=== PATIENT | female | born 1960 ===

== ENCOUNTER 2020-04-25 08:44 | Outpatient (REF) | payer MEDICARE, MEDICAID, SELFPAY ==
[2020-04-25 10:19] LABS: Alanine Aminotransferase 13 U/L (0-31); Alkaline Phosphatase 118 U/L (39-117); Anion Gap 12 (12-20); Aspartate Amino Transferase 14 U/L (5-31); Bilirubin Total 0.5 mg/dL (0.0-1.0); Blood Urea Nitrogen 13 mg/dL (9-16); Calcium 9.3 mg/dL (8.4-10.2); Carbon Dioxide 33 mmol/L (22-29); Chloride 101 mmol/L (96-108); Cholesterol 157 mg/dL; Estimated Glomerular Filt Rate > 60; Glucose Fasting 86 mg/dL (60-99); HDL Cholesterol 49 mg/dL; LDL Cholesterol Calculated 95 mg/dl; Potassium 3.9 mmol/l (3.3-5.1); Sodium 142 mmol/L (135-145); Total Protein 7.6 g/dL (6.5-8.0); Triglycerides 68 mg/dL
[2020-04-25 10:20] LABS: Creatinine Urine 197.62 mg/dL
[2020-04-25 10:22] LABS: Estimated Average Glucose 128 mg/dL; Hemoglobin A1c % 6.1 %
[2020-04-25 10:36] LABS: Vitamin B12 437 pg/mL (200-900)
== END 2020-04-25 08:45 | disposition home or self-care (01) ==
LOC: HO.LAB 08:44
PROVIDERS: PCP Internal Medicine; Visit Provider Nurse Practitioner Gerontology
DX: E11.9 Type 2 diabetes mellitus without complications (principal); Z79.4 Long term (current) use of insulin
CPT/HCPCS: 36415; 80053; 80061; 82043; 82607; 83036

== ENCOUNTER → 2020-09-25 08:43 | Outpatient (BNVA) | payer MEDICARE, MEDICAID, SELFPAY | PROVIDERS: PCP Internal Medicine; Visit Provider Nurse Practitioner Gerontology | DX: E11.9 Type 2 diabetes mellitus without complications (principal); E78.5 Hyperlipidemia, unspecified; E66.01 Morbid (severe) obesity due to excess calories; I10 Essential (primary) hypertension; R74.8 Abnormal levels of other serum enzymes; Z68.41 Body mass index [BMI] 40.0-44.9, adult; Z79.4 Long term (current) use of insulin | CPT/HCPCS: 82947; 99212 ==

== ENCOUNTER → 2021-07-07 09:27 | Outpatient (BNVA) | payer MEDICARE, MEDICAID, SELFPAY | PROVIDERS: PCP Internal Medicine; Visit Provider Nurse Practitioner Gerontology | DX: E66.01 Morbid (severe) obesity due to excess calories (principal); I10 Essential (primary) hypertension; E78.5 Hyperlipidemia, unspecified; Z68.41 Body mass index [BMI] 40.0-44.9, adult | CPT/HCPCS: 82947; 83036; 99212 ==

== ENCOUNTER 2021-07-10 09:17 | Outpatient (REF) | payer MEDICARE, MEDICAID, SELFPAY ==
[2021-07-10 10:30] LABS: Alanine Aminotransferase 15 U/L (0-31); Alkaline Phosphatase 144 U/L (39-117); Anion Gap 14 (12-20); Aspartate Amino Transferase 15 U/L (5-31); Bilirubin Total 0.6 mg/dL (0.0-1.0); Blood Urea Nitrogen 10 mg/dL (9-16); Calcium 9.9 mg/dL (8.4-10.2); Carbon Dioxide 31 mmol/L (22-29); Chloride 101 mmol/L (96-108); Cholesterol 156 mg/dL; Estimated Glomerular Filt Rate > 60; Glucose Fasting 103 mg/dL (60-99); HDL Cholesterol 43 mg/dL; LDL Cholesterol Calculated 94 mg/dl; Sodium 142 mmol/L (135-145); Total Protein 7.6 g/dL (6.5-8.0); Triglycerides 98 mg/dL
[2021-07-10 11:21] LABS: Vitamin B12 455 pg/mL (200-900)
[2021-07-10 12:41] LABS: Creatinine Urine 214.28 mg/dL; Microalbum/Creatinine Ratio Ur 5.1 ug/mg cr
[2021-07-11 16:11] LABS: LDL Cholesterol Direct 84 mg/dL (<100)
[2021-07-16 06:41] LABS: Alk.Phos Iso. Macrohepatic 0 % (<=0); Alk.Phos Isoenzymes Bone 25 % (28-66); Alk.Phos Isoenzymes Intest 0 % (1-24); Alk.Phos Isoenzymes Liver 75 % (25-69); Alk.Phos Isoenzymes Placental 0 % (<=0); Alk.Phos Isoenzymes Total 135 U/L (37-153)
== END 2021-07-10 09:18 | disposition home or self-care (01) ==
LOC: HO.LAB 09:17
PROVIDERS: PCP Internal Medicine; Visit Provider Nurse Practitioner Gerontology
DX: E11.9 Type 2 diabetes mellitus without complications (principal); R74.8 Abnormal levels of other serum enzymes; Z79.4 Long term (current) use of insulin
CPT/HCPCS: 36415; 80053; 80061; 82043; 82607; 83721; 84080

== ENCOUNTER 2021-10-22 20:17 | Emergency (ER) | payer MEDICARE, MEDICAID, SELFPAY ==
--- NOTE | ~2021-10-22 | XR_ITS ---
EXAMINATION: XR CHEST CLINICAL INFORMATION: Shortness of breath COMPARISON: Chest x-ray 11/17/2019 TECHNIQUE: 2 views of the chest were obtained. FINDINGS: Mild linear subsegmental atelectasis or scarring in the lingula. No airspace consolidation. No pleural effusion or pneumothorax. Normal cardiomediastinal silhouette and pulmonary vascularity. No acute osseous injury. XR/XR chest 2V IMPRESSION: No acute pulmonary process.
[2021-10-22 20:42] VITALS: BP 147/66; PULSE 67; RESP 20; TEMP 37.1; O2SAT 94; BMI 42.4
--- NOTE | 2021-10-22 20:44 | ECG_ITS ---
Test Reason : sob Blood Pressure : / mmHG Vent. Rate : 061 BPM Atrial Rate : 061 BPM P-R Int : 168 ms QRS Dur : 092 ms QT Int : 398 ms P-R-T Axes : 012 -10 021 degrees QTc Int : 400 ms Normal sinus rhythm Normal ECG When compared with ECG of 07-OCT-2018 01:26, No significant change was found Referred By: Generic ED Physician Electronically Signed By:CARLOS LONGORIA MD
[2021-10-22 22:08] LABS: MANUAL DIFF FLAG NO
[2021-10-22 22:10] LABS: Basophils Percent Auto 0.3 % (0-2); Eosinophils Absolute Auto 0.3 X10*3/uL (0.0-0.4); Eosinophils Percent Auto 2.6 % (0-4); Hematocrit 36.2 % (37.0-47.0); Hemoglobin 11.6 g/dl (12.0-16.0); Imm Gran Abs Auto 0.03 X10*3/uL (0.00-0.03); Imm Gran Pct Auto 0.3 % (0.0-0.4); Lymphocytes Absolute Auto 2.1 X10*3/uL (1.2-4.9); Lymphocytes Percent Auto 20.9 % (20-40); Mean Corpuscular Hemoglobin 28.6 pg (27.0-33.0); Mean Corpuscular Volume 89.4 fL (80.0-98.0); Mean Platelet Volume 10.7 fL (9.4-12.3); Monocytes Absolute Auto 0.6 X10*3/uL (0.1-1.2); Monocytes Percent Auto 6.3 % (2-11); Neutrophils Percent Auto 69.6 % (45-73); Platelet Count 306 X10*3/uL (160-400); Red Blood Count 4.05 X10*6/uL (4.20-5.50); White Blood Count 10.1 X10*3/uL (4.8-10.8)
[2021-10-22 22:27] LABS: Alanine Aminotransferase 13 U/L (0-31); Albumin Level 4.2 g/dL (3.5-5.0); Alkaline Phosphatase 132 U/L (39-117); Anion Gap 13 (12-20); Aspartate Amino Transferase 15 U/L (5-31); Bilirubin Total 0.5 mg/dL (0.0-1.0); Blood Urea Nitrogen 15 mg/dL (9-16); Calcium 9.5 mg/dL (8.4-10.2); Carbon Dioxide 29 mmol/L (22-29); Chloride 102 mmol/L (96-108); Creatinine Clr Calc Pharmacy 68.1; Estimated Glomerular Filt Rate 57; Glucose Random 94 mg/dL (60-115); Potassium 4.5 mmol/L (3.3-5.1); Sodium 139 mmol/L (135-145); Total Protein 7.7 g/dL (6.5-8.0)
[2021-10-22 22:34] LABS: B Type Natriuretic Peptide 26 pg/mL (<100); Troponin-I High Sensitivity < 3.5 ng/L (<3.5-17.0)
[2021-10-23] VITALS: BP 149/76; PULSE 83; RESP 17; TEMP 36.6; O2SAT 96
--- NOTE | 2021-10-23 00:28 | ED_ITS ---
HPI - Extremity Problem General Chief complaint: Extremity Injury, Lower Stated complaint: both legs red and swollen Time Seen by Provider: 10/22/21 21:44 Source: patient Mode of arrival: ambulatory Limitations: no limitations History of Present Illness HPI Narrative: Patient has history of chronic leg edema used to be on hydrochlorothiazide 25 mg and lisinopril changed by PCP to 12.5 mg hydrochlorothiazide and amlodipine for allergic reaction to lisinopril comes here for increasing leg swelling for last 1 month denies any shortness of breath or significant pain in the legs no fever no chills patient urinating well Related Data Home Medications Medication Instructions Recorded Confirmed amlodipine 5 mg tablet 5 mg PO DAILY 03/20/20 07/07/21 hydrochlorothiazide 25 mg tablet 25 mg PO DAILY 03/20/20 07/07/21 ibuprofen 600 mg tablet 600 mg PO Q6H PRN pain 03/20/20 07/07/21 levothyroxine 112 mcg tablet 112 mcg PO DAILY 03/20/20 07/07/21 metformin 1,000 mg tablet 1,000 mg PO DAILY 03/20/20 07/07/21 gabapentin 300 mg capsule 300 mg PO BEDTIME 07/07/21 07/07/21 latanoprost 0.005 % eye drops 1 drp ophthalmic (eye) BEDTIME 07/07/21 07/07/21 Previous Rx's Medication Instructions Recorded blood sugar diagnostic (OneTouch #100 ea 02/14/21 Verio test strips) blood-glucose meter (OneTouch #1 ea 02/14/21 Verio Flex Start) insulin aspart U-100 100 unit/mL 8 - 10 unit (0.08 - 0.1 mL) subcut 03/18/21 (3 mL) subcutaneous pen (Novolog .COMPLEX 28 days #15 mL Flexpen U-100 Insulin aspart) pen needle, diabetic 32 gauge x #100 ea 05/22/21 (BD Ultra-Fine Sulma Pen Needle) atorvastatin 10 mg tablet 10 mg PO QPM 30 days #30 tabs 06/16/21 dulaglutide 1.5 mg/0.5 mL 1.5 mg (0.5 mL) subcut QWEEK #2 mL 08/15/21 subcutaneous pen injector insulin degludec 200 unit/mL (3 46 unit (0.23 mL) subcut DAILY #9 08/20/21 mL) subcutaneous pen (Tresiba mL FlexTouch U-200 insulin) lancets 33 gauge (OneTouch Delica #100 ea 10/17/21 Lancets) Allergies Allergy/AdvReac Type Severity Reaction Status Date / Time lisinopril [LISINOPRIL] Allergy Intermediate SWELLING Verified 10/22/21 20:41 acetaminophen [From FIORICET] Allergy Unknown RASH Verified 10/22/21 20:41 butalbital [From FIORICET] Allergy Unknown RASH Verified 10/22/21 20:41 caffeine [From FIORICET] Allergy Unknown RASH Verified 10/22/21 20:41 insulin glargine Allergy Unknown SWEATING Verified 10/22/21 20:41 [From LANTUS U-100 INSULIN] FEET Review of Systems Review of Systems: Yes all other systems are reviewed and are negative [facility] Past Medical History Medical History BMI 40.0-44.9, adult Controlled diabetes mellitus without complication, with long-term current use of insulin Essential hypertension Hyperlipidemia LDL goal <100 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 Obesity due to excess calories Pain in left foot Surgical History Hx of appendectomy Hx of cholecystectomy Family History Family History Father Diabetes CVD (cardiovascular disease) Mother CVD (cardiovascular disease) Social History Social History Household Members: None Patient Tobacco Use Status: Never used Tobacco Advance Directives: No Physical Exam Vital Signs: Vital Signs: Last Vital Signs Temp 98.7 F 10/22/21 20:42 Pulse 67 10/22/21 20:42 Resp 20 10/22/21 20:42 BP 147/66 H 10/22/21 20:42 Pulse Ox 94 10/22/21 20:42 O2 Del Method 10/22/21 20:42 BMI result Body Mass Index 42.4 Appearance: Alert. Oriented X3. No acute distress. Eyes: No pallor or icterus ENT: Pharynx normal. Oral Mucosa moist Neck: Normal inspection. Neck supple. CVS: Normal heart rate and rhythm. Pulses normal. Respiratory: No respiratory distress. Equal air entry bilateral, no wheezing/rales/rhonchi Abdomen: Soft and nontender. Bowel sounds are present, no mass palpable, no CVA tenderness Skin: Skin warm and dry. Normal skin color. Normal skin turgor. Extremities: 3+ lower extremity edema. No calf tenderness Neuro: Oriented X 3. No motor deficit. No sensory deficit.No cerebellar signs , cranial nerves II-XII intact MDM - Extremity (Nontraumatic) MDM Narrative Medical decision making narrative: Patient demanded acute edema labs are stable with normal kidney functions and BNP chest x-ray is clear patient's swelling has increased after decreasing dose of hydrochlorothiazide will increase the dose of hydrochlorothiazide advised to follow with PCP Lab Data Attestation: I reviewed the patient's lab results. Result diagrams: 10/22/21 21:54 10/22/21 21:54 Labs: Lab Results 10/22/21 10/22/21 10/22/21 Range/Units 21:54 21:54 21:54 WBC 10.1 (4.8-10.8) X10*3/uL RBC 4.05 L (4.20-5.50) X10*6/uL Hgb 11.6 L (12.0-16.0) g/dl Hct 36.2 L (37.0-47.0) % MCV 89.4 (80.0-98.0) fL MCH 28.6 (27.0-33.0) pg MCHC 32.0 (31.0-35.0) g/dl RDW 13.0 (11.0-16.0) % Plt Count 306 (160-400) X10*3/uL MPV 10.7 (9.4-12.3) fL Immature Gran % (Auto) 0.3 (0.0-0.4) % Neut % (Auto) 69.6 (45-73) % Lymph % (Auto) 20.9 (20-40) % Emery % (Auto) 6.3 (2-11) % Eos % (Auto) 2.6 (0-4) % Baso % (Auto) 0.3 (0-2) % Lymph # (Auto) 2.1 (1.2-4.9) X10*3/uL Emery # (Auto) 0.6 (0.1-1.2) X10*3/uL Eos # (Auto) 0.3 (0.0-0.4) X10*3/uL Baso # (Auto) 0.0 (0.0-0.2) X10*3/uL Abs Immat Gran (auto) 0.03 (0.00-0.03) X10*3/uL Absolute Neuts (auto) 7.0 (2.0-8.3) x10*3/uL Absolute Nucleated RBC 0.000 (0.0-0.012) X10*3/uL Nucleated RBC % (auto) 0.0 (0.0-0.2) /100WBC Sodium 139 (135-145) mmol/L Potassium 4.5 (3.3-5.1) mmol/L Chloride 102 (96-108) mmol/L Carbon Dioxide 29 (22-29) mmol/L Anion Gap 13 (12-20) BUN 15 (9-16) mg/dL Creatinine 1.00 (0.5-1.4) mg/dL Estim Creat Clear Calc 68.1 Estimated GFR 57 Random Glucose 94 (60-115) mg/dL Calcium 9.5 (8.4-10.2) mg/dL Total Bilirubin 0.5 (0.0-1.0) mg/dL AST 15 (5-31) U/L ALT 13 (0-31) U/L Alkaline Phosphatase 132 H (39-117) U/L Troponin I High Sens < 3.5 (<3.5-17.0) ng/L B-Natriuretic Peptide 26 (<100) pg/mL Total Protein 7.7 (6.5-8.0) g/dL Albumin 4.2 (3.5-5.0) g/dL Discharge Plan Discharge Clinical Impression: Dependent edema Patient Disposition: Home, Self-Care Instructions: Leg Edema (ED) Additional Instructions: Do not stand for long, keep your feet elevated Increase the dose of hydrochlorothiazide to 50 mg daily for next 2 days And then bring the dose to 25 mg daily Check your weight daily Follow-up with your PCP Prescriptions: No Action (DME) blood-glucose meter [OneTouch Verio Flex Start] Kit See Rx Instructions .Route Qty: 1 0RF Rx Instructions: As directed 3x/day (DME) OneTouch Verio test strips Strip See Rx Instructions .Route Qty: 100 11RF Rx Instructions: As directed to test blood sugar 3 times a day insulin aspart U-100 [Novolog Flexpen U-100 Insulin] 100 unit/mL (3 mL) insulin pen 8 - 10 unit subcut .COMPLEX 28 Days Qty: 15 4RF Rx Instructions: 8 - 10 units subcut before dinner; (DME) pen needle, diabetic [BD Ultra-Fine Sulma Pen Needle] 32 gauge x 5/32 needle See Rx Instructions .ROUTE .MEDSUPPLY Qty: 100 11RF Rx Instructions: As directed two times a day atorvastatin 10 mg tablet 10 mg PO QPM 30 Days Qty: 30 4RF dulaglutide 1.5 mg/0.5 mL pen injector 1.5 mg subcut QWEEK Qty: 2 6RF Tresiba FlexTouch U-200 200 unit/mL (3 mL) insulin pen 46 unit subcut DAILY Qty: 9 5RF (DME) lancets [OneTouch Delica Lancets] 33 gauge misc See Rx Instructions .ROUTE .MEDSUPPLY Qty: 100 11RF Rx Instructions: Three times a day gabapentin 300 mg capsule 300 mg PO BEDTIME latanoprost 0.005 % drops 1 drp ophthalmic (eye) BEDTIME hydrochlorothiazide 25 mg tablet 25 mg PO DAILY amlodipine 5 mg tablet 5 mg PO DAILY levothyroxine 112 mcg tablet 112 mcg PO DAILY ibuprofen 600 mg tablet 600 mg PO Q6H PRN (Reason: pain) metformin 1,000 mg tablet 1,000 mg PO DAILY Print Language: Lebanese
== END 2021-10-23 01:28 | disposition home or self-care (01) ==
PROVIDERS: Emergency Provider Internal Medicine
DX: R06.02 Shortness of breath (principal); R60.0 Localized edema; E11.9 Type 2 diabetes mellitus without complications; Z79.4 Long term (current) use of insulin; Z79.899 Other long term (current) drug therapy
CPT/HCPCS: 36415; 71046; 80053; 83880; 84484; 85025; 93005; 99283

== ENCOUNTER 2021-11-11 14:59 | Emergency (ER) | payer MEDICARE, MEDICAID, SELFPAY ==
[2021-11-11 16:40] VITALS: BP 142/69; PULSE 62; RESP 18; TEMP 36.3; O2SAT 96; BMI 41.8
[2021-11-11] MEDS: Ibuprofen 600 MG TABLET PO (16:45)
== END 2021-11-11 20:52 | disposition left against medical advice (07) ==
PROVIDERS: Emergency Provider Emergency Medicine
DX: R51.9 Headache, unspecified (principal); I10 Essential (primary) hypertension; E11.9 Type 2 diabetes mellitus without complications; Z79.4 Long term (current) use of insulin
CPT/HCPCS: 99282; 99283

== ENCOUNTER 2022-06-09 13:19 | Emergency (ER) | payer MEDICARE, MEDICAID, SELFPAY ==
--- NOTE | ~2022-06-09 | XR_ITS ---
EXAMINATION: XR FOOT, LEFT CLINICAL INFORMATION: Foot pain COMPARISON: 12/14/2018 TECHNIQUE: AP, lateral, and oblique views of the left foot. FINDINGS: Moderate soft tissue swelling is seen predominantly over the dorsum of the metatarsal bones. No acute fracture or dislocation is seen. Mild irregularity to the medial aspect of the distal navicular does not appear significantly changed compared to prior. Dorsal beaking is identified at the distal talus and a well-defined plantar calcaneal spur is seen. Vascular calcification is seen. XR/XR foot LT min 3V IMPRESSION: Soft tissue swelling. Normal alignment without joint space narrowing or visible fracture line seen.
--- NOTE | ~2022-06-09 | US_ITS ---
EXAMINATION: US VENOUS ULTRASOUND WITH DOPPLER LOWER EXTREMITY, LEFT CLINICAL INFORMATION: Left calf pain COMPARISON: Left lower extremity venous Doppler 12/14/2018 TECHNIQUE: Ultrasound of the deep veins is performed from the hip to the calf with compression sonography and color and pulse Doppler assessment. Spectral analysis with color-flow imaging is performed. FINDINGS: There is normal venous compression and respiratory variation and augmented flow. The visualized common femoral vein, superficial femoral vein, profunda femoral vein, popliteal vein, and the trifurcation region shows no evidence of deep venous thrombosis. There is no significant popliteal fossa cyst. A fatty containing lymph node is seen in the left inguinal region measuring 4.3 x 0.9 x 1.7 cm. If the patient's symptoms persist, followup ultrasound in 5 days 7 days might be of value to exclude proximal propagation from a non-visualized calf vein. US/US venous duplex LE IMPRESSION: No DVT demonstrated in the left lower extremity. Slightly prominent left inguinal lymph node. The lymph node contains fat centrally. Recommend clinical follow-up of this finding.
[2022-06-09 13:37] VITALS: BP 155/47; PULSE 69; RESP 16; TEMP 36.7; O2SAT 97; BMI 43.9
--- NOTE | 2022-06-09 13:37 | ED.LOWEXIN ---
HPI - Extremity Injury (Lower) General Chief Complaint: Extremity Problem <REED Rouse Last Filed: 06/09/22 15:26> Stated Complaint: L leg pain <REED Rouse Last Filed: 06/09/22 15:26> Time Seen by Provider: 06/09/22 17:02 <REED Rouse Last Filed: 06/09/22 15:26> Source: patient and family (Daughter at bedside) <REED Thomas Last Filed: 06/09/22 18:33> Mode of arrival: ambulatory <REED Thomas Last Filed: 06/09/22 18:33> Limitations: language barrier (Khmer-speaking) <REED Thomas Last Filed: 06/09/22 18:33> History of Present Illness HPI Narrative: 62yoF with a PMHx of diabetes, hypertension, hyperlipidemia, hypothyroidism, obesity who is presenting to the ER with complaints of atraumatic left foot/ankle pain with swelling and some erythema for the past few days worse today. Reports that she has been trying to take Motrin [id number] and is providing mild to no symptomatic relief. She reports it is worse when she tries to ambulate or at nighttime when she is trying to sleep. She reports she normally has lower extremity edema is currently on Lasix. The lower extremity edema is not worsen. She denies any dizziness, neck pain/stiffness, sore throat, cough, chest pain or shortness of breath, dyspnea on exertion, orthopnea, palpitations, paresthesias, nausea/vomiting/diarrhea, abdominal pain, flank pain, calf pain, recent travel or falls, recent immobilization or surgery, history of DVT or PE, any estrogen usage, history of cancer, hypercoagulation disorder, recent long travel or any other symptoms complaints or concerns at this time <REED Thomas Last Filed: 06/09/22 18:33> MD complaint: other (Left foot/ankle pain/swelling/redness) <REED Thomas Last Filed: 06/09/22 18:33> Onset (ago): day(s) (Past few days worse today) <REED Thomas Last Filed: 06/09/22 18:33> Severity: moderate <REED Thomas - Last Filed: 06/09/22 18:33> Relieving factors: NSAID (Mild relief with Motrin) <REED Thomas - Last Filed: 06/09/22 18:33> Exacerbating factors: weight bearing, movement and palpation <REED Thomas - Last Filed: 06/09/22 18:33> Other symptoms: none <REED Thomas - Last Filed: 06/09/22 18:33> Related Data Home Medications: Home Medications Medication Instructions Recorded Confirmed amlodipine 5 mg tablet 5 mg PO DAILY 03/20/20 07/07/21 hydrochlorothiazide 25 mg tablet 25 mg PO DAILY 03/20/20 07/07/21 ibuprofen 600 mg tablet 600 mg PO Q6H PRN pain 03/20/20 07/07/21 levothyroxine 112 mcg tablet 112 mcg PO DAILY 03/20/20 07/07/21 metformin 1,000 mg tablet 1,000 mg PO DAILY 03/20/20 07/07/21 gabapentin 300 mg capsule 300 mg PO BEDTIME 07/07/21 07/07/21 latanoprost 0.005 % eye drops 1 drp ophthalmic (eye) BEDTIME 07/07/21 07/07/21 Previous Rx's Medication Instructions Recorded blood sugar diagnostic ([employer] ServicesTouch #100 ea 02/14/21 Verio test strips) blood-glucose meter ([employer] #1 ea 02/14/21 Verio Flex Start kit) pen needle, diabetic 32 gauge x #100 ea 05/22/2132 (BD Ultra-Fine Sulma Pen Needle) dulaglutide 1.5 mg/0.5 mL 1.5 mg (0.5 mL) subcut QWEEK #2 mL 08/15/21 subcutaneous pen injector insulin degludec 200 unit/mL (3 46 unit (0.23 mL) subcut DAILY #9 08/20/21 mL) subcutaneous pen (Tresiba mL FlexTouch U-200 insulin) lancets 33 gauge ([employer]Touch Delrhett #100 ea 10/17/21 Lancets) atorvastatin 10 mg tablet 10 mg PO QPM 30 days #30 tabs 11/10/21 insulin aspart U-100 100 unit/mL 8 - 10 unit (0.08 - 0.1 mL) subcut 02/26/22 (3 mL) subcutaneous pen (Novolog .COMPLEX 28 days #15 mL FlexPen U-100 Insulin aspart) indomethacin 50 mg capsule 50 mg PO Q8H gout 5 days #15 caps 06/09/22 oxycodone 5 mg tablet 5 mg PO Q6H PRN pain #14 tabs 06/09/22 prednisone 20 mg tablet 40 mg PO DAILY inflammation 5 days 06/09/22 #10 tabs <REED Rouse - Last Filed: 06/09/22 15:26> Allergies/Adverse Reactions: Allergies Allergy/AdvReac Type Severity Reaction Status Date / Time lisinopril [LISINOPRIL] Allergy Intermediate SWELLING Verified 11/11/21 16:39 acetaminophen [From FIORICET] Allergy Unknown RASH Verified 11/11/21 16:39 butalbital [From FIORICET] Allergy Unknown RASH Verified 11/11/21 16:39 caffeine [From FIORICET] Allergy Unknown RASH Verified 11/11/21 16:39 insulin glargine Allergy Unknown SWEATING Verified 11/11/21 16:39 [From LANTUS U-100 INSULIN] FEET <REED Rouse - Last Filed: 06/09/22 15:26> Review of Systems Review of Systems: Constitutional : No Weight loss, No Fever, No Chills, No Night Sweats, No Fatigue, No Malaise ENT/Mouth : No Hearing loss, No Ear Pain, No Nasal Congestion, No Sinus Pain, No Hoarseness, No sore throat, No Rhinorrhea, No Swallowing Difficulty Eyes: No Eye Pain, No Swelling, No Redness, No Foreign Body, No Discharge, No Vision Changes Cardiovascular : No Chest Pain, No SOB, No Dyspnea on Exertion, No Orthopnea, No Edema, No Palpitations Respiratory : No Cough, No Sputum, No Wheezing, No Smoke Exposure, No Dyspnea Gastrointestinal : No Nausea, No Vomiting, No Diarrhea, No Constipation, No abdominal Pain, No Hematochezia, No Melena Genitourinary : no irregular bleeding, No Dysuria, No Urinary Frequency, No Hematuria, No Urinary Incontinence, No Urgency, No Flank Pain, No Urinary Flow Changes, No Hesitancy Musculoskeletal : + left foot/ankle joint pain/swelling, No Myalgias Skin : No Skin Lesions, No rash Neuro : No Weakness, No Numbness, No Paresthesias, No Loss of Consciousness, No Dizziness, No Headache Psych : No Anxiety/Panic, No Depression, No SI/HI/AH/VH, No Social Issues, Heme/Lymph: No Bruising, No Bleeding,No Lymphadenopathy Endocrine : No Polyuria, No Polydipsia, No Temperature Intolerance <REED Thomas - Last Filed: 06/09/22 18:33> Yes all other systems are reviewed and are negative <REED Thomas - Last Filed: 06/09/22 18:33> [facility] Past Medical History Attestation statement: The following information was validated with the patient. <REED Thomas - Last Filed: 06/09/22 18:33> Source: old records reviewed, obtained from family and nursing notes reviewed <REED Thomas - Last Filed: 06/09/22 18:33> Medical History: Medical History BMI 40.0-44.9, adult Controlled diabetes mellitus without complication, with long-term current use of insulin Essential hypertension Hyperlipidemia LDL goal <100 Hypothyroidism intermediate current use of insulin Obesity due to excess calories Pain in left foot <REED Rouse - Last Filed: 06/09/22 15:26> Surgical History: Surgical History Hx of appendectomy Hx of cholecystectomy <REED Rouse - Last Filed: 06/09/22 15:26> Family History Family History: Family History Father Diabetes CVD (cardiovascular disease) Mother CVD (cardiovascular disease) <REED Rouse - Last Filed: 06/09/22 15:26> Social History Social History: Social History Household Members: None Patient Tobacco Use Status: Never used Tobacco Advance Directives: No Advance Directives Information Provided: No <REED Rouse - Last Filed: 06/09/22 15:26> Physical Exam Vital Signs: Vital Signs: Last Vital Signs Temp 97.3 F 06/09/22 15:25 Pulse 68 06/09/22 15:25 Resp 16 06/09/22 15:25 BP 145/69 H 06/09/22 15:25 Pulse Ox 98 06/09/22 15:25 O2 Del Method 06/09/22 15:25 BMI result Body Mass Index 43.9 <REED Rouse - Last Filed: 06/09/22 15:26> Vital Signs: Last Vital Signs Temp 97.3 F 06/09/22 15:25 Pulse 68 06/09/22 15:25 Resp 16 06/09/22 15:25 BP 145/69 H 06/09/22 15:25 Pulse Ox 98 06/09/22 15:25 O2 Del Method 06/09/22 15:25 BMI result Body Mass Index 43.9 Vital signs reviewed. Blood pressure 155/47. Pulse normal. Respiration normal. Oxygen normal. Temperature normal. <REED Thomas - Last Filed: 06/09/22 18:33> Appearance: Alert. Oriented X3. No acute distress. Head: Normal external exam. Normocephalic. Atraumatic. Eyes: PERRLA. EOMI. Conjunctiva and sclera normal. Eyelids normal. ENT: EAC normal. TM's Normal. Pharynx normal. Uvula midline. Moist mucous membranes. No lesions/ulcerations or masses noted on the tongue. Normal voice. No trismus noted. No drooling noted. No muffled voice noted. Neck: Normal inspection. Neck supple. FROM. No adenopathy. Thyroid Normal. No meningeal signs. CVS: Normal heart rate and rhythm. Heart sound normal. Pulses normal throughout. No murmurs/rales/gallops. Respiratory: No respiratory distress. Painless inspiration. Breath sounds normal. No wheezes/rales/rhonchi noted. Chest nontender. No accessory muscle usage noted or decreased air movement noted. Abdomen: Soft and nontender. Back: Full range of motion noted. Nontender. Skin: Skin warm and dry. Normal skin color. Normal skin turgor. No rashes/lesions/lacerations noted. Extremities: Patient with tenderness palpation to the medial/plantar aspect of the left foot with mild soft tissue swelling and mild erythema. There is no streaking. She has full range of motion of the left foot/ankle and knee joint. Otherwise all other extremities exhibit normal range of motion. She does have some lower extremity edema. There is no calf tenderness noted. Neuro: Oriented X 3. No motor deficit. No sensory deficit. Reflexes normal. Normal steady gait. No focal neuro deficits noted. CN's II-XII intact bilaterally? Vascular: + radial pulses. Normal cap refill. No cyanosis noted to upper extremity nails <REED Thomas - Last Filed: 06/09/22 18:33> Course Course Course Narrative: RME--62-year-old female past medical history of HTN, HLD, hypothyroid complaining of left foot pain x few days. Denies injury/fall or trauma VSS. Mild left foot swelling/erythema noted to plantar medial aspect with tenderness. XRs & US ordered <REED Rouse - Last Filed: 06/09/22 15:26> Reevaluation(s) Reevaluation #1: 62yoF with a PMHx of diabetes, hypertension, hyperlipidemia, hypothyroidism, obesity who is presenting to the ER with complaints of atraumatic left foot/ankle pain with swelling and some erythema for the past few days worse today. Reports that she has been trying to take Motrin [id number] and is providing mild to no symptomatic relief. She reports it is worse when she tries to ambulate or at nighttime when she is trying to sleep. She reports she normally has lower extremity edema is currently on Lasix. The lower extremity edema is not worsen. Labs were obtained and carbon dioxide 32. BUN 19. Random glucose 146. Uric acid is 6.7. Alkaline phosphate 157. Otherwise all other labs are within normal limits. BNP is 16. Patient had a venous duplex ultrasound of left lower extremity which was negative for DVT although revealed prominent left inguinal lymph node which contained some fat. Although when I examined the patient I do not feel a hernia or this left inguinal lymph node that contains fat. Left foot x-ray reveals some soft tissue swelling and a bone spur otherwise no other acute processes. Therefore at this time exam is not consistent with DVT, fracture, sprain, cellulitis, septic joint. Patient exam and labs consistent with gout. Therefore at this time will start patient on short course of steroids I explained her that she will have to check her blood sugars more often and alter her insulin as needed, will also send home with indomethacin and oxycodone for her pain with instructions to follow-up with PCP and podiatry and to return if any new or worsening symptoms. Patient with daughter at bedside understand agree this plan. <REED Thomas - Last Filed: 06/09/22 18:33> Time: 18:30 <REED Thomas - Last Filed: 06/09/22 18:33> Medications Administered Discontinued Medications Generic Name Dose Route Start Last Admin Trade Name Freq PRN Reason Stop Dose Admin Naproxen 500 mg 06/09/22 17:08 06/09/22 17:28 Naproxen 500 Mg Tablet PO 06/09/22 17:09 500 mg ONCE ONE Administration <REED Rouse - Last Filed: 06/09/22 15:26> Medications Administered Discontinued Medications Generic Name Dose Route Start Last Admin Trade Name Freq PRN Reason Stop Dose Admin Naproxen 500 mg 06/09/22 17:08 06/09/22 17:28 Naproxen 500 Mg Tablet PO 06/09/22 17:09 500 mg ONCE ONE Administration <REED Thomas - Last Filed: 06/09/22 18:33> Medical Decision Making Lab Data MDM Lab Attestation statement: I reviewed the patient's lab results. <REED hTomas - Last Filed: 06/09/22 18:33> Result Diagrams: 06/09/22 17:24 06/09/22 17:24 <REED Rouse - Last Filed: 06/09/22 15:26> Labs: Lab Results 06/09/22 06/09/22 06/09/22 Range/Units 17:24 17:24 17:24 WBC 9.8 (4.8-10.8) X10*3/uL RBC 4.50 (4.20-5.50) X10*6/uL Hgb 13.0 (12.0-16.0) g/dl Hct 39.5 (37.0-47.0) % MCV 87.8 (80.0-98.0) fL MCH 28.9 (27.0-33.0) pg MCHC 32.9 (31.0-35.0) g/dl RDW 12.8 (11.0-16.0) % Plt Count 315 (160-400) X10*3/uL MPV 10.4 (9.4-12.3) fL Immature Gran % (Auto) 0.3 (0.0-0.4) % Neut % (Auto) 68.3 (45-73) % Lymph % (Auto) 21.7 (20-40) % Humphreys % (Auto) 5.8 (2-11) % Eos % (Auto) 3.3 (0-4) % Baso % (Auto) 0.6 (0-2) % Lymph # (Auto) 2.1 (1.2-4.9) X10*3/uL Humphreys # (Auto) 0.6 (0.1-1.2) X10*3/uL Eos # (Auto) 0.3 (0.0-0.4) X10*3/uL Baso # (Auto) 0.1 (0.0-0.2) X10*3/uL Abs Immat Gran (auto) 0.03 (0.00-0.03) X10*3/uL Absolute Neuts (auto) 6.7 (2.0-8.3) x10*3/uL Absolute Nucleated RBC 0.000 (0.0-0.012) X10*3/uL Nucleated RBC % (auto) 0.0 (0.0-0.2) /100WBC Sodium 144 (135-145) mmol/L Potassium 3.6 (3.3-5.1) mmol/L Chloride 102 (96-108) mmol/L Carbon Dioxide 32 H (22-29) mmol/L Anion Gap 14 (12-20) BUN 19 H (9-16) mg/dL Creatinine 1.14 (0.5-1.4) mg/dL Estim Creat Clear Calc 60.2 Estimated GFR 48 Random Glucose 146 H (60-115) mg/dL Uric Acid 6.7 H (2.4-5.7) mg/dL Calcium 9.3 (8.4-10.2) mg/dL Magnesium 1.6 (1.6-2.6) mg/dL Total Bilirubin 0.4 (0.0-1.0) mg/dL AST 17 (5-31) U/L ALT 16 (0-31) U/L Alkaline Phosphatase 157 H (39-117) U/L B-Natriuretic Peptide 16 (<100) pg/mL Total Protein 7.9 (6.5-8.0) g/dL Albumin 4.1 (3.5-5.0) g/dL <REED Rouse - Last Filed: 06/09/22 15:26> Lab Results 06/09/22 06/09/22 06/09/22 Range/Units 17:24 17:24 17:24 WBC 9.8 (4.8-10.8) X10*3/uL RBC 4.50 (4.20-5.50) X10*6/uL Hgb 13.0 (12.0-16.0) g/dl Hct 39.5 (37.0-47.0) % MCV 87.8 (80.0-98.0) fL MCH 28.9 (27.0-33.0) pg MCHC 32.9 (31.0-35.0) g/dl RDW 12.8 (11.0-16.0) % Plt Count 315 (160-400) X10*3/uL MPV 10.4 (9.4-12.3) fL Immature Gran % (Auto) 0.3 (0.0-0.4) % Neut % (Auto) 68.3 (45-73) % Lymph % (Auto) 21.7 (20-40) % Humphreys % (Auto) 5.8 (2-11) % Eos % (Auto) 3.3 (0-4) % Baso % (Auto) 0.6 (0-2) % Lymph # (Auto) 2.1 (1.2-4.9) X10*3/uL Humphreys # (Auto) 0.6 (0.1-1.2) X10*3/uL Eos # (Auto) 0.3 (0.0-0.4) X10*3/uL Baso # (Auto) 0.1 (0.0-0.2) X10*3/uL Abs Immat Gran (auto) 0.03 (0.00-0.03) X10*3/uL Absolute Neuts (auto) 6.7 (2.0-8.3) x10*3/uL Absolute Nucleated RBC 0.000 (0.0-0.012) X10*3/uL Nucleated RBC % (auto) 0.0 (0.0-0.2) /100WBC Sodium 144 (135-145) mmol/L Potassium 3.6 (3.3-5.1) mmol/L Chloride 102 (96-108) mmol/L Carbon Dioxide 32 H (22-29) mmol/L Anion Gap 14 (12-20) BUN 19 H (9-16) mg/dL Creatinine 1.14 (0.5-1.4) mg/dL Estim Creat Clear Calc 60.2 Estimated GFR 48 Random Glucose 146 H (60-115) mg/dL Uric Acid 6.7 H (2.4-5.7) mg/dL Calcium 9.3 (8.4-10.2) mg/dL Magnesium 1.6 (1.6-2.6) mg/dL Total Bilirubin 0.4 (0.0-1.0) mg/dL AST 17 (5-31) U/L ALT 16 (0-31) U/L Alkaline Phosphatase 157 H (39-117) U/L B-Natriuretic Peptide 16 (<100) pg/mL Total Protein 7.9 (6.5-8.0) g/dL Albumin 4.1 (3.5-5.0) g/dL <REED Thomas - Last Filed: 06/09/22 18:33> Independent Interpretation I performed an independent interpretation of an: Plain X-Ray (X-ray reviewed by myself and discussed with daughter and patient) and Ultrasound (Ultrasound reviewed by myself and discussed with patient and daughter at bedside) <REED Thomas - Last Filed: 06/09/22 18:33> Radiology Impression Discussion of test interpretation with radiology: I have reviewed the radiologist's reading. <REED Thomas - Last Filed: 06/09/22 18:33> Radiologist Impression: EXAMINATION: XR FOOT, LEFT CLINICAL INFORMATION: Foot pain? COMPARISON: 12/14/2018? TECHNIQUE: AP, lateral, and oblique views of the left foot. FINDINGS: Moderate soft tissue swelling is seen predominantly over the dorsum of the metatarsal bones. No acute fracture or dislocation is seen. Mild irregularity to the medial aspect of the distal navicular does not appear significantly changed compared to prior. Dorsal beaking is identified at the distal talus and a well-defined plantar calcaneal spur is seen. Vascular calcification is seen.? XR/XR foot LT min 3V IMPRESSION: Soft tissue swelling. Normal alignment without joint space narrowing or visible fracture line seen. EXAMINATION:? US VENOUS ULTRASOUND WITH DOPPLER LOWER EXTREMITY, LEFT CLINICAL INFORMATION:? Left calf pain COMPARISON:? Left lower extremity venous Doppler 12/14/2018 TECHNIQUE: Ultrasound of the deep veins is performed from the hip to the calf with compression sonography and color and pulse Doppler assessment. Spectral analysis with color-flow imaging is performed. FINDINGS: There is normal venous compression and respiratory variation and augmented flow. The visualized common femoral vein, superficial femoral vein, profunda femoral vein, popliteal vein, and the trifurcation region shows no evidence of deep venous thrombosis. ? There is no significant popliteal fossa cyst. A fatty containing lymph node is seen in the left inguinal region measuring 4.3 x 0.9 x 1.7 cm. If the patient's symptoms persist, followup ultrasound in 5 days 7 days might be of value to exclude proximal propagation from a non-visualized calf vein. US/US venous duplex LE LT IMPRESSION: No DVT demonstrated in the left lower extremity. ? Slightly prominent left inguinal lymph node. The lymph node contains fat centrally. Recommend clinical follow-up of this finding. <REED Thomas - Last Filed: 06/09/22 18:33> Independent Historian Clinical information obtained from an independent historian. History obtained from or confirmed by: Other (Daughter at bedside) <REED Thomas Last Filed: 06/09/22 18:33> External Record Review External record reviewed: Inpatient record, Office record, Outpatient record, Prior outpatient labs, Prior outpatient radiology, Primary care record and Outside ED record <REED Thomas - Last Filed: 06/09/22 18:33> I reviewed all the patient's labs/imaging and prior visit and reports in our system. <REED Thomas Last Filed: 06/09/22 18:33> Prescription Management I considered prescription management with: Pain Medication (Oxycodone, indomethacin and prednisone will be given for her gout) <REDE Thomas Last Filed: 06/09/22 18:33> Chronic Conditions Patient?s care impacted by: Diabetes and Hypertension <REED Thomas - Last Filed: 06/09/22 18:33> Discharge Plan Discharge Clinical Impression: Acute gout of left foot, Bone spur of left foot <REED Rouse - Last Filed: 06/09/22 15:26> Patient Disposition: Home, Self-Care <REED Rouse - Last Filed: 06/09/22 15:26> Instructions: Low Purine Diet (ED), Gout (ED) <REED Rouse - Last Filed: 06/09/22 15:26> Prescriptions: New indomethacin 50 mg capsule 50 mg PO Q8H 5 Days Qty: 15 1RF Rx Instructions: administer with food or milk prednisone 20 mg tablet 40 mg PO DAILY 5 Days Qty: 10 0RF oxycodone 5 mg tablet 5 mg PO Q6H PRN (Reason: pain) Qty: 14 0RF Rx Instructions: Partial Fill upon patient request. No Action (DME) blood-glucose meter [OneTouch Verio Flex Start] Kit See Rx Instructions .Route Qty: 1 0RF Rx Instructions: As directed 3x/day (DME) OneTouch Verio test strips Strip See Rx Instructions .Route Qty: 100 11RF Rx Instructions: As directed to test blood sugar 3 times a day (DME) pen needle, diabetic [BD Ultra-Fine Sulma Pen Needle] 32 gauge x 5/32 needle See Rx Instructions .ROUTE .MEDSUPPLY Qty: 100 11RF Rx Instructions: As directed two times a day dulaglutide 1.5 mg/0.5 mL pen injector 1.5 mg subcut QWEEK Qty: 2 6RF Tresiba FlexTouch U-200 200 unit/mL (3 mL) insulin pen 46 unit subcut DAILY Qty: 9 5RF (DME) lancets [OneTouch Delica Lancets] 33 gauge misc See Rx Instructions .ROUTE .MEDSUPPLY Qty: 100 11RF Rx Instructions: Three times a day atorvastatin 10 mg tablet 10 mg PO QPM 30 Days Qty: 30 5RF insulin aspart U-100 [Novolog FlexPen U-100 Insulin] 100 unit/mL (3 mL) insulin pen 8 - 10 unit subcut .COMPLEX 28 Days Qty: 15 1RF Rx Instructions: 8 - 10 units subcut before dinner; gabapentin 300 mg capsule 300 mg PO BEDTIME latanoprost 0.005 % drops 1 drp ophthalmic (eye) BEDTIME hydrochlorothiazide 25 mg tablet 25 mg PO DAILY amlodipine 5 mg tablet 5 mg PO DAILY levothyroxine 112 mcg tablet 112 mcg PO DAILY ibuprofen 600 mg tablet 600 mg PO Q6H PRN (Reason: pain) metformin 1,000 mg tablet 1,000 mg PO DAILY <REED Rouse - Last Filed: 06/09/22 15:26> Referrals: Physician,Unknown J [Primary Care Provider] - 2 days (Follow-up with your PCP as needed) <REED Rouse - Last Filed: 06/09/22 15:26> Print Language: Khmer <REED Rouse - Last Filed: 06/09/22 15:26>
[2022-06-09 15:25] VITALS: BP 145/69; PULSE 68; RESP 16; TEMP 36.3; O2SAT 98
[2022-06-09] MEDS: NaPROXEN 500 MG TABLET PO (17:28)
[2022-06-09 17:32] LABS: MANUAL DIFF FLAG NO
[2022-06-09 17:34] LABS: Basophils Absolute Auto 0.1 X10*3/uL (0.0-0.2); Basophils Percent Auto 0.6 % (0-2); Eosinophils Absolute Auto 0.3 X10*3/uL (0.0-0.4); Eosinophils Percent Auto 3.3 % (0-4); Hematocrit 39.5 % (37.0-47.0); Imm Gran Abs Auto 0.03 X10*3/uL (0.00-0.03); Imm Gran Pct Auto 0.3 % (0.0-0.4); Lymphocytes Absolute Auto 2.1 X10*3/uL (1.2-4.9); Lymphocytes Percent Auto 21.7 % (20-40); Mean Corpuscular HGB Conc 32.9 g/dl (31.0-35.0); Mean Corpuscular Hemoglobin 28.9 pg (27.0-33.0); Mean Corpuscular Volume 87.8 fL (80.0-98.0); Mean Platelet Volume 10.4 fL (9.4-12.3); Monocytes Absolute Auto 0.6 X10*3/uL (0.1-1.2); Monocytes Percent Auto 5.8 % (2-11); Neutrophils Absolute Auto 6.7 x10*3/uL (2.0-8.3); Neutrophils Percent Auto 68.3 % (45-73); Platelet Count 315 X10*3/uL (160-400); Red Cell Distribution Width 12.8 % (11.0-16.0); White Blood Count 9.8 X10*3/uL (4.8-10.8)
[2022-06-09 17:49] LABS: Alanine Aminotransferase 16 U/L (0-31); Albumin Level 4.1 g/dL (3.5-5.0); Alkaline Phosphatase 157 U/L (39-117); Anion Gap 14 (12-20); Aspartate Amino Transferase 17 U/L (5-31); Bilirubin Total 0.4 mg/dL (0.0-1.0); Blood Urea Nitrogen 19 mg/dL (9-16); Calcium 9.3 mg/dL (8.4-10.2); Carbon Dioxide 32 mmol/L (22-29); Chloride 102 mmol/L (96-108); Creatinine Clr Calc Pharmacy 60.2; Estimated Glomerular Filt Rate 48; Glucose Random 146 mg/dL (60-115); Magnesium 1.6 mg/dL (1.6-2.6); Potassium 3.6 mmol/L (3.3-5.1); Sodium 144 mmol/L (135-145); Total Protein 7.9 g/dL (6.5-8.0); Uric Acid 6.7 mg/dL (2.4-5.7)
[2022-06-09 17:55] LABS: B Type Natriuretic Peptide 16 pg/mL (<100)
--- NOTE | 2022-06-09 18:47 | PC.NURSE ---
PT WAS ASSESSED BY PROVIDER IN [facility] AND DISCHARGED.
== END 2022-06-09 18:25 | disposition home or self-care (01) ==
PROVIDERS: Physician Assistant Medical; Emergency Provider Emergency Medicine
DX: M10.072 Idiopathic gout, left ankle and foot (principal); M77.32 Calcaneal spur, left foot; R60.0 Localized edema; R06.02 Shortness of breath; Z79.899 Other long term (current) drug therapy
CPT/HCPCS: 36415; 73630; 80053; 83735; 83880; 84550; 85025; 93971; 99282; 99284

== ENCOUNTER 2023-04-18 04:45 | Emergency (ER) | payer MEDICARE, MEDICAID, SELFPAY ==
[2023-04-18 05:03] VITALS: BP 148/61; PULSE 66; RESP 18; TEMP 36.4; O2SAT 100; BMI 42.8
--- NOTE | 2023-04-18 05:32 | PC.NURSE ---
pt from home reporting onset of right sided shoulder pain radiating into the neck for 2 days. pt reports hx of shoulder surgery due to a rotator cuff injury. pt unable to move arm up without severe pain. provider at bedside discussing pt care.
--- NOTE | 2023-04-18 05:40 | PC.NURSE ---
pt medicated per jun for 10/10 right shoulder pain.
--- NOTE | 2023-04-18 05:47 | PC.NURSE ---
pt walked to xray at this time, pt ambulated with steady gait.
[2023-04-18 06:14] VITALS: BP 137/62; PULSE 94; RESP 16; TEMP 36.9; O2SAT 94
--- NOTE | 2023-04-18 06:29 | ED.EXTPRO ---
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 Patient has history of right shoulder surgery many years ago, patient declined any trauma to the right shoulder, no fall, no heavy lifting. Related Data Home Medications Medication Instructions Recorded Confirmed amlodipine 5 mg tablet 5 mg PO DAILY 03/20/20 07/07/21 hydrochlorothiazide 25 mg tablet 25 mg PO DAILY 03/20/20 07/07/21 ibuprofen 600 mg tablet 600 mg PO Q6H PRN pain 03/20/20 07/07/21 levothyroxine 112 mcg tablet 112 mcg PO DAILY 03/20/20 07/07/21 metformin 1,000 mg tablet 1,000 mg PO DAILY 03/20/20 07/07/21 gabapentin 300 mg capsule 300 mg PO BEDTIME 07/07/21 07/07/21 latanoprost 0.005 % eye drops 1 drp ophthalmic (eye) BEDTIME 07/07/21 07/07/21 Previous Rx's Medication Instructions Recorded blood sugar diagnostic (SpotisticTouch #100 ea 02/14/21 Verio test strips) blood-glucose meter (SpotisticTouch #1 ea 02/14/21 Verio Flex Start kit) pen needle, diabetic 32 gauge x #100 ea 05/22/2132 (BD Ultra-Fine Sulma Pen Needle) dulaglutide 1.5 mg/0.5 mL 1.5 mg (0.5 mL) subcut QWEEK #2 mL 08/15/21 subcutaneous pen injector insulin degludec 200 unit/mL (3 46 unit (0.23 mL) subcut DAILY #9 08/20/21 mL) subcutaneous pen (Tresiba mL FlexTouch U-200 insulin) lancets 33 gauge (OneTouch Delica #100 ea 10/17/21 Lancets) atorvastatin 10 mg tablet 10 mg PO QPM 30 days #30 tabs 11/10/21 insulin aspart U-100 100 unit/mL 8 - 10 unit (0.08 - 0.1 mL) subcut 02/26/22 (3 mL) subcutaneous pen (Novolog .COMPLEX 28 days #15 mL FlexPen U-100 Insulin aspart) indomethacin 50 mg capsule 50 mg PO Q8H gout 5 days #15 caps 06/09/22 oxycodone 5 mg tablet 5 mg PO Q6H PRN pain #14 tabs 06/09/22 prednisone 20 mg tablet 40 mg (2 x 20 mg) PO DAILY 06/09/22 inflammation 5 days #10 tabs ibuprofen 600 mg tablet 600 mg PO Q8H PRN pain #14 tabs 04/18/23 oxycodone 5 mg tablet 5 mg PO Q8H PRN pain #7 tabs 04/18/23 Allergies Allergy/AdvReac Type Severity Reaction Status Date / Time lisinopril [LISINOPRIL] Allergy Intermediate SWELLING Verified 04/18/23 05:06 acetaminophen [From FIORICET] Allergy Unknown RASH Verified 04/18/23 05:06 butalbital [From FIORICET] Allergy Unknown RASH Verified 04/18/23 05:06 caffeine [From FIORICET] Allergy Unknown RASH Verified 04/18/23 05:06 insulin glargine Allergy Unknown SWEATING Verified 04/18/23 05:06 [From LANTUS U-100 INSULIN] FEET Review of Systems Review of Systems: All other systems are reviewed and are negative Constitutional: Reports as per HPI and Reports no additional constitutional complaints Eyes: Reports as per HPI and Reports no additional eye complaints Reports system reviewed and no additional complaints, except as documented Cardiovascular: Reports as per HPI and Reports no additional cardiovascular complaints Respiratory: Reports as per HPI and Reports no additional respiratory complaints Gastrointestinal: Reports as per HPI and Reports no additional gastrointestinal complaints Genitourinary: Reports no additional female genitourinary complaints Musculoskeletal: Reports no additional musculoskeletal complaints Skin/Breast: Reports system reviewed and no additional complaints, except as docu Psychiatric: Reports no additional psychiatric complaints Endocrine: Reports no additional endocrine complaints Hematologic/Lymphatic: Reports no additional hematologic/lymphatic complaints Allergic/Immunologic: Reports no additional allergic/immunologic complaints Reports system reviewed and no additional complaints, except as documented and Reports Abnormal speech present PMFSH Past Medical History Onset Date is defined in the Problem List Problems that require an onset date and time if occurred within 24 hrs of arrival to the ED Aortic Dissection and Rupture; Neurologic impairment; Cardiopulmonary Arrest; Endotracheal Intubation; Insertion or Replacement of Mechanical Circulatory Assist Device Medical History Pain in left foot Hypothyroidism Controlled diabetes mellitus without complication, with long-term current use of insulin 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 Essential hypertension Obesity due to excess calories BMI 40.0-44.9, adult Hyperlipidemia LDL goal <100 Surgical History Hx of cholecystectomy Hx of appendectomy Family History Family History Father Diabetes CVD (cardiovascular disease) Mother CVD (cardiovascular disease) Social History Social History Household Members: None Patient Tobacco Use Status: Never used Tobacco Smoked in Last 30 Days: No Use of substances other than those prescribed or required for medical reasons: No Advance Directives: No Advance Directives Information Provided: No Physical Exam Vital Signs: Vital Signs: Last Vital Signs Temp 98.5 F 04/18/23 06:14 Pulse 94 04/18/23 06:14 Resp 16 04/18/23 06:14 BP 137/62 04/18/23 06:14 Pulse Ox 94 04/18/23 06:14 O2 Del Method Room Air 04/18/23 06:14 BMI result Body Mass Index 42.8 Vital signs have been reviewed and appear to be correct. Blood pressure elevated. Heart rate normal. Respiratory rate normal. Temperature normal. Oxygen saturation normal. Appearance: Alert. Oriented X3. No acute distress. Head: Normal external exam. Normocephalic. Atraumatic. No Stephens signs noted. No raccoon eyes noted Eyes: PERRLA. EOMI. Conjunctiva and sclera normal. Eyelids normal. ENT: TM's Normal. Pharynx normal. Uvula midline. Moist mucous membranes. No trismus noted. No drooling noted. No muffled voice noted. Neck: Normal inspection. Neck supple. FROM. No adenopathy. Thyroid Normal. No meningeal signs. No neck mass noted. CVS: Normal heart rate and rhythm. Heart sound normal. No murmurs noted. Pulses normal throughout. Respiratory: No respiratory distress. Painless inspiration. Breath sounds normal. No wheezes/rales/rhonchi noted. Chest nontender. No accessory muscle usage noted or decreased air movement noted. Abdomen: Soft and nontender. Bowel sounds normal in all 4 quadrants. No distention noted. No organomegaly noted. No visible injury noted. Back: No CVA tenderness. Full range of motion noted. Skin: Skin warm and dry. Normal skin color. Normal skin turgor. No rashes/lesions/lacerations noted. Extremities: Right shoulder held in adduction position with very painful abduction, tenderness over humeral greater tuberosity. Neuro: Oriented X 3. Cranial nerve exam: II-XII are grossly intact No motor deficit. No sensory deficit. Reflexes normal. Course Reevaluation(s) Reevaluation #1: physical exam is consistent with rotator cuff tendinitis. Will discharge with oxycodone/ibuprofen p.r.n. and follow-up with ortho. Time: 06:35 Medications Administered Discontinued Medications Generic Name Dose Route Start Last Admin Trade Name Freq PRN Reason Stop Dose Admin Ibuprofen 600 mg 04/18/23 05:22 04/18/23 05:38 Ibuprofen 600 Mg Tablet PO 04/18/23 05:23 600 mg ONCE ONE Administration Oxycodone HCl 5 mg 04/18/23 05:22 04/18/23 05:39 Oxycodone Hcl Immed Release 5 Mg Tablet PO 04/18/23 05:23 5 mg ONCE ONE Administration Medical Decision Making Differential Diagnosis Differential Diagnoses: The differential diagnosis associated with the presentation includes ( Shoulder fracture, shoulder dislocation, rotator cuff tendinitis, arthritis, cervical radiculopathy.) Admission/Observation Consideration of admission/observation: Escalation of care including admission/observation considered Independent Interpretation I performed an independent interpretation of an: Plain X-Ray ( Right shoulder:7 mm calcification along the lateral humeral head which may represent calcific tendinitis. ) Radiology Impression Discussion of test interpretation with radiology: I have reviewed the radiologist's reading. Discharge Plan Discharge Clinical Impression: Right rotator cuff tendinitis Patient Disposition: Home, Self-Care Instructions: Rotator Cuff Tendinitis (ED) Prescriptions: New oxycodone 5 mg tablet 5 mg PO Q8H PRN (Reason: pain) Qty: 7 0RF Rx Instructions: Partial Fill upon patient request. ibuprofen 600 mg tablet 600 mg PO Q8H PRN (Reason: pain) Qty: 14 0RF No Action (DME) blood-glucose meter [OneTouch Verio Flex Start] Kit See Rx Instructions .Route Qty: 1 0RF Rx Instructions: As directed 3x/day (DME) OneTouch Verio test strips Strip See Rx Instructions .Route Qty: 100 11RF Rx Instructions: As directed to test blood sugar 3 times a day (DME) pen needle, diabetic [BD Ultra-Fine Sulma Pen Needle] 32 gauge x 5/32 needle See Rx Instructions .ROUTE .MEDSUPPLY Qty: 100 11RF Rx Instructions: As directed two times a day dulaglutide 1.5 mg/0.5 mL pen injector 1.5 mg subcut QWEEK Qty: 2 6RF Tresiba FlexTouch U-200 200 unit/mL (3 mL) insulin pen 46 unit subcut DAILY Qty: 9 5RF (DME) lancets [SpotisticTouch Delica Lancets] 33 gauge misc See Rx Instructions .ROUTE .MEDSUPPLY Qty: 100 11RF Rx Instructions: Three times a day atorvastatin 10 mg tablet 10 mg PO QPM 30 Days Qty: 30 5RF insulin aspart U-100 [Novolog FlexPen U-100 Insulin] 100 unit/mL (3 mL) insulin pen 8 - 10 unit subcut .COMPLEX 28 Days Qty: 15 1RF Rx Instructions: 8 - 10 units subcut before dinner; indomethacin 50 mg capsule 50 mg PO Q8H 5 Days Qty: 15 1RF Rx Instructions: administer with food or milk prednisone 20 mg tablet 40 mg PO DAILY 5 Days Qty: 10 0RF oxycodone 5 mg tablet 5 mg PO Q6H PRN (Reason: pain) Qty: 14 0RF Rx Instructions: Partial Fill upon patient request. gabapentin 300 mg capsule 300 mg PO BEDTIME latanoprost 0.005 % drops 1 drp ophthalmic (eye) BEDTIME hydrochlorothiazide 25 mg tablet 25 mg PO DAILY amlodipine 5 mg tablet 5 mg PO DAILY levothyroxine 112 mcg tablet 112 mcg PO DAILY ibuprofen 600 mg tablet 600 mg PO Q6H PRN (Reason: pain) metformin 1,000 mg tablet 1,000 mg PO DAILY Referrals: Ronnie Keller MD [Physician] -
== END 2023-04-18 07:01 | disposition home or self-care (01) ==
PROVIDERS: Emergency Provider Emergency Medicine
DX: M75.101 Unspecified rotator cuff tear or rupture of right shoulder, not specified as traumatic (principal); M25.511 Pain in right shoulder
CPT/HCPCS: 73030; 99283; 99284

== ENCOUNTER 2023-04-22 14:39 | Outpatient (AMB) | payer MEDICARE, MEDICAID, SELFPAY ==
--- NOTE | 2023-04-22 14:53 | A.OFFVIS_ITS ---
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 She describes her pain as sharp in nature. The patient did undergo right shoulder surgery approximately 10 years ago. She got fairly good relief from that surgery initially. She did re-injure her shoulder approximately 1 year ago. Since that time her pain and weakness have gotten progressively worse in spite of continued non operative treatments. She has had injections in the past which gave her minimal relief. She has also done physical therapy exercises which aggravated her pain. The patient reports d ifficulty lifting her right hand to shoulder height. Allergies lisinopril [LISINOPRIL] Allergy (Intermediate, Verified 04/22/23 14:58) SWELLING acetaminophen [From FIORICET] Allergy (Unknown, Verified 04/22/23 14:58) RASH butalbital [From FIORICET] Allergy (Unknown, Verified 04/22/23 14:58) RASH caffeine [From FIORICET] Allergy (Unknown, Verified 04/22/23 14:58) RASH insulin glargine [From LANTUS U-100 INSULIN] Allergy (Unknown, Verified 04/22/23 14:58) SWEATING FEET PFSH Medical History (Updated 04/22/23 @ 15:19 by Julian Ty MD) Pain in left foot Hypothyroidism Controlled diabetes mellitus without complication, with long-term current use of insulin retirement current use of insulin Essential hypertension Obesity due to excess calories BMI 40.0-44.9, adult Hyperlipidemia LDL goal <100 Surgical History (Updated 04/22/23 @ 14:59 by Lindsey Bueno CMA) History of shoulder surgery (~2011) Hx of cholecystectomy Hx of appendectomy Family History Father Diabetes CVD (cardiovascular disease) Mother CVD (cardiovascular disease) Social History Household Members: None Patient Tobacco Use Status: Never used Tobacco Physical Exam Vital Signs: BMI result Body Mass Index 42.8 Const Other: Well-nourished well-developed very friendly female awake alert and oriented x3 in no acute distress Extrem Other: Bilateral upper extremity examination shows good capillary refill, no skin lesio ns noted, normal sensation light touch Right shoulder examination shows decreased active and passive range of motion when compared to her left shoulder, 4/5 strength with supraspinatus testing, positive impingement signs, tenderness over her acromioclavicular joint, no instability Results Reviewed Results Reviewed: X-rays of the patient's right shoulder show severe acromioclavicular joint narrowing, a type 2 acromion, no acute bony abnormalities Assessment & Plan Assessment & Plan (1) Right shoulder pain: Code(s): M25.511 - Pain in right shoulder Plan Ms. Parmjit Mcfarland presents with right shoulder pain and weakness due to impingement syndrome, acromioclavicular joint arthritis and possible full- thickness rotator cuff tearing. Thus, I will send the patient for an MRI of her right shoulder for further evaluation. I will see her back once the MRI is completed to discuss the findings and treatment options. She will continue with her range of motion exercises in the meantime to prevent stiffness. Feel free to call me at any time should questions regarding her orthopedic management arise. I spent 22 minutes in reviewing the patient's records and imaging studies, s eeing the patient and documenting in the medical record. Orders: Orders MR shoulder RT wo con Today M25.511 - Pain in right shoulder Coding Level of Care Code New Pt Level 2 (95811) Diagnoses Right shoulder pain M25.511
[2023-04-22 15:03] VITALS: BMI 42.8
== END 2023-04-22 15:17 | disposition home or self-care (01) ==
PROVIDERS: Visit Provider Orthopaedic Surgery
DX: M25.511 Pain in right shoulder (principal)
CPT/HCPCS: 99202

== ENCOUNTER → 2023-04-22 14:39 | Outpatient (BNVA) | payer MEDICARE, MEDICAID, SELFPAY | PROVIDERS: Visit Provider Orthopaedic Surgery | DX: M25.511 Pain in right shoulder (principal) | CPT/HCPCS: 99202 ==

== ENCOUNTER 2023-05-12 18:50 | Outpatient (REF) | payer MEDICARE, MEDICAID, SELFPAY ==
--- NOTE | ~2023-05-12 | MR_ITS ---
EXAMINATION: MR SHOULDER WITHOUT CONTRAST, RIGHT CLINICAL INFORMATION: Right shoulder pain. Limited range of motion. Weakness. Rotator cuff tendon repair in 2012. COMPARISON: Right shoulder radiographs dated 04/18/2023. TECHNIQUE: MRI of the shoulder without contrast was performed on a high-field scanner. FINDINGS: ROTATOR CUFF: Mild supraspinatus tendinosis with anterior intrasubstance partial tearing measuring approximately 0.8 x 0.9 cm (AP x ML). Tearing extends into the anterior leading edge of the infraspinatus tendon. More moderate infraspinatus tendinosis with lobulated low T1/T2 signal adjacent to the insertion, which likely corresponds to the previously seen calcific tendinitis. Moderate subscapularis tendinosis with articular surface and intrasubstance partial tearing measuring up to 2.6 cm in ML dimension. No definite full-thickness rotator cuff tendon tear. Mild edema within the infraspinatus muscle, consistent with a mild strain. No muscle atrophy or fatty infiltration. BICEPS: Intact. CORACOACROMIAL ARCH: The undersurface of the acromion is minimally curved with small subacromial spurs. Moderate acromioclavicular osteoarthritis and small joint effusion. LABRUM/CAPSULE: Linear fluid signal within the undersurface of the superior, posterosuperior and anterior labrum, consistent nondisplaced tearing. Intact inferior joint capsule. GLENOHUMERAL JOINT/MARROW: Intact articular cartilage. Mild degenerative cystic change at the greater tuberosity. Moderate joint effusion with mild synovitis. MR/MR shoulder RT wo con IMPRESSION: 1. Mild supraspinatus tendinosis with anterior intrasubstance partial tearing extending into the anterior leading edge of the infraspinatus tendon. Moderate infraspinatus tendinosis with lobulated low T1/T2 signal adjacent to the insertion, which likely corresponds to the previously seen calcific tendinitis. Moderate subscapularis tendinosis with articular surface and intrasubstance partial tearing measuring 2.6 cm in ML dimension. Mild infraspinatus muscle strain. 2. Moderate acromioclavicular osteoarthritis and small joint effusion with small subacromial spurs. 3. Nondisplaced undersurface tearing of the superior, posterosuperior, and anterior labrum. 4. Moderate glenohumeral joint effusion with mild synovitis.
== END 2023-05-12 18:51 | disposition home or self-care (01) ==
LOC: HO.MRI 18:50
PROVIDERS: PCP Internal Medicine; Visit Provider Orthopaedic Surgery
DX: M25.511 Pain in right shoulder (principal)
CPT/HCPCS: 73221

== ENCOUNTER 2023-05-25 12:41 | Outpatient (AMB) | payer MEDICARE, MEDICAID, SELFPAY ==
[2023-05-25 12:44] VITALS: BMI 42.8
--- NOTE | 2023-05-25 12:44 | A.OFFVIS_ITS ---
Intake Vital Signs 05/25/23 12:44 Height 5 ft 2 in Weight 234 lb BMI 42.8 Intake Visit Reasons: ov- MRI Shoulder RT review Intake Note: Tasha is a 62 year old right handed female who presents with Right shoulder pain and stiffness. She describes her pain as sharp in nature. The patient did undergo right shoulder surgery approximately 10 years ago. She got fairly good relief from that surgery initially. She did re-injure her shoulder approximately 1 year ago. Since that time her pain and stiffness have gotten progressively worse in spite of continued non operative treatments. She has had injections in the past which gave her minimal relief. She has also done physical therapy exercises which aggravated her pain. The patient has not been able to lift her right hand to shoulder height for several months. She has taken Tylenol and anti-inflammatory medicines which gave her minimal relief. Allergies lisinopril [LISINOPRIL] Allergy (Intermediate, Verified 05/25/23 12:48) SWELLING acetaminophen [From FIORICET] Allergy (Unknown, Verified 05/25/23 12:48) RASH butalbital [From FIORICET] Allergy (Unknown, Verified 05/25/23 12:48) RASH caffeine [From FIORICET] Allergy (Unknown, Verified 05/25/23 12:48) RASH insulin glargine [From LANTUS U-100 INSULIN] Allergy (Unknown, Verified 05/25/23 12:48) SWEATING FEET Medication List - Last Reconciled 05/25/23 by Julian Ty MD amlodipine 5 mg PO DAILY atorvastatin 10 mg PO QPM 30 days blood sugar diagnostic (Cervilenzuch Verio test strips) As directed to test blood sugar 3 times a day blood-glucose meter (OneTouch Verio Flex Start kit) As directed 3x/day dulaglutide 1.5 mg (0.5 mL) subcut QWEEK gabapentin 300 mg PO BEDTIME hydrochlorothiazide 25 mg PO DAILY ibuprofen 600 mg PO Q8H PRN ibuprofen 600 mg PO Q6H PRN indomethacin 50 mg PO Q8H 5 days insulin aspart U-100 (Novolog FlexPen U-100 Insulin aspart) 8 - 10 units subcut before dinner; 28 days insulin degludec (Tresiba FlexTouch U-200 insulin) 46 units (0.23 mL) subcut DAILY lancets (Cervilenzuch Delica Lancets) Three times a day latanoprost 0.005% 1 drp ophthalmic (eye) BEDTIME levothyroxine 112 mcg PO DAILY metformin 1,000 mg PO DAILY oxycodone 5 mg PO Q8H PRN 3 days pen needle, diabetic (BD Ultra-Fine Sulma Pen Needle) As directed two times a day prednisone 40 mg (2 x 20 mg) PO DAILY 5 days PFSH Medical History Pain in left foot Hypothyroidism Controlled diabetes mellitus without complication, with long-term current use of insulin jail current use of insulin Essential hypertension Obesity due to excess calories BMI 40.0-44.9, adult Hyperlipidemia LDL goal <100 Surgical History History of shoulder surgery (~2011) Hx of cholecystectomy Hx of appendectomy Family History Father Diabetes CVD (cardiovascular disease) Mother CVD (cardiovascular disease) Social History Household Members: None Patient Tobacco Use Status: Never used Tobacco Physical Exam Vital Signs: BMI result Body Mass Index 42.8 Const Other: Well-nourished well-developed very friendly female awake alert and oriented x3 in no acute distress Lungs - clear to auscultation bilaterally with symmetric expansion Cardiovascular exam - regular rate and rhythm Abdominal exam - soft nontender nondistended Extrem Other: Bilateral upper extremity examination shows good capillary refill, no skin lesions noted, normal sensation light touch Right shoulder examination shows decreased active and passive range motion when compared to her left shoulder, 5 out of 5 strength with supraspinatus testing, positive impingement signs, tenderness over her acromioclavicular joint, no instability Results Reviewed Results Reviewed: MRI of the patient's right shoulder show severe acromioclavicular joint narrowing, a type 2 acromion, signal change within the supraspinatus tendon most likely due to adhesive capsulitis Assessment & Plan Assessment & Plan (1) Impingement of right shoulder: Code(s): M25.811 - Other specified joint disorders, right shoulder Plan Ms. Parmjit Mcfarland presents with progressively worsening right shoulder pain and stiffness due to impingement syndrome, acromioclavicular joint arthritis and adhesive capsulitis. I had a lengthy discussion with the patient regarding the treatment options. At this point she has failed continued non operative treatments. The risks and benefits of right shoulder surgery were discussed at length with the patient. The patient wishes to proceed with surgery. Surgery will most likely involve right shoulder diagnostic arthroscopy with distal clavicle excision, acromioplasty, capsular release and manipulation under anesthesia. The patient will be scheduled for our next available date. She will be given a prescription for pain medicine at the time of her surgery. She. Feel free to call me at any time should questions regarding her orthopedic management arise. I spent 22 minutes in reviewing the patient's records and imaging studies, seeing the patient and documenting in the medical record. Coding Level of Care Code Est Pt Level 2 (45642) Diagnoses Impingement of right shoulder M25.811
== END 2023-05-25 13:03 | disposition home or self-care (01) ==
LOC: HO.HOS 12:41
PROVIDERS: PCP Internal Medicine; Visit Provider Orthopaedic Surgery
DX: M75.41 Impingement syndrome of right shoulder (principal); M19.011 Primary osteoarthritis, right shoulder; M25.811 Other specified joint disorders, right shoulder
CPT/HCPCS: 99213

== ENCOUNTER → 2023-05-25 12:41 | Outpatient (BNVA) | payer MEDICARE, MEDICAID, SELFPAY | PROVIDERS: PCP Internal Medicine; Visit Provider Orthopaedic Surgery | DX: M25.811 Other specified joint disorders, right shoulder (principal) | CPT/HCPCS: 99212 ==

== ENCOUNTER → 2023-06-24 08:54 | Outpatient (BNVA) | payer MEDICARE, MEDICAID, SELFPAY | PROVIDERS: PCP Internal Medicine; Visit Provider Orthopaedic Surgery ==

== ENCOUNTER 2023-07-02 09:03 | Day surgery (SDC) | payer MEDICARE, MEDICAID, SELFPAY ==
[2023-06-30 08:10] VITALS: BMI 42.8
--- NOTE | 2023-06-30 12:18 | P.CONAN_ITS ---
Documented by User: Glory Byrnes NP 06/30/23 12:21 HPI - Anesthesia Eval Consult details Narrative: 63yo F for Right Shoulder Arthroscopy, distal clavicle excision, acromioplasty,manipulation Medically optimized ? 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 (Acute) Essential hypertension (Acute) Obesity due to excess calories (Acute) BMI 40.0-44.9, adult (Acute) Hyperlipidemia LDL goal <100 (Acute) Pain in left foot (Acute) Past Medical History Medical History Insomnia Glaucoma Thyroid disease Diabetes Anxiety Depression Spondylosis of lumbar region without myelopathy or radiculopathy Venous stasis Lichen simplex chronicus Lichen sclerosus Diabetic retinopathy of both eyes Sleep apnea Pain in left foot Hypothyroidism Controlled diabetes mellitus without complication, with long-term current use of insulin 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 Essential hypertension Obesity due to excess calories BMI 40.0-44.9, adult Hyperlipidemia LDL goal <100 Family History Family History Father Diabetes CVD (cardiovascular disease) Mother CVD (cardiovascular disease) Surgical History Surgical History History of shoulder surgery (~2011) Hx of cholecystectomy Hx of appendectomy Social History Social History Household Members: None Patient Tobacco Use Status: Never used Tobacco Advance Directives: No Advance Directives Information Provided: Yes 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, 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 Meds Allergies Allergy/AdvReac Type Severity Reaction Status Date / Time lisinopril [LISINOPRIL] Allergy Intermediate SWELLING Verified 06/24/23 09:00 acetaminophen [From FIORICET] Allergy Unknown RASH Verified 06/24/23 09:00 butalbital [From FIORICET] Allergy Unknown RASH Verified 06/24/23 09:00 caffeine [From FIORICET] Allergy Unknown RASH Verified 06/24/23 09:00 insulin glargine Allergy Unknown SWEATING Verified 06/24/23 09:00 [From LANTUS U-100 INSULIN] FEET Active Medications: Current Medications Cefazolin Sodium/Dextrose (Ancef) 2 gm in 50 mls @ 100 mls/hr IV PREOP ONE Stop: 07/02/23 06:04 Home Medications Medication Instructions Recorded Confirmed Last Taken Type amlodipine 5 mg tablet 5 mg PO DAILY 03/20/20 06/24/23 Unknown History hydrochlorothiazide 25 mg tablet 25 mg PO DAILY 03/20/20 06/24/23 Unknown History ibuprofen 600 mg tablet 600 mg PO Q6H PRN pain 03/20/20 06/24/23 Unknown History levothyroxine 112 mcg tablet 112 mcg PO DAILY 03/20/20 06/24/23 Unknown History metformin 1,000 mg tablet 1,000 mg PO DAILY 03/20/20 06/24/23 Unknown History gabapentin 300 mg capsule 300 mg PO BEDTIME 07/07/21 06/24/23 Unknown History latanoprost 0.005 % eye drops 1 drp ophthalmic (eye) BEDTIME 07/07/21 06/24/23 Unknown History Exam Height,Weight and Vital Signs: Height 5 ft 2 in Weight 106.141 kg Narrative Narrative: EKG 06/2023 NSR Assessment and Plan Assessment Anesthesia Assessment: Chart Reviewed Documented by User: Oxana Foster MD 07/02/23 10:18 HPI - Anesthesia Eval Anesthesia Pre-Procedure Meds If Yes to any meds - educate patient: Pt education - increased risk of aspiration and Pt education - possibility of cancelled proc at provider's discretion PMFSH Past Medical History Medical History Insomnia Glaucoma Thyroid disease Diabetes Anxiety Depression Spondylosis of lumbar region without myelopathy or radiculopathy Venous stasis Lichen simplex chronicus Lichen sclerosus Diabetic retinopathy of both eyes Sleep apnea Pain in left foot Hypothyroidism Controlled diabetes mellitus without complication, with long-term current use of insulin 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 Essential hypertension Obesity due to excess calories BMI 40.0-44.9, adult Hyperlipidemia LDL goal <100 Family History Family History Father Diabetes CVD (cardiovascular disease) Mother CVD (cardiovascular disease) Family history of problems with anesthesia: No Surgical History Surgical History History of shoulder surgery (~2011) Hx of cholecystectomy Hx of appendectomy History of Problems with Anesthesia: No Social History Social History Household Members: None Patient Tobacco Use Status: Never used Tobacco Advance Directives: No Advance Directives Information Provided: Yes 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, 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 Meds Allergies Allergy/AdvReac Type Severity Reaction Status Date / Time lisinopril [LISINOPRIL] Allergy Intermediate SWELLING Verified 06/24/23 09:00 acetaminophen [From FIORICET] Allergy Unknown RASH Verified 06/24/23 09:00 butalbital [From FIORICET] Allergy Unknown RASH Verified 06/24/23 09:00 caffeine [From FIORICET] Allergy Unknown RASH Verified 06/24/23 09:00 insulin glargine Allergy Unknown SWEATING Verified 06/24/23 09:00 [From LANTUS U-100 INSULIN] FEET Home Medications Medication Instructions Recorded Confirmed Last Taken Type amlodipine 5 mg tablet 5 mg PO DAILY 03/20/20 06/24/23 Unknown History hydrochlorothiazide 25 mg tablet 25 mg PO DAILY 03/20/20 06/24/23 Unknown History ibuprofen 600 mg tablet 600 mg PO Q6H PRN pain 03/20/20 06/24/23 Unknown History levothyroxine 112 mcg tablet 112 mcg PO DAILY 03/20/20 06/24/23 Unknown History metformin 1,000 mg tablet 1,000 mg PO DAILY 03/20/20 06/24/23 Unknown History gabapentin 300 mg capsule 300 mg PO BEDTIME 07/07/21 06/24/23 Unknown History latanoprost 0.005 % eye drops 1 drp ophthalmic (eye) BEDTIME 07/07/21 06/24/23 Unknown History Exam Airway Mallampati Class: III TM Dist: <=3cm Neck ROM: Limited Heart: rrr Lungs: cta Assessment and Plan Assessment Anesthesia Assessment: Anesthesia Plan Discussed Final Anesthetic Review Family History of Problems with Anesthesia: No History of Problems with Anesthesia: No NPO: Yes ASA Class: III Final Preanesthetic Review: No Changes in Pt Med Stat, Meds/Allgs Chart Reviewed, Consent Obtained/Reviewed and Anes Risks/Benef Reviewed Patient Risk: Intermediate Procedure Risk: Intermediate Anesthetic Plan Anesthetic Plan: GA and Regional Block Disposition: Standard PACU
[2023-07-02] VITALS (14 sets, daily range): BP systolic 106–143; BP diastolic 45–65; PULSE 66–77; RESP 13–18; TEMP 36.1–36.6; O2SAT 89–97
[2023-07-02 10:26] LABS: Glucose, Whole Blood 75 mg/dL (60-115)
--- NOTE | 2023-07-02 12:25 | P.BOP_ITS ---
Brief Operative Note Date of Service: 07/02/23 Pre-op diagnosis: Right shoulder impingement syndrome, right shoulder acromioclavicular joint arthritis, right shoulder adhesive capsulitis Post-op diagnosis: same Procedure: Right shoulder diagnostic arthroscopy with right shoulder arthroscopic distal clavicle excision, right shoulder arthroscopic acromioplasty, right shoulder arthroscopic capsular release, right shoulder manipulation under anesthesia Implants: None Surgeon: Julian Ty MD Anesthesia: GETA and regional Was an Farm Mortgage Agent used for this Procedure?: No Estimated blood loss (mL): 10 Pathology: none sent Condition: stable Disposition: PACU
--- NOTE | 2023-07-02 12:26 | P.OP_ITS ---
Operative Note Operative Note Date of Service: 07/02/23 Narrative: After the patient was identified as Tasha Mcfarland and her right shoulder was initialed by myself the patient was brought to the holding area where a right shoulder interscalene regional block was performed by the anesthesiologist in routine fashion. The patient was then brought to the operating room where general anesthesia was induced by the anesthesiologist in routine fashion. The patient was given 2 g of IV Ancef preoperatively for infection prophylaxis. Examination under anesthesia of the patient's right shoulder showed decreased passive range of motion when compared to the left shoulder. The patient's right shoulder had passive forward flexion to 70 degrees compared to 170 degrees, external rotation to 40 degrees compared to 60 degrees, and internal rotation to 50 degrees compared to 60 degrees. The patient was gently positioned in the beach chair position with all bony prominences well padded. The patient's right shoulder region and upper extremity were prepped and draped in sterile fashion. A formal time-out was completed. A #11 scalpel blade was used to make a posterior portal 2 cm inferior and 1 cm medial to the posterolateral corner of the acromion. Blunt trocar technique was used to enter the glenohumeral joint in routine fashion. An anterior portal was made just lateral to the coracoid process after proper positioning was confirmed using a spinal needle. Diagnostic arthroscopy showed minimal degenerative changes of the glenoid and humeral head articular surfaces. There was no evidence of rotator cuff tearing. There was no evidence of injury to the biceps tendon or its insertion onto the glenoid. There was inflammation of the anterior joint capsule consistent with adhesive capsulitis. The ArthroCare Wand was then used to perform an anterior capsular release between the inferior border of the biceps tendon and the superior border of the subscapularis tendon. The arthroscope was then placed from the posterior portal into the subacromial space. A lateral portal was made 2 fingerbreadths lateral to the anterior lateral corner of the acromion. The ArthroCare Wand was used to ablate soft tissues along the undersurface of the acromion as well as to excise the coracoacromial ligament. There was a sharp spur along the undersurface of the acromion which was removed using the hooded bur. The arthroscope was then placed into the lateral portal and the acrom ioplasty was completed with the bur in the posterior portal using the posterior aspect of the acromion as a cutting block. The ArthroCare Wand was then brought in through the anterior portal and was used to ablate soft tissues along the acromioclavicular joint and distal clavicle. The posterior and superior ligamentous structures were left intact. A distal clavicle excision of 8 mm was performed using the fluted bur. Any remaining bursal tissue was removed using the arthroscopic shaver. The subacromial space was irrigated and then drained. All arthroscopic instruments were removed. A gentle manipulation under anesthesia was then performed. Full passive range of motion was easily obtained. The 3 portals were closed with 3-0 nylon interrupted suture. The subacromial space was injected with Marcaine. Dry sterile dressing was placed over all incisions. The patient's right upper extremity was placed into a sling. The patient was awoken and extubated in the operating room. The patient was transferred to the recovery room in stable condition.
[2023-07-02] MEDS: cefTRIAXone sodium 1 GM in 0.9 % Sodium Chloride 50 ML IV (12:56)
== END 2023-07-02 17:00 | disposition home or self-care (01) ==
PROVIDERS: PCP Internal Medicine; Visit Provider Orthopaedic Surgery
PROC: (CPT 29805; principal; 2023-07-02 09:50)
DX: M75.41 Impingement syndrome of right shoulder (principal); M19.011 Primary osteoarthritis, right shoulder; M75.01 Adhesive capsulitis of right shoulder; M25.811 Other specified joint disorders, right shoulder; I10 Essential (primary) hypertension; E11.9 Type 2 diabetes mellitus without complications; E66.09 Other obesity due to excess calories; Z68.41 Body mass index [BMI] 40.0-44.9, adult; Z79.4 Long term (current) use of insulin; Z79.84 Long term (current) use of oral hypoglycemic drugs; Z79.85 Long-term (current) use of injectable non-insulin antidiabetic drugs; Z79.899 Other long term (current) drug therapy; Z88.8 Allergy status to other drugs, medicaments and biological substances; E87.5 Hyperkalemia
CPT/HCPCS: 29824; 29825; 29826; 82947; J0131; J0171; J0665; J0690; J0696; J2250; J2405; J2704; J2795; J3010

== ENCOUNTER → 2023-07-02 09:03 | Outpatient (BNV) | payer MEDICARE, MEDICAID, SELFPAY | PROVIDERS: PCP Internal Medicine; Visit Provider Orthopaedic Surgery | DX: M75.01 Adhesive capsulitis of right shoulder (principal); M19.011 Primary osteoarthritis, right shoulder; M75.41 Impingement syndrome of right shoulder | CPT/HCPCS: 29824; 29826 ==

== ENCOUNTER 2023-07-15 09:01 | Outpatient (AMB) | payer MEDICARE, MEDICAID, SELFPAY ==
--- NOTE | 2023-07-15 06:28 | MHC.OFFVIS ---
Intake Intake Visit Reasons: PO-Rt Shld 07/02/23 Intake Note: En 63 year old female presents today for a post operative right shoulder on 07/02/23 Patient reports she is doing well, states a little bit of pain that radiates into her neck. Organizational Research Consultant Required: Yes Organizational Research Consultant Name: Wilmer ID#[id number] Allergies lisinopril [LISINOPRIL] Allergy (Intermediate, Verified 07/15/23 09:20) SWELLING acetaminophen [From FIORICET] Allergy (Unknown, Verified 07/15/23 09:20) RASH butalbital [From FIORICET] Allergy (Unknown, Verified 07/15/23 09:20) RASH caffeine [From FIORICET] Allergy (Unknown, Verified 07/15/23 09:20) RASH insulin glargine [From LANTUS U-100 INSULIN] Allergy (Unknown, Verified 07/15/23 09:20) SWEATING FEET HPI PO-Rt Shld 07/02/23 HPI Details 63-year-old female who returns to the office today for post-op right shoulder , 07/02/[address] Ty. She continues to have mild pain which radiates into her neck however she is doing well otherwise. She has no other concerns today. 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 Essential hypertension Obesity due to excess calories BMI 40.0-44.9, adult Hyperlipidemia LDL goal <100 Surgical History History of shoulder surgery (~2011) Hx of cholecystectomy Hx of appendectomy Family History Father Diabetes CVD (cardiovascular disease) Mother CVD (cardiovascular disease) Social History Household Members: None Patient Tobacco Use Status: Never used Tobacco 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 Incision clean, dry and intact. No erythema or drainage. Forward flexion to 90 degrees, external rotation to 85 degrees. NVI. Results Reviewed Results Reviewed: Brief Operative Note Date of Service: 07/02/23 Pre-op diagnosis: Right shoulder impingement syndrome, right shoulder acromioclavicular joint arthritis, right shoulder adhesive capsulitis Post-op diagnosis: same Procedure: Right shoulder diagnostic arthroscopy with right shoulder arthroscopic distal clavicle excision, right shoulder arthroscopic acromioplasty, right shoulder arthroscopic capsular release, right shoulder manipulation under anesthesia Implants: None Surgeon: Julian Ty MD Assessment & Plan Assessment & Plan (1) Impingement of right shoulder: Code(s): M25.811 - Other specified joint disorders, right shoulder Plan Sutures removed today, steri strips applied. She will begin a course of physical therapy to work on ROM and strengthening. She will remain out of work till July 25, at which point she will return to work without restrictions and see me back in [address] Ty, sooner if needed. Orders: Orders PT Evaluation and Treatment Today M25.811 - Other specified joint disorders, right shoulder Patient Instructions: Scribed for Michelle Mason PA-C, by [facility] director, on 07/15/2023 at 9:30 AM EST. IMichelle PA-C, have personally reviewed and agree with the information entered by the scribe. Coding Level of Care Code Global (53482) Diagnoses Impingement of right shoulder M25.811
== END 2023-07-15 09:37 | disposition home or self-care (01) ==
PROVIDERS: PCP Internal Medicine; Visit Provider Physician Assistant
DX: M25.811 Other specified joint disorders, right shoulder (principal)
CPT/HCPCS: 99024

== ENCOUNTER → 2023-07-15 09:01 | Outpatient (BNVA) | payer MEDICARE, MEDICAID, SELFPAY | PROVIDERS: PCP Internal Medicine; Visit Provider Physician Assistant | DX: M25.811 Other specified joint disorders, right shoulder (principal) | CPT/HCPCS: 99212 ==

== ENCOUNTER 2023-07-19 10:11 | Outpatient (AMB) | payer MEDICARE, MEDICAID, SELFPAY ==
--- NOTE | 2023-07-19 10:13 | MHC.OFFVIS ---
Intake Intake Visit Reasons: Right Shoulder RTC Repair - Retained Suture Intake Note: En 63 year old female who presents today for a post operative right shoulder RTC repair on 07/02/23. Patient reports sutures were left in the incision located at the back of her shoulder. Allergies lisinopril [LISINOPRIL] Allergy (Intermediate, Verified 07/15/23 09:20) SWELLING acetaminophen [From FIORICET] Allergy (Unknown, Verified 07/15/23 09:20) RASH butalbital [From FIORICET] Allergy (Unknown, Verified 07/15/23 09:20) RASH caffeine [From FIORICET] Allergy (Unknown, Verified 07/15/23 09:20) RASH insulin glargine [From LANTUS U-100 INSULIN] Allergy (Unknown, Verified 07/15/23 09:20) SWEATING FEET HPI Right Shoulder RTC Repair - Retained Suture HPI Details 63-year-old female who returns to the office today for post-op right RTC repair, 07/02/23. She reports the sutures were left at the incision at the back of her shoulder. She is doing well overall and has no other concerns today. 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 Essential hypertension Obesity due to excess calories BMI 40.0-44.9, adult Hyperlipidemia LDL goal <100 Surgical History History of shoulder surgery (~2011) Hx of cholecystectomy Hx of appendectomy Family History Father Diabetes CVD (cardiovascular disease) Mother CVD (cardiovascular disease) Social History Household Members: None Patient Tobacco Use Status: Never used Tobacco 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 No erythema or drainage. NVI. Assessment & Plan Assessment & Plan (1) Impingement of right shoulder: Code(s): M25.811 - Other specified joint disorders, right shoulder Plan Sutures removed today, steri strips applied. She will begin working on physical therapy next week and see back fir her next scheduled postop appointment, sooner if needed. Patient Instructions: Scribed for Michelle Mason PA-C, by [facility] billing service, on 07/19/2023 at 10:15 AM EST. I, Michelle Mason PA-C, have personally reviewed and agree with the information entered by the scribe. Coding Level of Care Code Global (20042) Diagnoses Impingement of right shoulder M25.811
== END 2023-07-19 12:34 | disposition home or self-care (01) ==
LOC: HO.HOS 10:11
PROVIDERS: PCP Internal Medicine; Visit Provider Physician Assistant
DX: M25.811 Other specified joint disorders, right shoulder (principal)
CPT/HCPCS: 99024

== ENCOUNTER → 2023-07-19 10:11 | Outpatient (BNVA) | payer MEDICARE, MEDICAID, SELFPAY | PROVIDERS: PCP Internal Medicine; Visit Provider Physician Assistant | DX: M25.811 Other specified joint disorders, right shoulder (principal) | CPT/HCPCS: 99212 ==

== ENCOUNTER 2023-08-11 09:14 | Outpatient (AMB) | payer MEDICARE, MEDICAID, SELFPAY ==
--- NOTE | 2023-08-11 09:24 | A.OFFVIS_ITS ---
Vital Signs 08/11/23 09:29 Height 5 ft 2 in Weight 234 lb BMI 42.8 Intake Visit Reasons: PO-Rt Shld 07/02/23 DR Intake Note: Tasha is a 63 year old female who presents for her post operative appointment s/p Right shoulder on 07/02/2023. Patient reports she is feeling better but still has some pain and her ROM is good. She is going to physical therapy and states it is going well. She does take oxycodone as needed for her discomfort. Allergies lisinopril [LISINOPRIL] Allergy (Intermediate, Verified 08/11/23 09:26) SWELLING acetaminophen [From FIORICET] Allergy (Unknown, Verified 08/11/23 09:) RASH butalbital [From FIORICET] Allergy (Unknown, Verified 08/11/23 09:26) RASH caffeine [From FIORICET] Allergy (Unknown, Verified 08/11/23 09:26) RASH insulin glargine [From LANTUS U-100 INSULIN] Allergy (Unknown, Verified 08/11/23 09:26) SWEATING FEET Medication List - Last Reconciled 08/11/23 by Julian Ty MD amlodipine 5 mg PO DAILY atorvastatin 10 mg PO QPM 30 days blood sugar diagnostic (Zooppa Verio test strips) As directed to test blood sugar 3 times a day blood-glucose meter (Zooppa Verio Flex Start kit) As directed 3x/day dulaglutide 1.5 mg (0.5 mL) subcut QWEEK gabapentin 300 mg PO BEDTIME hydrochlorothiazide 25 mg PO DAILY ibuprofen 600 mg PO Q8H PRN ibuprofen 600 mg PO Q6H PRN indomethacin 50 mg PO Q8H 5 days insulin aspart U-100 (Novolog FlexPen U-100 Insulin aspart) 8 - 10 units subcut before dinner; 28 days insulin degludec (Tresiba FlexTouch U-200 insulin) 46 units (0.23 mL) subcut DAILY lancets (Real MattersTouch Delica Lancets) Three times a day latanoprost 0.005% 1 drp ophthalmic (eye) BEDTIME levothyroxine 112 mcg PO DAILY metformin 1,000 mg PO DAILY naloxone 4 mg/actuation (Narcan) 4 mg intranasal Q2M oxycodone 5 mg PO Q8H PRN 3 days oxycodone 10 mg (2 x 5 mg) PO Q4H PRN oxycodone 10 mg (2 x 5 mg) PO Q6H PRN oxycodone 5 mg PO Q8H PRN 10 days pen needle, diabetic (BD Ultra-Fine Sulma Pen Needle) As directed two times a day prednisone 40 mg (2 x 20 mg) PO DAILY 5 days PFSH Medical History Insomnia Glaucoma Thyroid disease Diabetes Anxiety Depression Spondylosis of lumbar region without myelopathy or radiculopathy Venous stasis Lichen simplex chronicus Lichen sclerosus Diabetic retinopathy of both eyes Sleep apnea Pain in left foot Hypothyroidism Controlled diabetes mellitus without complication, with long-term current use of insulin 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 Essential hypertension Obesity due to excess calories BMI 40.0-44.9, adult Hyperlipidemia LDL goal <100 Surgical History History of shoulder surgery (~2011) Hx of cholecystectomy Hx of appendectomy Family History Father Diabetes CVD (cardiovascular disease) Mother CVD (cardiovascular disease) Social History Household Members: None Patient Tobacco Use Status: Never used Tobacco 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 Parmjit Mcfarland continues to do well after undergoing right shoulder arthroscopic surgery on 07/02/2023. She will continue going to formal physical therapy for now. She will gradually transition to a home exercise program. I discussed with the patient the fact that her range of motion should continue to improve over the next few months. I did refill her prescription for oxycodone. She will contact me prior to her follow-up appointment in 2 months should any questions or concerns arise. Feel free to call me at any time should questions regarding her orthopedic management arise. Medications: New oxycodone Partial Fill upon patient request. 5 mg PO Q8H PRN 30 tabs 0RF pain 10 days Coding Level of Care Code Global (73729) Diagnoses Right shoulder pain M25.511
[2023-08-11 09:29] VITALS: BMI 42.8
== END 2023-08-11 09:48 | disposition home or self-care (01) ==
PROVIDERS: PCP Internal Medicine; Visit Provider Orthopaedic Surgery
DX: M25.511 Pain in right shoulder (principal)
CPT/HCPCS: 99024

== ENCOUNTER → 2023-08-11 09:14 | Outpatient (BNVA) | payer MEDICARE, MEDICAID, SELFPAY | PROVIDERS: PCP Internal Medicine; Visit Provider Orthopaedic Surgery | DX: M25.511 Pain in right shoulder (principal); Z47.89 Encounter for other orthopedic aftercare; Z98.890 Other specified postprocedural states | CPT/HCPCS: 99212 ==

== ENCOUNTER 2023-09-14 08:59 | Outpatient (AMB) | payer MEDICARE, MEDICAID, SELFPAY ==
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
[2023-09-14 09:06] VITALS: BMI 42.8
== END 2023-09-14 09:19 | disposition home or self-care (01) ==
PROVIDERS: PCP Internal Medicine; Visit Provider Orthopaedic Surgery
DX: M25.511 Pain in right shoulder (principal)
CPT/HCPCS: 99024

== ENCOUNTER → 2023-09-14 08:59 | Outpatient (BNVA) | payer MEDICARE, MEDICAID, SELFPAY | PROVIDERS: PCP Internal Medicine; Visit Provider Orthopaedic Surgery | DX: Z47.89 Encounter for other orthopedic aftercare (principal) | CPT/HCPCS: 99212 ==

== ENCOUNTER 2023-09-16 11:00 | Outpatient (RCR) | payer MEDICARE, MEDICAID, SELFPAY ==
--- NOTE | 2023-07-27 13:51 | MHC.PT.EP ---
[facility] [place] Office [place] Office [place] Office [address] [phone] F: [phone] F: [phone] F: [phone] F: [phone] Physical Therapy Plan of Care Date of Evaluation: 07/27/23 Date of Surgery: 07/02/23 Diagnosis: MD Dx: right shoulder pain (RL) PT Dx: DOS 07/02/23 post-op R anterior capsular release, excision of coracoacromial ligament, SAD, DCE, manipulation under anesthesia Assessment: pt is a 63 y/o female presenting to physical therapy w/ referring diagnosis of right shoulder pain. pt underwent R anterior capsular release, excision of coracoacromial ligament, SAD, DCE, manipulation under anesthesia on 07/02/23. Impairments include pain, decreased range of motion, decreased strength, impaired functional mobility, impaired postural awareness, and altered ambulation mechanics. pt is a good candidate for skilled PT due to age, potential remediation of impairments, typical disease/condition progression and prognosis, comorbidities, and motivation. pt would benefit from skilled PT intervention to provide a tailored strengthening and stretching exercise program, functional training, gait training, postural re-training, neuromuscular re-education, modalities as needed for pain, equipment safety demonstration. Frequency and Duration: The patient will be seen 2x/wk for 8 wks Short Term Goals: pt will be I w/ HEP to promote self-management of condition. pt will improve R shoulder flexion AROM by at least 10 degrees to promote ease in self-care activities. Fdc Goals: pt will report a statistically significant improvement in self-reported outcome measure, SPADI, to promote return to PLOF. 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 Treatment Plan: Modalities to reduce pain, spasms and effusion. Manual therapy to restore motion and function. Therapeutic exercise to improve strength and flexibility. Neuromuscular re-education for posture and balance. Therapeutic activities to return to functional activities of daily living. Electronically signed by: Jennifer Gómez PT, DPT Please sign and return to therapist. Thank you for your referral.
--- NOTE | 2023-10-08 09:41 | MHC.PT.DC ---
[facility] [place] Office [place] [facility] [place] Office [address] Rosetta Roca 140 [facility] [phone] F: [phone] F: [phone] F: [phone] F: [phone] Physical Therapy Discharge Report Diagnosis: MD Dx: right shoulder pain (RL) PT Dx: DOS 07/02/23 post-op R anterior capsular release, excision of coracoacromial ligament, SAD, DCE, manipulation under anesthesia Date of Surgery: 07/02/23 Date of Evaluation: 07/27/23 Date of Discharge: 10/08/23 Treatments to Date: 14 Cancellations to Date: 3 No Shows to Date: 1 Discharge Status: Patient Elected to Stop Discharge Summary: The patient cancelled and no showed her last two scheduled appointments. When she was attending physical therapy she was still experiencing moderate shoulder pain. Her range of motion and strength were functional; however, she was not noticing any significant improvement in her pain symptoms post-surgery or physical therapy. She is discharged from this physical therapy plan of care. Electronically signed by: Jennifer Gómez PT, DPT Please sign and return to therapist. Thank you for your referral.
== END 2023-10-08 09:41 | disposition home or self-care (01) ==
LOC: HO.PT 11:00
PROVIDERS: PCP Internal Medicine; Visit Provider Physician Assistant
DX: M25.811 Other specified joint disorders, right shoulder (principal)
CPT/HCPCS: 97110; 97140; 97162; 97164

== ENCOUNTER 2023-10-26 14:35 | Emergency (ER) | payer OTHER, MEDICARE, MEDICAID, SELFPAY ==
--- NOTE | ~2023-10-26 | XR_ITS ---
EXAMINATION: XR SHOULDER, RIGHT CLINICAL INFORMATION: Pain in right shoulder COMPARISON: 04/18/2023 TECHNIQUE: AP external rotation, Grashey, scapular Y, and axillary views of the right shoulder. FINDINGS: There is no significant interval change in appearance of normal right glenohumeral joint and acromioclavicular joint. Seen previously soft tissue calcification adjacent to the greater tuberosity resolved. There is no fracture or subluxation. XR/XR shoulder RT min 2V IMPRESSION: No significant abnormalities.
[2023-10-26 15:01] VITALS: BP 146/54; PULSE 70; RESP 18; TEMP 36.1; O2SAT 95; BMI 44.9
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
--- OUTSIDE RECORDS SUMMARY | 2023-10-26 15:44 | XMS_ITS | Continuity of Care Document ---
Author Organization [facility] Address [address] [place] [id number] Care Team Providers Care Financial Reporting Manager Name Role Phone Ramiro FREEDMAN, Russell Primary Care Physician Encounter [facility] [place] Date(s): 06/17/23 - 07/17/23 [facility] [address] [place] [id number] Attending Physician: Ernesto Kelly Admitting Physician: AdmErnesto gurroal Referring Physician: Admtr, Ar8 Allergies, Adverse Reactions, Alerts Substance Reaction Severity Status Fioricet Active Immunizations Given and Recorded Vaccine Date Status Refusal Reason SARS-CoV-2 (COVID-19) mRNA BNT-162b2 vac 07/16/20 Given SARS-CoV-2 (COVID-19) mRNA BNT-162b2 vac 06/18/20 Given Medications Amlodipine By Mouth, Daily, 0 Refills, Maintenance, 05/19/18 10:49:20 EST Start Date: 05/19/18 Status: Ordered CPAP Machine See Instructions, # 1 each, Maintenance, Auto CPAP 11-15, Nasal mask. [facility], 08/29/18 15:34:47 EDT, Compound Start Date: 08/29/18 Status: Ordered GlipiZIDE By Mouth, Daily, 0 Refills, Maintenance, 12/05/15 8:45:55 Start Date: 12/05/15 Status: Ordered Hydrochlorothiazide By Mouth, Daily, 0 Refills, Maintenance, 05/19/18 10:49:35 EST Start Date: 05/19/18 Status: Ordered Lantus Inj Subcutaneous Infusion, 0 Refills, Maintenance, 08/29/18 14:42:16 EDT Start Date: 08/29/18 Status: Ordered levothyroxine 0.112 mg oral tablet 1 tablet = 112 mcg, By Mouth, Daily, 0 Refills, Maintenance, 12/05/15 8:46:35 Start Date: 12/05/15 Status: Ordered Melatonin Daily at bedtime, 0 Refills, Maintenance, 05/19/18 10:49:09 EST Start Date: 05/19/18 Status: Ordered NovoLog Inj Subcutaneous Infusion, 3 times a day before meals, 0 Refills, Maintenance, 08/29/18 14:42:08 EDT Start Date: 08/29/18 Status: Ordered Tradjenta = 5 mg, By Mouth, Daily, 0 Refills, Maintenance, 05/19/18 10:48:51 EST Start Date: 05/19/18 Status: Ordered Trulicity Pen Subcutaneous Infusion, 0 Refills, Maintenance, 05/19/18 10:48:59 EST Start Date: 05/19/18 Status: Ordered Vitamin D3 oral tablet 2 tablet = 800 International_Units, By Mouth, Daily, 0 Refills, Maintenance, 12/05/15 8:46:51 Start Date: 12/05/15 Status: Ordered Problem List Condition Confirmation Course Effective Dates Status Health St atus Informant Obstructive sleep apnea Confirmed Active Severe obesity Confirmed Active Social History Social History Type Response Smoking Status Never (less than 100 in lifetime) entered on: 05/19/18 Sex Patient Care team information Care Team Personnel Name: Russell Rubio MD Position: Reference Physician Member Role: PCP Address: Address: [address] [place] [address] [address] [place] [address]- Care Team Related Persons Name: GRISELDA PIERCE Address: home [address] [place] [address] Name: ALBERTO PIERCE Address: home [address] [place] [address]
--- OUTSIDE RECORDS SUMMARY | 2023-10-26 15:44 | XMS_ITS | Continuity of Care Document ---
Author Organization [facility] Address [address] [place] [id number] Care Team Providers Care Placement Assistant Name Role Phone Ramiro FREEDMAN, Russell Primary Care Physician [place] [facility] [place] 07/17/23 [facility] [address] [place] [id number] Attending Physician: Dorinda Masters MD Admitting Physician: Dorinda Masters MD Allergies, Adverse Reactions, Alerts Substance Reaction Severity Status Fioricet Active Immunizations Given and Recorded Vaccine Date Status Refusal Reason SARS-CoV-2 (COVID-19) mRNA BNT-162b2 vac 07/16/20 Given SARS-CoV-2 (COVID-19) mRNA BNT-162b2 vac 06/18/20 Given Medications Amlodipine By Mouth, Daily, 0 Refills, Maintenance, 05/19/18 10:49:20 EST Start Date: 05/19/18 Status: Ordered CPAP Machine See Instructions, # 1 each, Maintenance, Auto CPAP 11-15, Nasal mask. [facility], 08/29/18 15:34:47 EDT, Compound Start Date: 08/29/18 [...] Reference Physician Member Role: PCP Address: Address: [address] [place] [address] [address] [place] [address]- Care Team Related Persons Name: GRISELDA PIERCE Address: home [address] [place] [address] Name: ALBERTO PIERCE Address: home [address] [place] [address]
[2023-10-26] MEDS: Ketorolac Tromethamine 30 MG/ML VIAL IM (16:17)
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
[2023-10-26 17:11] VITALS: BP 146/54; PULSE 70; RESP 18; TEMP 36.1; O2SAT 96
== END 2023-10-26 17:12 | disposition home or self-care (01) ==
PROVIDERS: Emergency Provider Emergency Medicine Emergency Medical Services; PCP Internal Medicine
DX: S49.81XA Other specified injuries of right shoulder and upper arm, initial encounter (principal); M25.511 Pain in right shoulder; V53.6XXA Passenger in pick-up truck or van injured in collision with car, pick-up truck or van in traffic accident, initial encounter; Y93.89 Activity, other specified; Y92.488 Other paved roadways as the place of occurrence of the external cause; Y99.8 Other external cause status
CPT/HCPCS: 73030; 96372; 99284; J1885

== ENCOUNTER 2023-11-21 18:33 | Emergency (ER) | payer MEDICARE, MEDICAID, SELFPAY ==
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
[2023-11-21 18:40] VITALS: BP 114/65; BP 115/65; PULSE 62; PULSE 98; RESP 20; TEMP 36.7; O2SAT 98; O2SAT 99; BMI 44.4
[2023-11-21 18:42] VITALS: BP 115/65; PULSE 64; RESP 20; TEMP 36.7; O2SAT 98
[2023-11-21 19:13] LABS: MANUAL DIFF FLAG NO
[2023-11-21 19:14] LABS: Basophils Percent Auto 0.5 % (0-2); Eosinophils Absolute Auto 0.3 X10*3/uL (0.0-0.4); Eosinophils Percent Auto 3.1 % (0-4); Hematocrit 37.9 % (37.0-47.0); Hemoglobin 12.2 g/dl (12.0-16.0); Imm Gran Abs Auto 0.03 X10*3/uL (0.00-0.03); Imm Gran Pct Auto 0.3 % (0.0-0.4); Lymphocytes Absolute Auto 2.1 X10*3/uL (1.2-4.9); Lymphocytes Percent Auto 23.7 % (20-40); Mean Corpuscular HGB Conc 32.2 g/dl (31.0-35.0); Mean Corpuscular Hemoglobin 29.9 pg (27.0-33.0); Mean Corpuscular Volume 92.9 fL (80.0-98.0); Mean Platelet Volume 10.3 fL (9.4-12.3); Monocytes Absolute Auto 0.6 X10*3/uL (0.1-1.2); Monocytes Percent Auto 6.9 % (2-11); Neutrophils Absolute Auto 5.8 x10*3/uL (2.0-8.3); Neutrophils Percent Auto 65.5 % (45-73); Platelet Count 267 X10*3/uL (160-400); Red Blood Count 4.08 X10*6/uL (4.20-5.50); Red Cell Distribution Width 13.1 % (11.0-16.0); White Blood Count 8.8 X10*3/uL (4.8-10.8)
[2023-11-21 19:28] LABS: Alanine Aminotransferase 10 U/L (0-31); Albumin Level 3.7 g/dL (3.5-5.0); Alkaline Phosphatase 139 U/L (39-117); Anion Gap 9 (12-20); Aspartate Amino Transferase 13 U/L (5-31); Bilirubin Total 0.2 mg/dL (0.0-1.0); Blood Urea Nitrogen 9 mg/dL (9-16); Calcium 8.7 mg/dL (8.4-10.2); Carbon Dioxide 28 mmol/L (22-29); Chloride 107 mmol/L (96-108); Creatinine Clr Calc Pharmacy 71.1; Estimated Glomerular Filt Rate 59; Glucose Random 208 mg/dL (60-115); Potassium 4.1 mmol/L (3.3-5.1); Sodium 140 mmol/L (135-145); Total Protein 7.4 g/dL (6.5-8.0)
[2023-11-21 20:27] VITALS: BP 126/52; PULSE 63; RESP 18; TEMP 36.9; O2SAT 96
[2023-11-21 20:57] LABS: Appearance Urine Clear; Color Urine Yellow; Glucose Urine UA Negative (Negative); Leukocyte Esterase Urine Negative (Negative); Nitrite Urine Negative (Negative); PH 6.5 (5.0-9.0); Urine Blood Negative (Negative); Urine Ketones Negative (Negative); Urine Protein Negative (Neg-Trace)
[2023-11-21 20:59] LABS: Bacteria Urine None Seen (None Seen); RBC Urine 0-2 /HPF (0-2); Squamous Epithelial Cell Urine 0-2 /HPF (0-2); WBC Urine 0-5 /HPF (0-5)
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
[2023-11-21 21:54] LABS: Lipase 55 U/L (8-78)
[2023-11-21] MEDS: oxyCODONE HCl Immed Release 5 MG TABLET PO (22:13)
[2023-11-21] MEDS: Cyclobenzaprine HCl 10 MG TABLET PO (22:13)
[2023-11-21] MEDS: Ibuprofen 400 MG TABLET PO (22:14)
[2023-11-22 00:12] VITALS: BP 126/52; PULSE 63; RESP 18; TEMP 36.9; O2SAT 96
== END 2023-11-22 00:13 | disposition home or self-care (01) ==
PROVIDERS: Emergency Provider Emergency Medicine
DX: M54.50 Low back pain, unspecified (principal); R10.30 Lower abdominal pain, unspecified; Z79.899 Other long term (current) drug therapy
CPT/HCPCS: 36415; 72100; 80053; 81001; 83690; 85025; 99284

== ENCOUNTER 2023-11-23 09:00 | Outpatient (AMB) | payer MEDICARE, MEDICAID, SELFPAY ==
--- NOTE | 2023-11-23 09:12 | MHC.OFFVIS ---
Vital Signs 11/23/23 09:33 Height 5 ft 2 in Weight 243 lb BMI 44.4 Intake Visit Reasons: OV-Rt Shld 07/02/23 DR Intake Note: En 63 year old female who presents for routine follow-up after undergoing right shoulder arthroscopic surgery on 07/02/2023. She reports mild intermittent discomfort in her right shoulder. She has completed formal physical therapy. She continues with her home stretching program. She denies any fevers or chills. Associate Project Manager Required: Yes Associate Project Manager Services: Associate Project Manager Present Associate Project Manager Name: Rico ID#[id number] Allergies lisinopril [LISINOPRIL] Allergy (Intermediate, Verified 11/23/23 09:28) SWELLING acetaminophen [From FIORICET] Allergy (Unknown, Verified 11/23/23 09:28) RASH butalbital [From FIORICET] Allergy (Unknown, Verified 11/23/23 09:28) RASH caffeine [From FIORICET] Allergy (Unknown, Verified 11/23/23 09:28) RASH insulin glargine [From LANTUS U-100 INSULIN] Allergy (Unknown, Verified 11/23/23 09:28) SWEATING FEET Medication List - Last Reconciled 11/23/23 by Julian Ty MD atorvastatin 10 mg PO QPM 30 days blood sugar diagnostic (yetu Verio test strips) As directed to test blood sugar 3 times a day blood-glucose meter (KeldeliceTouch Verio Flex Start kit) As directed 3x/day cyclobenzaprine 10 mg PO Q12H PRN dulaglutide 1.5 mg (0.5 mL) subcut QWEEK gabapentin 300 mg PO BEDTIME hydrochlorothiazide 25 mg PO DAILY ibuprofen 600 mg PO Q8H PRN indomethacin 50 mg PO Q8H 5 days insulin aspart U-100 (Novolog FlexPen U-100 Insulin aspart) 8 - 10 units subcut before dinner; 28 days insulin degludec (Tresiba FlexTouch U-200 insulin) 46 units (0.23 mL) subcut DAILY lancets (KeldeliceTouch Delica Lancets) Three times a day latanoprost 0.005% 1 drp ophthalmic (eye) BEDTIME levothyroxine 112 mcg PO DAILY lidocaine 5% (Lidoderm) 1 patch topical DAILY losartan 50 mg PO DAILY metformin 1,000 mg PO DAILY pen needle, diabetic (BD Ultra-Fine Sulma Pen Needle) As directed two times a day [facility] Medical History Insomnia Glaucoma Thyroid disease Diabetes Anxiety Depression Spondylosis of lumbar region without myelopathy or radiculopathy Venous stasis Lichen simplex chronicus Lichen sclerosus Diabetic retinopathy of both eyes Sleep apnea Pain in left foot Hypothyroidism Controlled diabetes mellitus without complication, with long-term current use of insulin nursing home current use of insulin Essential hypertension Obesity due to excess calories BMI 40.0-44.9, adult Hyperlipidemia LDL goal <100 Surgical History History of shoulder surgery (~2011) Hx of cholecystectomy Hx of appendectomy Family History Father Diabetes CVD (cardiovascular disease) Mother CVD (cardiovascular disease) Social History Household Members: None Patient Tobacco Use Status: Never used Tobacco 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, 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 Physical Exam Vital Signs: BMI result Body Mass Index 44.4 Const Other: Well-nourished well-developed very friendly female awake alert and oriented x3 in no acute distress Extrem Other: Bilateral upper extremity examination shows good capillary refill, no skin lesions noted, normal sensation light touch Right shoulder examination shows improved range of motion when compared to her last visit with forward flexion to 100 60 degrees, external rotation to 50 degrees, internal rotation to level L2, mild discomfort with resisted forward flexion, 5/5 strength with supraspinatus testing, no instability Assessment & Plan Assessment & Plan (1) Right shoulder pain: Code(s): M25.511 - Pain in right shoulder Category: Medical Plan Ms. Parmjit Mcfarland continues to do well after undergoing shoulder arthroscopic surgery on July 02 1023. I discussed with the patient the fact that her symptoms should continue to improve over the next few months. At this point the patient's symptoms are tolerable to her. We will hold off on a cortisone injection. She will contact me prior to her follow-up appointment in 2 months should any questions or concerns arise. Feel free to call me at any time should questions regarding her orthopedic management arise. I spent 22 minutes in reviewing the patient's records and imaging studies, seeing the patient and documenting in the medical record. Coding Level of Care Code Est Pt Level 3 (11881) Diagnoses Right shoulder pain M25.511
[2023-11-23 09:33] VITALS: BMI 44.4
== END 2023-11-23 09:46 | disposition home or self-care (01) ==
LOC: HO.HOS 09:00
PROVIDERS: PCP Internal Medicine; Visit Provider Orthopaedic Surgery
DX: M25.511 Pain in right shoulder (principal)
CPT/HCPCS: 99213

== ENCOUNTER → 2023-11-23 09:00 | Outpatient (BNVA) | payer MEDICARE, MEDICAID, SELFPAY | PROVIDERS: PCP Internal Medicine; Visit Provider Orthopaedic Surgery | DX: M25.511 Pain in right shoulder (principal) | CPT/HCPCS: 99212 ==

== ENCOUNTER 2023-12-17 16:27 | Emergency (ER) | payer MEDICARE, MEDICAID, SELFPAY ==
--- NOTE | ~2023-12-17 | XR_ITS ---
EXAMINATION: XR CHEST CLINICAL INFORMATION: Chest pain. COMPARISON: Chest radiograph dated October 22, 2021. TECHNIQUE: 2 views of the chest were obtained. FINDINGS: The heart is normal in size. Both lungs are clear. No consolidation. The pleural spaces are clear. No pneumothorax. No acute osseous abnormality. XR/XR chest 2V IMPRESSION: No acute cardiopulmonary disease. Electronically signed by: Telly Delatorre DO 12/17/2023 07:18 PM EDT
--- NOTE | 2023-12-17 16:42 | ED.GENADULT ---
HPI - General Adult General Chief complaint: Upper Respiratory Symptoms Stated complaint: covid + chest discomfort Time Seen by Provider: 12/17/23 21:33 History of Present Illness ED Provider: Ortiz MORRISON narrative: The patient is a 63-year-old female who has been feeling unwell for about 6 days. She says that she has been having cough. She was tested for COVID 4 days ago on Wednesday and tested positive. She says that she has had a lot of coughing which is causing chest pain. She has also had some nausea and occasional vomiting. She has felt somewhat dizzy. She has felt somewhat short of breath. She has had no pain or swelling in her legs. She think she has probably had fevers. She says that she feels rotten. Related Data Home Medications ?Medication ?Instructions ?Recorded ?Confirmed hydrochlorothiazide 25 mg tablet 25 mg PO DAILY 03/20/20 11/23/23 levothyroxine 112 mcg tablet 112 mcg PO DAILY 03/20/20 11/23/23 metformin 1,000 mg tablet 1,000 mg PO DAILY 03/20/20 11/23/23 gabapentin 300 mg capsule 300 mg PO BEDTIME 07/07/21 11/23/23 latanoprost 0.005 % eye drops 1 drp ophthalmic (eye) BEDTIME 07/07/21 11/23/23 losartan 50 mg tablet 50 mg PO DAILY 11/23/23 11/23/23 Previous Rx's ?Medication ?Instructions ?Recorded blood sugar diagnostic (TrafficLandTouch #100 ea 02/14/21 Verio test strips) blood-glucose meter (OneTouch #1 ea 02/14/21 Verio Flex Start kit) pen needle, diabetic 32 gauge x #100 ea 05/22/2132 (BD Ultra-Fine Sulma Pen Needle) dulaglutide 1.5 mg/0.5 mL 1.5 mg (0.5 mL) subcut QWEEK #2 mL 08/15/21 subcutaneous pen injector insulin degludec 200 unit/mL (3 46 unit (0.23 mL) subcut DAILY #9 08/20/21 mL) subcutaneous pen (Tresiba mL FlexTouch U-200 insulin) lancets 33 gauge (OneTouch Sharda #100 ea 10/17/21 Lancets) atorvastatin 10 mg tablet 10 mg PO QPM 30 days #30 tabs 11/10/21 insulin aspart U-100 100 unit/mL 8 - 10 unit (0.08 - 0.1 mL) subcut 02/26/22 (3 mL) subcutaneous pen (Novolog .COMPLEX 28 days #15 mL FlexPen U-100 Insulin aspart) indomethacin 50 mg capsule 50 mg PO Q8H gout 5 days #15 caps 06/09/22 lidocaine 5 % topical patch 1 patch topical DAILY #15 ea 10/26/23 (Lidoderm) cyclobenzaprine 10 mg tablet 10 mg PO Q12H PRN muscle spasm #14 11/21/23 tabs ibuprofen 600 mg tablet 600 mg PO Q8H PRN pain #20 tabs 11/21/23 albuterol sulfate 90 mcg/actuation 2 puff inhalation Q4-6H PRN 12/17/23 aerosol inhaler shortness of breath or wheezing #8.5 grams ibuprofen 400 mg tablet 400 mg PO Q8H PRN pain #14 tabs 12/17/23 ondansetron 4 mg disintegrating 4 mg PO Q6H PRN nausea and 12/17/23 tablet vomiting #10 tabs Allergies Allergy/AdvReac Type Severity Reaction Status Date / Time lisinopril [LISINOPRIL] Allergy Intermediate SWELLING Verified 12/17/23 16:44 butalbital [From FIORICET] Allergy Unknown RASH Verified 12/17/23 16:44 insulin glargine Allergy Unknown SWEATING Verified 12/17/23 16:44 [From LANTUS U-100 INSULIN] FEET Review of Systems Review of Systems: Yes all other systems are reviewed and are negative FORMERLY [facility], [facility] Past Medical History Medical History Insomnia Glaucoma Thyroid disease Diabetes Anxiety Depression Spondylosis of lumbar region without myelopathy or radiculopathy Venous stasis Lichen simplex chronicus Lichen sclerosus Diabetic retinopathy of both eyes Sleep apnea Pain in left foot Hypothyroidism Controlled diabetes mellitus without complication, with long-term current use of insulin assisted current use of insulin Essential hypertension Obesity due to excess calories BMI 40.0-44.9, adult Hyperlipidemia LDL goal <100 Surgical History History of shoulder surgery (~2011) Hx of cholecystectomy Hx of appendectomy Family History Family History Father Diabetes CVD (cardiovascular disease) Mother CVD (cardiovascular disease) Social History Social History Household Members: None Patient Tobacco Use Status: Never used Tobacco Advance Directives: No Advance Directives Information Provided: No Do you have a plan to hurt others: No Plan 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 She is an overweight 63-year-old female ( BMI 45) who looks as if she does not feel very well but does not seem in overt distress. No increased work of breathing or apparent discomfort. HENMT Other: The face is symmetrical. Mucous membranes are moist. Posterior pharynx is unremarkable. Airway is clear. Eyes General: appearance normal, both eyes and all related structures Neck Neck: Yes normal visual inspection, Yes full ROM, Yes no lymphadenopathy and Yes no JVD Resp Effort & Inspection: normal respiratory effort Auscultation: clear to auscultation bilaterally Cardio Rate: regular rate Heart sounds: S1 normal heart sound present and S2 normal heart sound present GI Other: Abdomen is soft and nontender Neuro Other: the patient is awake and alert with normal mental status. Cranial nerves are grossly intact. She moves her extremities normally and appropriately. Extrem Other: No calf swelling or tenderness or asymmetry. No edema. Course Course Course Narrative: RME performed by Beatrice Purcell PA-C. Patient is a 63 year old assigned female at presenting to the emergency department with chest pain. Patient states that she is COVID positive as of a few days ago. Detailed physical exam and review of systems are deferred to the before school babysitter. EKG, labs, imaging, and swabs ordered. Patient placed back in the waiting room pending room availability and results. Medications Administered Discontinued Medications Generic Name Dose Route Start Last Admin Trade Name Freq PRN Reason Stop Dose Admin Albuterol Sulfate 4 puff 12/17/23 21:48 12/17/23 22:27 Albuterol Sulfate 90 Mcg 8 Gm Inhaler INHALE 12/17/23 21:49 4 puff ONCE ONE Administration Ketorolac Tromethamine 30 mg 12/17/23 21:48 12/17/23 22:07 Ketorolac Tromethamine 30 Mg/Ml Vial IM 12/17/23 21:49 30 mg ONCE ONE Administration Ondansetron HCl 4 mg 12/17/23 21:48 12/17/23 22:06 Ondansetron Odt 4 Mg Tab.Jacedis TRANSLINGU 12/17/23 21:49 4 mg ONCE ONE Administration Medical Decision Making Medical Decision Making [facility] Narrative: The patient is a 63-year-old female who has tested positive for COVID as an outpatient. She has had approximately 6 days of symptoms all of which I feel are consistent with COVID. Today she has negative chest x-ray. CBC is unremarkable. Negative troponin. I do not have any significant suspicion for a pulmonary embolism in this patient. She is not tachycardic and her oxygen saturation is excellent and all of her symptoms seem more consistent with respiratory infection. She does not have a history of asthma and does not normally use inhalers. She was given 4 puffs of albuterol by respiratory therapy and instructed in the use of an MDI. She was also given ketorolac and ondansetron. She seemed to feel considerably better. She will be discharged with a prescription for an albuterol inhaler to use with an AeroChamber. She should follow up with her PCP. Lab Data 12/17/23 16:58 12/17/23 16:58 Labs: Lab Results 12/17/23 Range/Units 16:58 WBC 6.9 (4.8-10.8) X10*3/uL RBC 4.82 (4.20-5.50) X10*6/uL Hgb 14.3 (12.0-16.0) g/dl Hct 43.7 (37.0-47.0) % MCV 90.7 (80.0-98.0) fL MCH 29.7 (27.0-33.0) pg MCHC 32.7 (31.0-35.0) g/dl RDW 12.7 (11.0-16.0) % Plt Count 277 (160-400) X10*3/uL MPV 10.1 (9.4-12.3) fL Immature Gran % (Auto) 0.3 (0.0-0.4) % Neut % (Auto) 62.4 (45-73) % Lymph % (Auto) 26.4 (20-40) % [place]han % (Auto) 7.4 (2-11) % Eos % (Auto) 3.1 (0-4) % Baso % (Auto) 0.4 (0-2) % Lymph # (Auto) 1.8 (1.2-4.9) X10*3/uL [place]han # (Auto) 0.5 (0.1-1.2) X10*3/uL Eos # (Auto) 0.2 (0.0-0.4) X10*3/uL Baso # (Auto) 0.0 (0.0-0.2) X10*3/uL Abs Immat Gran (auto) 0.02 (0.00-0.03) X10*3/uL Absolute Neuts (auto) 4.3 (2.0-8.3) x10*3/uL Absolute Nucleated RBC 0.000 (0.0-0.012) X10*3/uL Nucleated RBC % (auto) 0.0 (0.0-0.2) /100WBC Sodium 140 (135-145) mmol/L Potassium 3.7 (3.3-5.1) mmol/L Chloride 106 (96-108) mmol/L Carbon Dioxide 23 (22-29) mmol/L Anion Gap 15 (12-20) BUN 20 H (9-16) mg/dL Creatinine 1.40 (0.5-1.4) mg/dL Estim Creat Clear Calc 49.1 Estimated GFR 38 Random Glucose 140 H (60-115) mg/dL Calcium 9.5 D (8.4-10.2) mg/dL Magnesium 2.0 (1.6-2.6) mg/dL Total Bilirubin 0.4 (0.0-1.0) mg/dL AST 20 (5-31) U/L ALT 18 (0-31) U/L Alkaline Phosphatase 138 H (39-117) U/L Troponin I High Sens < 2.7 (<3.5-17.0) ng/L Total Protein 8.4 H (6.5-8.0) g/dL Albumin 4.1 (3.5-5.0) g/dL Discharge Plan Discharge Clinical Impression: COVID Patient Disposition: Home, Self-Care Instructions: COVID-19 (Coronavirus Disease 2019) (ED) Additional Instructions: I believe that your symptoms are all consistent with your COVID infection. Your testing today is otherwise good. You may use albuterol 2 puffs every 4-6 hours as needed for any sense of cough or shortness of breath. Use the inhaler with the AeroChamber (spacer) device provided. You may use ibuprofen as needed for discomfort. You may also use acetaminophen. You may use ondansetron as needed for nausea. Please touch with your regular doctor's office for additional advice as needed. I would recommend you stay home from work until Wednesday so that your likelihood of transmitting COVID to anyone else is low. Return to the emergency room if worse. Prescriptions: New ondansetron 4 mg tablet,disintegrating 4 mg PO Q6H PRN (Reason: nausea and vomiting) Qty: 10 0RF ibuprofen 400 mg tablet 400 mg PO Q8H PRN (Reason: pain) Qty: 14 0RF albuterol sulfate 90 mcg/actuation HFA aerosol inhaler 2 puff inhalation Q4-6H PRN (Reason: shortness of breath or wheezing) Qty: 8.5 0RF No Action (DME) blood-glucose meter [OneTouch Verio Flex Start] Kit See Rx Instructions .Route Qty: 1 0RF Rx Instructions: As directed 3x/day (DME) OneTouch Verio test strips Strip See Rx Instructions .Route Qty: 100 11RF Rx Instructions: As directed to test blood sugar 3 times a day (DME) pen needle, diabetic [BD Ultra-Fine Sulma Pen Needle] 32 gauge x 5/32 needle See Rx Instructions .ROUTE .MEDSUPPLY Qty: 100 11RF Rx Instructions: As directed two times a day dulaglutide 1.5 mg/0.5 mL pen injector 1.5 mg subcut QWEEK Qty: 2 6RF Tresiba FlexTouch U-200 200 unit/mL (3 mL) insulin pen 46 unit subcut DAILY Qty: 9 5RF (DME) lancets [OneTouch Delica Lancets] 33 gauge misc See Rx Instructions .ROUTE .MEDSUPPLY Qty: 100 11RF Rx Instructions: Three times a day atorvastatin 10 mg tablet 10 mg PO QPM 30 Days Qty: 30 5RF insulin aspart U-100 [Novolog FlexPen U-100 Insulin] 100 unit/mL (3 mL) insulin pen 8 - 10 unit subcut .COMPLEX 28 Days Qty: 15 1RF Rx Instructions: 8 - 10 units subcut before dinner; indomethacin 50 mg capsule 50 mg PO Q8H 5 Days Qty: 15 1RF Rx Instructions: administer with food or milk ibuprofen 600 mg tablet 600 mg PO Q8H PRN (Reason: pain) Qty: 20 0RF cyclobenzaprine 10 mg tablet 10 mg PO Q12H PRN (Reason: muscle spasm) Qty: 14 0RF lidocaine [Lidoderm] 5 % adhesive patch,medicated 1 patch topical DAILY Qty: 15 0RF Rx Instructions: leave on most painful area for up to 12 hrs gabapentin 300 mg capsule 300 mg PO BEDTIME latanoprost 0.005 % drops 1 drp ophthalmic (eye) BEDTIME hydrochlorothiazide 25 mg tablet 25 mg PO DAILY levothyroxine 112 mcg tablet 112 mcg PO DAILY metformin 1,000 mg tablet 1,000 mg PO DAILY losartan 50 mg tablet 50 mg PO DAILY Referrals: Sylvia Posey MD [Primary Care Provider] - (Covid) Stand Alone Forms: Work/School Release Interventions: ED Discharge Assessment Last Done: 12/17/23 23:48 Discharge Date/Time: 12/17/23 23:49 Print Language: Yoruba
[2023-12-17 16:43] VITALS: PULSE 73; RESP 18; TEMP 36.9; O2SAT 97; BMI 45.1
--- NOTE | 2023-12-17 16:47 | ECG_ITS ---
Test Reason : cp Blood Pressure : / mmHG Vent. Rate : 068 BPM Atrial Rate : 068 BPM P-R Int : 152 ms QRS Dur : 084 ms QT Int : 374 ms P-R-T Axes : 064 -12 061 degrees QTc Int : 397 ms Normal sinus rhythm Minimal voltage criteria for LVH, may be normal variant ( R in aVL ) Inferior infarct , age undetermined Cannot rule out Anterior infarct , age undetermined Abnormal ECG When compared with ECG of 22-OCT-2021 20:41, No significant change was found Referred By: Beatrice Purcell Electronically Signed By:JOEL GOODWIN
[2023-12-17 17:02] LABS: MANUAL DIFF FLAG NO
[2023-12-17 17:07] LABS: Basophils Percent Auto 0.4 % (0-2); Eosinophils Absolute Auto 0.2 X10*3/uL (0.0-0.4); Eosinophils Percent Auto 3.1 % (0-4); Hematocrit 43.7 % (37.0-47.0); Hemoglobin 14.3 g/dl (12.0-16.0); Imm Gran Abs Auto 0.02 X10*3/uL (0.00-0.03); Imm Gran Pct Auto 0.3 % (0.0-0.4); Lymphocytes Absolute Auto 1.8 X10*3/uL (1.2-4.9); Lymphocytes Percent Auto 26.4 % (20-40); Mean Corpuscular HGB Conc 32.7 g/dl (31.0-35.0); Mean Corpuscular Hemoglobin 29.7 pg (27.0-33.0); Mean Corpuscular Volume 90.7 fL (80.0-98.0); Mean Platelet Volume 10.1 fL (9.4-12.3); Monocytes Absolute Auto 0.5 X10*3/uL (0.1-1.2); Monocytes Percent Auto 7.4 % (2-11); Neutrophils Absolute Auto 4.3 x10*3/uL (2.0-8.3); Neutrophils Percent Auto 62.4 % (45-73); Platelet Count 277 X10*3/uL (160-400); Red Blood Count 4.82 X10*6/uL (4.20-5.50); Red Cell Distribution Width 12.7 % (11.0-16.0); White Blood Count 6.9 X10*3/uL (4.8-10.8)
[2023-12-17 17:18] LABS: Alanine Aminotransferase 18 U/L (0-31); Albumin Level 4.1 g/dL (3.5-5.0); Alkaline Phosphatase 138 U/L (39-117); Anion Gap 15 (12-20); Aspartate Amino Transferase 20 U/L (5-31); Bilirubin Total 0.4 mg/dL (0.0-1.0); Blood Urea Nitrogen 20 mg/dL (9-16); Calcium 9.5 mg/dL (8.4-10.2); Carbon Dioxide 23 mmol/L (22-29); Chloride 106 mmol/L (96-108); Creatinine Clr Calc Pharmacy 49.1; Estimated Glomerular Filt Rate 38; Glucose Random 140 mg/dL (60-115); Potassium 3.7 mmol/L (3.3-5.1); Sodium 140 mmol/L (135-145); Total Protein 8.4 g/dL (6.5-8.0)
[2023-12-17 17:26] LABS: Troponin-I High Sensitivity < 2.7 ng/L (<3.5-17.0)
[2023-12-17] MEDS: Ondansetron ODT 4 MG TAB.RAPDIS TRANSLINGU (22:06)
[2023-12-17] MEDS: Ketorolac Tromethamine 30 MG/ML VIAL IM (22:07)
[2023-12-17] MEDS: Albuterol Sulfate 90 MCG 8 GM INHALER 4 PUFF INHALE (22:27)
[2023-12-17 22:28] VITALS: PULSE 74; RESP 16; O2SAT 97
[2023-12-17 23:48] VITALS: BP 0/0; PULSE 0; RESP 16; TEMP -17.7; TEMP 0; O2SAT 0
== END 2023-12-17 23:49 | disposition home or self-care (01) ==
PROVIDERS: Physician Assistant Medical; Emergency Provider Emergency Medicine; PCP Internal Medicine
DX: U07.1 COVID-19 (principal); R06.02 Shortness of breath; R05.9 Cough, unspecified
CPT/HCPCS: 36415; 71046; 80053; 83735; 84484; 85025; 93005; 94640; 96372; 99284; J1885

== ENCOUNTER 2024-01-25 10:39 | Outpatient (AMB) | payer MEDICARE, MEDICAID, SELFPAY ==
--- NOTE | 2024-01-25 11:00 | MHC.OFFVIS ---
Intake Visit Reasons: OV-Rt Shld 07/02/23 DR-F/U Intake Note: Tasha is a 63 year old female who presents to the office today for right shoulder 07/02/23 DR-Follow up. The patient reports continued mild to moderate discomfort in her right shoulder. She denies any fevers or chills. She states that she is not able to tolerate a cortisone injection at this time because it will raise her blood glucose level significantly. She has tried ibuprofen and diclofenac which gave her only mild relief. Field Laboratory Operator Required: Yes Field Laboratory Operator Language: Room Service Manager Name: [id number] Allergies lisinopril [LISINOPRIL] Allergy (Intermediate, Verified 01/25/24 11:04) SWELLING butalbital [From FIORICET] Allergy (Unknown, Verified 01/25/24 11:04) RASH insulin glargine [From LANTUS U-100 INSULIN] Allergy (Unknown, Verified 01/25/24 11:04) SWEATING FEET Medication List - Last Reconciled 01/25/24 by Julian Ty MD albuterol sulfate 90 mcg/actuation 2 puffs inhalation Q4-6H PRN atorvastatin 10 mg PO QPM 30 days blood sugar diagnostic ([employer] Verio test strips) As directed to test blood sugar 3 times a day blood-glucose meter ([employer] Verio Flex Start kit) As directed 3x/day cyclobenzaprine 10 mg PO Q12H PRN dulaglutide 1.5 mg (0.5 mL) subcut QWEEK gabapentin 300 mg PO BEDTIME hydrochlorothiazide 25 mg PO DAILY ibuprofen 600 mg PO Q8H PRN ibuprofen 400 mg PO Q8H PRN indomethacin 50 mg PO Q8H 5 days insulin aspart U-100 (Novolog FlexPen U-100 Insulin aspart) 8 - 10 units subcut before dinner; 28 days insulin degludec (Tresiba FlexTouch U-200 insulin) 46 units (0.23 mL) subcut DAILY lancets ([employer] Delica Lancets) Three times a day latanoprost 0.005% 1 drp ophthalmic (eye) BEDTIME levothyroxine 112 mcg PO DAILY lidocaine 5% (Lidoderm) 1 patch topical DAILY losartan 50 mg PO DAILY metformin 1,000 mg PO DAILY ondansetron 4 mg PO Q6H PRN pen needle, diabetic (BD Ultra-Fine Sulma Pen Needle) As directed two times a day [facility] Medical History Insomnia Glaucoma Thyroid disease Diabetes Anxiety Depression Spondylosis of lumbar region without myelopathy or radiculopathy Venous stasis Lichen simplex chronicus Lichen sclerosus Diabetic retinopathy of both eyes Sleep apnea Pain in left foot Hypothyroidism Controlled diabetes mellitus without complication, with long-term current use of insulin senior living current use of insulin Essential hypertension Obesity due to excess calories BMI 40.0-44.9, adult Hyperlipidemia LDL goal <100 Surgical History History of shoulder surgery (~2011) Hx of cholecystectomy Hx of appendectomy Family History Father Diabetes CVD (cardiovascular disease) Mother CVD (cardiovascular disease) Social History Household Members: None Patient Tobacco Use Status: Never used Tobacco 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, 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 Physical Exam Const Other: Well-nourished well-developed very friendly female awake alert and oriented x3 in no acute distress Extrem Other: Bilateral upper extremity examination shows good capillary refill, no skin lesions noted, normal sensation light touch Right shoulder examination shows that the surgical incisions are well healed, no erythema, almost full range of motion when compared to her left shoulder, mild discomfort with resisted forward flexion, no instability Assessment & Plan Assessment & Plan (1) Right shoulder pain: Code(s): M25.511 - Pain in right shoulder Category: Medical Plan Tasha continues to do fairly well after undergoing right shoulder arthroscopic surgery on 07/02/2023. She will continue with her home stretching program. I did give her a prescription for meloxicam to help with her discomfort. She will stop taking the ibuprofen and diclofenac. She will contact me prior to her follow-up appointment in 2 months should any questions or concerns arise. Feel free to call me at any time should questions regarding her orthopedic arise. I spent 20 minutes in reviewing the patient's records and imaging studies, seeing the patient and documenting in the medical record. Medications: New meloxicam 15 mg PO DAILY 30 tabs 3RF Discontinued indomethacin administer with food or milk Discontinued Reason: Duplicate 50 mg PO Q8H 5 days 15 caps 1RF gout ibuprofen Discontinued Reason: Doctor's Order 600 mg PO Q8H PRN 20 tabs 0RF pain ibuprofen Discontinued Reason: Doctor's Order 400 mg PO Q8H PRN 14 tabs 0RF pain Coding Level of Care Code Est Pt Level 3 (32820) Complex EM visit Add On G2211 Diagnoses Right shoulder pain M25.511
== END 2024-01-25 11:28 | disposition home or self-care (01) ==
PROVIDERS: PCP Internal Medicine; Visit Provider Orthopaedic Surgery
DX: M25.511 Pain in right shoulder (principal)
CPT/HCPCS: 99214; G2211

== ENCOUNTER → 2024-01-25 10:39 | Outpatient (BNVA) | payer MEDICARE, MEDICAID, SELFPAY | PROVIDERS: PCP Internal Medicine; Visit Provider Orthopaedic Surgery | DX: M25.511 Pain in right shoulder (principal); Z98.890 Other specified postprocedural states | CPT/HCPCS: 99212 ==

== ENCOUNTER 2024-03-23 09:46 | Outpatient (AMB) | payer MEDICARE, MEDICAID, SELFPAY ==
--- NOTE | 2024-03-23 09:47 | A.OFFVIS_ITS ---
Vital Signs 03/23/24 09:48 Height 5 ft 2 in Weight 246 lb BMI 45.0 Intake Visit Reasons: OV-Rt Shoulder 07/02/23 Intake Note: Tasha is a 63 year old female who presents today for a follow up visit s/p right shoulder arthroscopy 07/02/2023. She reports mild intermittent discomfort in her right shoulder. She denies any fevers or chills. She does take meloxicam which gives her fairly good relief. She continues with her home stretching program. Apartment Assistant Manager Required: No Allergies lisinopril [LISINOPRIL] Allergy (Intermediate, Verified 03/23/24 09:48) SWELLING butalbital [From FIORICET] Allergy (Unknown, Verified 03/23/24 09:48) RASH insulin glargine [From LANTUS U-100 INSULIN] Allergy (Unknown, Verified 03/23/24 09:48) SWEATING FEET Medication List - Last Reconciled 03/23/24 by Julian Ty MD albuterol sulfate 90 mcg/actuation 2 puffs inhalation Q4-6H PRN atorvastatin 10 mg PO QPM 30 days atorvastatin 40 mg PO DAILY blood sugar diagnostic ([employer] Verio test strips) As directed to test blood sugar 3 times a day blood-glucose meter ([employer] Verio Flex Start kit) As directed 3x/day dulaglutide (Trulicity) 0.75 mg subcut QWEEK hydrochlorothiazide 25 mg PO DAILY insulin aspart U-100 (Novolog FlexPen U-100 Insulin aspart) 8 - 10 units subcut before dinner; 28 days insulin degludec (Tresiba FlexTouch U-200 insulin) 46 units (0.23 mL) subcut DAILY lancets (RRT GlobalTouch Delica Lancets) Three times a day latanoprost 0.005% 1 drp ophthalmic (eye) BEDTIME levothyroxine 112 mcg PO DAILY losartan 50 mg PO DAILY meloxicam 15 mg PO DAILY metformin 1,000 mg PO DAILY pen needle, diabetic (BD Ultra-Fine Sulma Pen Needle) As directed two times a day [facility] Medical History Insomnia Glaucoma Thyroid disease Diabetes Anxiety Depression Spondylosis of lumbar region without myelopathy or radiculopathy Venous stasis Lichen simplex chronicus Lichen sclerosus Diabetic retinopathy of both eyes Sleep apnea Pain in left foot Hypothyroidism Controlled diabetes mellitus without complication, with long-term current use of insulin 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 Essential hypertension Obesity due to excess calories BMI 40.0-44.9, adult Hyperlipidemia LDL goal <100 Surgical History History of shoulder surgery (~2011) Hx of cholecystectomy Hx of appendectomy Family History Father Diabetes CVD (cardiovascular disease) Mother CVD (cardiovascular disease) Social History Household Members: None Patient Tobacco Use Status: Never used Tobacco 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, 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 Physical Exam Vital Signs: BMI result Body Mass Index 45.0 Const Other: Well-nourished well-developed very friendly female awake alert and oriented x3 in no acute distress Extrem Other: Bilateral upper extremity examination shows good capillary refill, no skin lesions noted, normal sensation light touch Right shoulder examination shows full range of motion when compared to her left shoulder, minimal discomfort with range of motion, 5/5 strength with supraspinatus testing, no instability Assessment & Plan Assessment & Plan (1) Right shoulder pain: Code(s): M25.511 - Pain in right shoulder Category: Medical Plan Ms. Parmjit Mcfarland continues to do very well after undergoing right shoulder arthroscopic surgery on 07/02/2023. She will continue with her home stretching program. The do's and don'ts of lifting were discussed at length with the patient. She will follow up with me on an as-needed basis should her symptoms worsen in any way. Feel free to call me at any time should questions regarding her orthopedic management arise. I spent 22 minutes in reviewing the patient's records and imaging studies, seeing the patient and documenting in the medical record. Coding Level of Care Code Est Pt Level 3 (41125) Complex EM visit Add On G2211 Diagnoses Right shoulder pain M25.511
[2024-03-23 09:48] VITALS: BMI 45.0
== END 2024-03-23 10:01 | disposition home or self-care (01) ==
PROVIDERS: PCP Internal Medicine; Visit Provider Orthopaedic Surgery
DX: M25.511 Pain in right shoulder (principal)
CPT/HCPCS: 99213; G2211

== ENCOUNTER → 2024-03-23 09:46 | Outpatient (BNVA) | payer MEDICARE, MEDICAID, SELFPAY | PROVIDERS: PCP Internal Medicine; Visit Provider Orthopaedic Surgery | DX: M25.511 Pain in right shoulder (principal) | CPT/HCPCS: 99212 ==

== ENCOUNTER 2024-12-14 18:25 | Emergency (ER) | payer MEDICARE, SELFPAY ==
--- OUTSIDE RECORDS SUMMARY | 2024-12-14 19:29 | XMS_ITS | Clinical Summary ---
Author Organization [facility] [address] [place] [address] [place] [phone] Phone Care Team Providers Care Court Supervisor Name Role Phone Sylvia Monroy MD Primary Care Prov ider Allergies Active Allergy Reactions Criticality Noted Date Comments Kfjfqzcpuj-Nesbpyegpamrs-Rw ff Rash Medium 02/16/2013 Lantuss-Forte 01/15/2021 Lisinopril Swelling 10/12/2018 Other Hives 10/12/2018 Fioricet W- Codeine [[id number]-pyxs-ajzj-cod ] Medications IBUPROFEN ORAL Take 1 tablet by mouth if needed. Active acetaminophen (TYLENOL) 500 mg tablet Take 1 tablet (500 mg total) by mouth every 6 (six) hours if needed. Active latanoprost (XALATAN) 0.005 % ophthalmic solution 1 Drop at bedtime. Active meloxicam (MOBIC) 15 mg tablet Take 1 tablet (15 mg total) by mouth 1 (one) time each day. 024 Active metFORMIN (GLUCOPHAGE) 1,000 mg tablet Take 1 tablet (1,000 mg total) by mouth 1 (one) time each day with breakfast. 90 each 3 025 2025 Active pen needle, diabetic 32 gauge x needle USE 3 TIMES A DAY WITH TRESIBA AND NOVOLOG 100 each 5 025 Active blood sugar diagnostic (OneTouch Verio test strips) test stripIndication s:Type 2 diabetes mellitus with morbid obesity (CMS/[facility] V24, CMS/[facility] V28) USE TO TEST BLOOD SUGAR THREE TIMES DAILY 300 strip 3 Active atorvastatin (LIPITOR) 40 mg tablet Take 1 tablet (40 mg total) by mouth 1 (one) time each day. 90 tablet Active hydroCHLOROthia zide (MICROZIDE) 12.5 mg capsule Take 1 capsule (12.5 mg total) by mouth 1 (one) time each day. 90 capsule Active losartan (COZAAR) 50 mg tablet Take 1 tablet (50 mg total) by mouth 1 (one) time each day. 90 each 025 2025 Active triamcinolone (KENALOG) 0.025 % cream Apply thin layer to affected area BID for 2 weeks then stop. Avoid face and groin. 30 g Active levothyroxine (SYNTHROID, LEVOTHROID) 175 mcg tablet Take 1 tablet (175 mcg total) by mouth 1 (one) time each day. 30 each 11 025 2025 Active Trulicity 1.5 mg/0.5 mL pen injector injection ADMINISTER 1.5 MG UNDER THE SKIN 1 TIME A WEEK 2 mL 4 025 Active insulin aspart (NovoLOG FlexPen) 100 unit/mL (3 mL) injection pen INJECT 6 UNITS UNDER THE SKIN WITH DINNER. INJECT 8 UNITS IF BLOOD SUGAR>200 30 mL 5 025 Active lancets lancets Use as instructedUSE THREE TIMES DAILY 300 each 3 025 Active Tresiba FlexTouch U-200 200 unit/mL (3 mL) CONCENTRATED injection pen INJECT 40 UNITS INTO THE SKIN EVERY NIGHT AT BEDTIME 30 mL 5 025 Active insulin degludec (Tresiba FlexTouch U-200) 200 unit/mL (3 mL) CONCENTRATED injection pen Inject 40 Units into the skin at bedtime. INJECT 40 UNITS SUBCUTANEOUS EVERY NIGHT AT BEDTIME 024 2024 Discontinued Active Problems Problem Noted Date Diagnosed Date Morbid obesity ([facility] V24, [facility] V28) 2024 Diabetic retinopathy of both eyes ([facility] V24, [facility] V28) 01/28/2023 Lichen sclerosus 12/31/2021 Overview (03/03/2024): Last Assessment & Plan: Reviewed findings with patient. Stable and overall well controlled. Ireviewed the importance of regular maintenance topical steroid use. I reviewed areas of application and amount of medication to use. Lidex every night on the left labia where those two raised spots are, Lidex every other night, everywhere else, Vaseline every morning everywhere as a skin barrier to protect it and keep it soft. Lichen simplex chronicus 12/31/2021 Overview (03/03/2024): Last Assessment & Plan: Pretty much resolved with some remnant of superficial skin remaining. No need for biopsy. Continue current regimen and add Vaseline in the AM. Venous stasis 11/06/2021 Spondylosis of lumbar region without myelopathy or radiculopathy 09/15/2019 Anxiety and depression 10/12/2018 Overview (03/03/2024): F/u [facility] Glaucoma 10/12/2018 Hyperlipidemia 10/12/2018 Assessment & Plan (10/02/2024 11:56 AM EDT): Assessment & Plan (04/27/2024 11:22 AM EST): Given the patients cardiac risk profile, the patient requires an LDL cholesterol of less than 70. I have instructed the patient on the principles of a low cholesterol diet and the importance of regular exercise. Orders: Comprehensive metabolic panel; Future Lipid panel with reflex to direct LDL; Future Hypertension 10/12/2018 Assessment & Plan (10/02/2024 11:56 AM EDT): Assessment & Plan (04/27/2024 11:22 AM EST): The patient's antihypertensive regimen is based on their underlying medical issues. At the time of this visit, the blood pressure is well controlled on losartan and hydrochlorothiazide. Encouraged to follow a low-salt diet and exercise regularly. Orders: Comprehensive metabolic panel; Future Lipid panel with reflex to direct LDL; Future Hypothyroidism 10/12/2018 Assessment & Plan (04/27/2024 7:09 PM EST): Currently on levothyroxine 150 mg a day, will recheck levels today. Orders: Thyroid stimulating hormone; Future Insomnia 10/12/2018 KATLIN on CPAP 10/12/2018 Type 2 diabetes mellitus wit h morbid obesity ([facility] V24, [facility] V28) 10/12/2018 Overview (03/03/2024): Follows with endocrinology Assessment & Plan (10/02/2024 11:56 AM EDT): Orders: Comprehensive metabolic panel; Future Hemoglobin A1c; Future Assessment & Plan (04/27/2024 7:09 PM EST): Good control of diabetes. A1c 6.8. Patient will continue with yearly Podiatric and Ophthomologic evaluations. Will continue metformin 1000 mg a day, Tresiba 46 units at bedtime, insulin aspart depending on scale, Trulicity 1.5mg a week. Patient will follow up in 3 months. Will check A1c today, will increase Trulicity to 3.0mg depending on results. Orders: Hemoglobin A1c; Future Comprehensive metabolic panel; Future Lipid panel with reflex to direct LDL; Future Encounters Date Type Department Care Team Description 12/06/2024 10:00 AM EDT Evaluation Outpatient Rehabilitation - [address] [phone] Efren Wallis, PT Strain of left knee and leg, subsequent encounter (Primary Dx); Knee strain, left, initial encounter 11/01/2024 10:15 AM EDT Office Visit Orthopedic Surgery - [address] [phone] Patrice Alfred DPM Controlled type 2 diabetes with neuropathy ([facility] V24, [facility] V28) (Primary Dx); Arthritis of both feet; Hammertoes of both feet; Ingrown right big toenail; Dermatophytosis, nail 10/19/2024 10:05 AM EDT - 10/19/2024 11:59 PM EDT Hospital Encounter XRAY - [address] [phone] Left knee pain, unspecified chronicity; Ward cyst, left Discharge Disposition: Home or Self Care 10/19/2024 10:00 AM EDT Consult Orthopedics [address] [phone] Buster Garcia PA Knee strain, left, initial encounter (Primary Dx); Synovial cyst of popliteal space (Ward), left knee; Left leg swelling; Left leg pain 10/02/2024 11:15 AM EDT Office Visit Adult Medicine [address] [phone] Sylvia Cameron MD Type 2 diabetes mellitus with morbid obesity (CMS/HCC V24, CMS/HCC V28) (Primary Dx); Primary hypertension; Mixed hyperlipidemia; Leg cramp 09/14/2024 1:09 PM EDT - 09/14/2024 11:59 PM EDT Hospital Encounter Radiology Department - [address] [phone] Left leg swelling; Left leg pain Discharge Disposition: Home or Self Care 09/14/2024 12:30 PM EDT Office Visit Adult Medicine [address] [phone] Chichi King PA Synovial cyst of popliteal space (Ward), left knee (Primary Dx); Left leg swelling; Left leg pain; Recent travel on aircraft from Last 3 Months Immunizations Name Administration Dates Next Due Pneumococcal polysaccharide 23 valent (Pneumovax 23) 2yo and older 02/27/2019 Tdap Tetanus diptheria acell ular pertussis (Boostrix; Adacel) 7yo and older 02/27/2019 Surgical History Surgery Date Site/Laterality Comments CHOLECYSTECTOMY PROCEDURE: HISTORICAL CHOLECYSTECTOMY APPENDECTOMY PROCEDURE: HISTORICAL APPENDECTOMY PARTIAL HYSTERECTOMY PROCEDURE: AR SUPRACERVICAL ABDL HYSTER W/WO RMVL TUBE OVARY SHOULDER SURGERY Right PROCEDURE: HISTORICAL SHOULDER SURGERY; COMMENT: rotator cuff SHOULDER SURGERY 07/02/2023 Right PROCEDURE: HISTORICAL SHOULDER SURGERY; COMMENT: right shoulder arthroscopy Medical History Medical History Date Comments Anxiety and depression 10/12/2018 DX:Anxiet y and depression; COMMENT: F/u [facility] counseling Uncontrolled type 2 diabetes mellitus with hyperglycemia ([facility] V24, [facility] V28) 10/12/2018 DX:Uncontrolled type 2 diabe juan mellitus with hyperglycemia ([facility]) Hypothyroidism 10/12/2018 DX:Hypothyroidis m Hypertension 10/12/2018 DX:Hypertension Hyperlipidemia 10/12/2018 DX:Hyperlipidemi a Morbid obesity ([facility] V24, [facility] V28) 10/12/2018 DX:Morbid obesity ([facility]) KATLIN on CPAP 10/12/2018 DX:KATLIN on CPAP Glaucoma 10/12/2018 DX:Glaucoma Insomnia 10/12/2018 DX:Insomnia Diabetic retinopathy of both eyes ([facility] V24, [facility] V28) 01/28/2023 DX:Diabetic retinopathy of both eyes ([facility]) Family History Medical History Relation Name Comments Breast cancer Aunt mat Diabetes Brother 1 Diabetes Brother 2 No Known Problems Daughter Diabetes Father ESRD Father Diabetes Mother Hypertension Mother Stroke Mother No Known Problems Sister 1 Diabetes Sister 2 No Known Problems Son Colon cancer Neg Hx Ovarian cancer Neg Hx Pancreatic cancer Neg Hx Prostate cancer Neg Hx Uterine cancer Neg Hx Relation Name Status Comments Aunt mat Alive Brother 1 Alive Brother 2 Alive Daughter Alive Father (Age 74) Mother Alive Sister 1 Alive Sister 2 Alive Son Alive Social History Tobacco Use Types Packs/Day Years Used Date Smoking Tobacco: Never Smokeless Tobacco: Never Tobacco Cessation:Counseling Given: Not Answered Alcohol Use Standard Drinks/Week Comments No 0 (1 standard drink = 0.6 oz pur e alcohol) Housing Instability Answer Date Recorde d Are you worried that in the next 2 months you may not have stable housing? No 08/07/2024 Food Access & Nutrition Answer Date Rec orded Do you have access to a vari ety of food including fruits and vegetables? Yes 08/07/2024 Health Literacy Answer Date Recorded How often do you need to hav e someone help you when you read instructions, pamphlets, or other written material from your doctor or pharmacy? Never 08/07/2024 Caregiver: How often do you need to have someone help you when you read instructions, pamphlets, or other written material from your doctor or pharmacy? Not on file 08/07/2024 Financial Risk Answer Date Recorded How hard is it for you to pa y for the very basics like food, housing, medical care, and air conditioning / heating? Not very hard 08/07/2024 Transportation Answer Date Recorded Has the lack of transportati on kept you from meetings, work, or from getting things needed for daily living? No Has the lack of transportati on kept you from medical appointments or from getting medications? No 08/07/2024 Social Isolation Answer Date Recorded How often do you feel lonely or isolated from th ose around you? Never 08/07/2024 Food Risk Answer Date Recorded Within the past 12 months we worried whether our food would run out before we got money to buy more. Never true 08/07/2024 Within the past 12 months th e food we bought just didn't last and we didn't have money to get more. Never true 08/07/2024 Education Answer Date Recorded Do you think completing more education or training, like finishing a GED, going to college, or learning a trade, would be helpful for you? N/A 08/07/2024 Employment and Income Answer Date Recor ded During the last four weeks, have you been actively looking for work? No 08/07/2024 Living Situation Answer Date Recorded What is your living situation? 0 08/07/2024 Comments No Sex and Gender Information Value Date Recorded Sex Assigned at Female 12/01/2024 7:51 AM EDT Legal Sex Female 2:17 AM EST Gender Identity Female 12/01/2024 7:51 AM EDT Sexual Orientation Choose not to disclose 2024 7:51 AM EDT Obstetrics History Para Term AB IAB SAB Ectopic Multiple Livin g Live Births 2 2 2 2 Date Outcome GA Total Labor Labor/2nd/3rd Weight Sex Type Anes PTL Shavon A1 A5 Name Clin Term Term Last Filed Vital Signs Vital Sign Reading Time Taken Comments Blood Pressure 129/65 10/02/2024 11:06 AM EDT Pulse 76 10/02/2024 11:06 AM EDT Temperature 36.2 C (97.2 F) 10/02/2024 11:06 AM EDT Respiratory Rate 16 10/19/2024 10:19 AM EDT Oxygen Saturation 95% 09/14/2024 12:42 PM EDT Inhaled Oxygen Concentration - - Weight 111 kg (244 lb) 10/19/2024 10:19 AM EDT Height 157.5 cm (5' 2 ) 10/19/2024 10:19 AM EDT Body Mass Index 44.63 10/19/2024 10:19 AM EDT Plan of Treatment Upcoming Encounters Date Type Department Care Team (Late st Contact Info) Description 12/19/2024 10:00 AM EDT Office Visit Endocrinology - [address] [phone] Denise Hernandez, REED [address] [place] [address] 12/20/2024 10:30 AM EDT Office Visit Orthopedics - [address] [phone] Buster Garcia PA [address] [place] [phone] 12/21/2024 10:00 AM EDT Treatment Outpatient Rehabilitation - [address] [phone] Efren Wallis, PT 01/03/2025 9:30 AM EDT Office Visit Adult Medicine East - [address] [phone] Sylvia Monroy MD [address] [place] [address] 01/04/2025 10:15 AM EDT Office Visit Orthopedic Surgery [facility] [address] [phone] Patrice Alfred, PETER [address] [phone] Health Maintenance Due Date Last Done Comments Zoster Vaccines (1 of 2) 2011 Pneumococcal Vaccine: 50+ Years (2 of 2 - PCV) 02/28/2020 02/27/2019 RSV Immunization Adult Patients (1 - Risk 60-74 years 1-dose series) 2021 HIV Screening 03/21/2022 Medicare Annual Wellness Visit 03/21/2022 Depression Screening 04/12/2024 12/08/2023 Diabetes: Annual Retina Eye Exam 07/19/2024 07/20/2023 Diabetes: Blood Sugar Control Test (HGBA1C) 02/07/2025 08/08/2024, 04/27/2024, 01/14/2024, Additional history exists Diabetes: Annual Foot Exam 04/25/2025 04/25/2024, Social Influencers of Health Screening 08/07/2025 08/07/2024 Diabetes: Annual Urine Albumin-Creatinine Ratio (uACR) 08/08/2025 08/08/2024, 10/20/2023, 09/14/2018 Diabetes: Annual GFR (Glomerular Filtration Rate) 10/02/2025 10/02/2024, 08/08/2024, 01/14/2024, Additional history exists Hypertension/CHF/CAD Annual BMP Blood Test 10/02/2025 10/02/2024, 08/08/2024, 01/14/2024, Additional history exists Colorectal Cancer Screening: FIT-DNA (Cologuard) 12/22/2025 12/22/2022, 12/22/2022 Breast Cancer Screening 04/11/2026 04/11/20 24, 05/08/2022, 05/06/2021 DTaP,Tdap,and Td Vaccines (2 - Td or Tdap) 02/27/2029 02/27/2019 Cholesterol Screening (Lipid Panel) 08/08/2029 08/08/2024, 10/20/2023, 10/20/2023, Additional history exists Hepatitis C Screening Completed 06/15/2019 COVID-19 Vaccine Discontinued 03/05/2021, 09/2020, 06/18/2020 HIB Vaccines Aged Out No longer eligi ble based on patient's age to complete this topic HPV Vaccines Aged Out No longer eligi ble based on patient's age to complete this topic Hepatitis A Vaccines Aged Out No long er eligible based on patient's age to complete this topic Hepatitis B Vaccines Aged Out No long er eligible based on patient's age to complete this topic IPV Vaccines Aged Out No longer eligi ble based on patient's age to complete this topic Influenza Vaccine Discontinued MMR Vaccines Aged Out No longer eligi ble based on patient's age to complete this topic Meningococcal ACWY Vaccine Aged Out N o longer eligible based on patient's age to complete this topic Meningococcal B Vaccine Aged Out No l onger eligible based on patient's age to complete this topic RSV Immunization Patients Under 20 months Aged Out No longer eligible based on patient's age to complete this topic Varicella Vaccines Aged Out No longer eligible based on patient's age to complete this topic Goals Goal Patient Goal Type Associated Problems Recent Progress Patient-Stated? Author STG's 4 visits General Yes Efren Wallis, PT Note: Pt will be Independent and compliant with final HEP. Procedures Procedure Name Priority Date/Time Associated Diagnosis Comments XR KNEE 4+ VIEWS LEFT Routine 10/19/2024 10:16 AM EDT Left knee pain, unspecified chronicity Ward cyst, left TRIIODOTHYRONINE FREE Routine 10/02/2024 11:59 AM EDT Hypothyroidism, unspecified type FREE THYROXINE WITH REFLEX TO FREE TRIIODOTHYRONINE Routine 10/02/2024 11:59 AM EDT Hypothyroidism, unspecified type THYROID STIMULATING HORMONE WITH REFLEX TO FREE T4 AND FREE T3 Routine 10/02/2024 11:59 AM EDT Hypothyroidism, unspecified type BASIC METABOLIC PANEL Routine 10/02/2024 11:59 AM EDT Leg cramp MAGNESIUM Routine 10/02/2024 11:59 AM EDT Leg cramp VAS US DUPLEX LOWER EXT VENOUS LEFT STAT 09/14/2024 1:39 PM EDT Left leg swelling Left leg pain MICROALBUMIN CREATININE URINE RATIO Routine 08/08/2024 9:17 AM EDT Type 2 diabetes mellitus with morbid obesity (CMS/HCC V24, CMS/HCC V28) HEMOGLOBIN A1C Routine 08/08/2024 9:17 AM EDT Type 2 diabetes mellitus with morbid obesity ([facility]/HCC V24, CMS/HCC V28) LIPID PANEL WITH REFLEX TO DIRECT LDL Routine 08/08/2024 9:17 AM EDT Type 2 diabetes mellitus with morbid obesity (CMS/HCC V24, CMS/HCC V28) Primary hypertension Mixed hyperlipidemia MG MAMMO DIGITAL SCREENING W СЕРГЕЙ BILAT Routine 04/11/2024 10:24 AM EST Encounter for screening mammogram for breast cancer DEPRESSION SCREENING Routine 12/08/2023 DIABETES EYE EXAM Routine 07/20/2023 DIABETES FOOT EXAM Routine 03/31/2023 HEPATITIS C SCREENING Routine 06/15/2019 from Last 3 Months or Most Recently Relevant to Health Maintenance Results * XR Knee 4+ Views Left (10/19/2024 10:16 AM EDT) Anatomical Region Laterality Modality Lower Extremities, Knee Left [facility] 10/19/2024 5:14 PM EDT Impressions 10/19/2024 5:15 PM EDT No acute fracture or dislocation of the left knee. -------- FINAL REPORT -------- Dictated By: Viji Sosa Dictated Date: 10/19/2024 17:14 ET Assigned Physician: Viji Sosa Reviewed and Electronically Signed By: Viji Sosa Signed Date: 10/19/2024 17:15 ET Workstation ID: [id number] Transcribed By: Self Edit Transcribed Date: 10/19/2024 17:14 ET Narrative 10/19/2024 5:15 PM EDT HISTORY: JOINT PAIN, KNEE TECHNIQUE: 4 views of the left knee COMPARISON: None FINDINGS: No acute fracture or dislocation is seen. There is no joint effusion present. There is mild medial and lateral compartmental joint space narrowing. Small osteophytes of the medial femoral condyle and medial tibial plateau. Enthesopathy of the superior pole of the patella. No significant patellofemoral joint space narrowing. Soft tissues are unremarkable. Procedure Note Viji Sosa MD - 10/19/2024 HISTORY: JOINT PAIN, KNEE TECHNIQUE: 4 views of the left knee COMPARISON: None FINDINGS: No acute fracture or dislocation is seen. There is no joint effusionpresent. There is mild medial and lateral compartmental joint spacenarrowing. Small osteophytes of the medial femoral condyle and medialtibial plateau. Enthesopathy of the superior pole of the patella. Nosignificant patellofemoral joint space narrowing. Soft tissues areunremarkable. IMPRESSION: No acute fracture or dislocation of the left knee. -------- FINAL REPORT -------- Dictated By: Viji Sosa Dictated Date: 10/19/2024 17:14 ET Assigned Physician: Viji Sosa Reviewed and Electronically Signed By: Viji Sosa Signed Date: 10/19/2024 17:15 ET Workstation ID: [id number] Transcribed By: Self Edit Transcribed Date: 10/19/2024 17:14 ET us Buster MCBRIDE IMG XR PROCEDURES Final Result * (ABNORMAL) Thyroid stimulating hormone with reflex to free t4 and free t3 (10/02/2024 11:59 AM EDT) TSH 0.07(L) 0.40 - 4.00 mcIU/mL LAB CHEMISTRY METHOD 10/02/2024 8:24 PM EDT [facility] Blood Venous blood specimen / Unknown Venipuncture / Unknown 10/02/2024 11:59 AM EDT 10/02/2024 11:59 AM EDT us Denise MCBRIDE LAB BLOOD ORDERABLES Final Result [facility] [address] [place] [address], [place] [phone] * Free thyroxine with reflex to free triiodothyronine (10/02/2024 11:59 AM EDT) Free T4 1.52 0.70 - 1.80 ng/dL LAB CHEMISTRY METHOD 10/02/2024 9:14 PM EDT [facility] Blood Venous blood specimen / Unknown Venipuncture / Unknown 10/02/2024 11:59 AM EDT 10/02/2024 11:59 AM EDT Denise MCBRIDE LAB BLOOD ORDERABLES Final Result [facility] [address] [place] [address], [place] [phone] * Triiodothyronine free (10/02/2024 11:59 AM EDT) T3, Free 349 230 - 420 pcg/dL LAB CHEMISTRY METHOD 10/02/2024 10:13 PM EDT [facility] Blood Venous blood specimen / Unknown Venipuncture / Unknown 10/02/2024 11:59 AM EDT 10/02/2024 11:59 AM EDT Denise MCBRIDE LAB BLOOD ORDERABLES Final Result [facility] [address] [place] [address], [place] [phone] * Magnesium (10/02/2024 11:59 AM EDT) Magnesium 2.1 1.9 - 2.6 mg/dL LAB CHEMISTRY METHOD 10/02/2024 7:45 PM EDT [facility] Blood Venous blood specimen / Unknown Venipuncture / Unknown 10/02/2024 11:59 AM EDT 10/02/2024 11:59 AM EDT us Sylvia Monroy MD LAB BLOOD ORDERABL ES Final Result [facility] [address] [place] [address], * (ABNORMAL) Basic metabolic panel (10/02/2024 11:59 AM EDT) Sodium 142 133 - 145 mmol/L LAB CHEMISTRY METHOD 10/02/2024 8:[address] [facility] Potassium 4.7 3.5 - 5.5 mmol/L LAB CHEMISTRY METHOD 10/02/2024 8:[address] [facility] Chloride 109 96 - 110 mmol/L LAB CHEMISTRY METHOD 10/02/2024 8:[address] [facility] CO2 28 21 - 32 mmol/L LAB CHEMISTRY METHOD 10/02/2024 8:[address] [facility] Anion Gap 5 3 - 11 LAB CHEMISTRY METHOD 10/02/2024 8:[address] [facility] Glucose 126(H) 70 - 100 mg/dL LAB CHEMISTRY METHOD 10/02/2024 8:[address] [facility] BUN 15 5 - 25 mg/dL LAB CHEMISTRY METHOD 10/02/2024 8:[address] [facility] Creatinine 1.02 0.50 - 1.10 mg/dL LAB CHEMISTRY METHOD 10/02/2024 8:[address] [facility] eGFR 62 >=60 mL/min/1. 73m2 LAB CHEMISTRY METHOD 10/02/2024 8:[address] [facility] Comment:Calculation based on the Chronic Kidney Disease Epidemiology Collaboration (CKD-EPI) equation refit without adjustment for race. BUN/Creatinine Ratio 14.7 LAB CHEMISTRY METHOD 10/02/2024 8:[address] [facility] Calcium 9.0 8.5 - 10.5 mg/dL LAB CHEMISTRY METHOD 10/02/2024 8:13 PM EDT [facility] Blood Venous blood specimen / Unknown Venipuncture / Unknown 10/02/2024 11:59 AM EDT 10/02/2024 11:59 AM EDT us Sylvia Monroy MD LAB BLOOD ORDERABL ES Final Result [facility] [address] [place] [address], [place] [phone] * Vascular US duplex lower extremity venous left (09/14/2024 1:39 PM EDT) Anatomical Region Laterality Modality Vascular, Abdomen Ultrasound 09/14/2024 3:00 PM EDT Impressions 09/14/2024 3:01 PM EDT No evidence of deep venous thrombosis in the left lower extremity . Popliteal cyst as detailed. -------- FINAL REPORT -------- Dictated By: Cecilia Cotto Dictated Date: 09/14/2024 15:00 ET Assigned Physician: Cecilia Cotto Reviewed and Electronically Signed By: Cecilia Cotto Signed Date: 09/14/2024 15:01 ET Workstation ID: [id number] Transcribed By: Self Edit Transcribed Date: 09/14/2024 15:00 ET Narrative 09/14/2024 3:01 PM EDT VAS US DUPLEX LOWER EXT VENOUS LEFT VENOUS ULTRASOUND, LEFT LOWER EXTREMITY HISTORY: Edema and erythema in the left leg. Procedure: Venous ultrasound of the left leg was performed from the upper groin throughout the calf. FINDINGS: No echogenic thrombus was seen. The deep venous system throughout the left leg was compressible. There was normal waveform respiratory phasicity. There was normal augmentation of color flow and duplex Doppler wave form throughout the deep venous system during compression at the ankle. No fluid or cyst is seen in the popliteal fossa. Incidental findings of large popliteal cyst measuring 4.5 x 1.6 x 1.5 cm. Procedure Note Cecilia Cotto MD - 09/14/2024 VAS US DUPLEX LOWER EXT VENOUS LEFT VENOUS ULTRASOUND, LEFT LOWER EXTREMITY HISTORY: Edema and erythema in the left leg. Procedure: Venous ultrasound of the left leg was performed from the uppergroin throughout the calf. FINDINGS: No echogenic thrombus was seen. The deep venous systemthroughout the left leg was compressible. There was normal waveformrespiratory phasicity. There was normal augmentation of color flow andduplex Doppler wave form throughout the deep venous system duringcompression at the ankle. No fluid or cyst is seen in the poplitealfossa. Incidental findings of large popliteal cyst measuring 4.5 x 1.6 x 1.5cm. IMPRESSION: No evidence of deep venous thrombosis in the left lower extremity .Popliteal cyst as detailed. -------- FINAL REPORT -------- Dictated By: Cecilia Cotto Dictated Date: 09/14/2024 15:00 ET Assigned Physician: Cecilia Cotto Reviewed and Electronically Signed By: Cecilia Cotto Signed Date: 09/14/2024 15:01 ET Workstation ID: [id number] Transcribed By: Self Edit Transcribed Date: 09/14/2024 15:00 ET us Chichi MCBRIDE CV VASCULAR PROCEDURES Final Re sult * (ABNORMAL) Lipid panel with reflex to direct LDL (08/08/2024 9:17 AM EDT) Cholesterol 179 0 - 200 mg/dL LAB CHEMISTRY METHOD 08/08/2024 1:09 PM EDT [facility] Triglycerides 102 0 - 150 mg/dL LAB CHEMISTRY METHOD 08/08/2024 1:09 PM EDT [facility] HDL 49 >=40 mg/dL LAB CHEMISTRY METHOD 08/08/2024 1:09 PM EDT [facility] LDL Calculated 110(H) 0 - 100 mg/dL LAB CHEMISTRY METHOD 08/08/2024 1:09 PM EDT [facility] VLDL Cholesterol Fernando 20.4 mg/dL LAB CHEMISTRY METHOD 08/08/2024 1:09 PM EDT [facility] Non HDL Chol. (LDL+VLDL) 130 <145 mg/dL LAB CHEMISTRY METHOD 08/08/2024 1:09 PM EDT [facility] Chol/HDL Ratio 3.7 0.0 - 4.4 LAB CHEMISTRY METHOD 08/08/2024 1:09 PM EDT [facility] Blood Venous blood specimen / Unknown Venipuncture / Unknown 08/08/2024 9:17 AM EDT 08/08/2024 9:17 AM EDT us Sylvia Monroy MD LAB BLOOD ORDERABL ES Final Result [facility] [address] [place] [address], [place] [phone] * Microalbumin creatinine urine ratio (08/08/2024 9:17 AM EDT) Creatinine, Urine 74.0 mg/dL LAB CHEMISTRY METHOD 08/08/2024 3:54 PM EDT [facility] Microalb, Ur 5.2 0.0 - 29.0 mg/L LAB CHEMISTRY METHOD 08/08/2024 3:54 PM EDT [facility] Microalb/Creat Ratio 7 <30 mg/g creat LAB CHEMISTRY METHOD 08/08/2024 3:54 PM EDT [facility] Urine Urine specimen obtained by clean catch procedure / Unknown Non-blood Collection / Unknown 08/08/2024 9:17 AM EDT 08/08/2024 9:17 AM EDT us Chichi MCBRIDE LAB URINE ORDERABLES Final Resu lt Performing Organization Address [facility]/ZIP Co de Phone Number [facility] [address] [place] [address], [place] [phone] * (ABNORMAL) Hemoglobin A1c (08/08/2024 9:17 AM EDT) Hemoglobin A1C 7.3(H) <6.5 % LAB CHEMISTRY METHOD 08/08/2024 1:48 PM EDT [facility] Mean Bld Glu Estim. 163 mg/dL LAB CHEMISTRY METHOD 08/08/2024 1:48 PM EDT [facility] Blood Venous blood specimen / Unknown Venipuncture / Unknown 08/08/2024 9:17 AM EDT 08/08/2024 9:17 AM EDT us Denise MCBRIDE LAB BLOOD ORDERABLES Final Result [facility] [address] [place] [address], [place] [phone] * MG Mammo Digital Screening w Сергей bilat (04/11/2024 10:24 AM EST) Anatomical Region Laterality Modality Breast Bilateral Mammography 04/13/2024 7:49 AM EST Impressions 04/13/2024 7:54 AM EST Benign. BI-RADS CATEGORY: 1 - NEGATIVE RECOMMENDATION: Screening bilateral mammogram is recommended in 1 year. Mammo Location: [facility], [address] [place] [address], [phone], . -------- FINAL REPORT -------- Dictated By: Suma Lund Dictated Date: 04/13/2024 07:49 ET Assigned Physician: Suma Lund Reviewed and Electronically Signed By: Suma Lund Signed Date: 04/13/2024 07:54 ET Workstation ID: [id number] Transcribed By: Self Edit Transcribed Date: 04/13/2024 07:49 ET Narrative 04/13/2024 7:54 AM EST CLINICAL: 63 years old, Female, routine annual exam. COMPARISON: Mammograms 05/08/2022 and 05/06/2021. TECHNIQUE: Bilateral MLO and CC views were obtained digitally with 3-D mammogram (digital breast tomosynthesis). Computer-aided detection was utilized in evaluation of this exam (CAD). FINDINGS: There is no evidence of suspicious mass or architectural distortion. No worrisome calcifications are evident. There has been no significant change from prior exam(s). BREAST DENSITY: B - There are scattered areas of fibroglandular density. Procedure Note Suma Lund MD - 04/13/2024 CLINICAL: 63 years old, Female, routine annual exam. COMPARISON: Mammograms 05/08/2022 and 05/06/2021. TECHNIQUE: Bilateral MLO and CC views were obtained digitally with 3-Dmammogram (digital breast tomosynthesis). Computer-aided detection wasutilized in evaluation of this exam (CAD). FINDINGS: There is no evidence of suspicious mass or architectural distortion. Noworrisome calcifications are evident. There has been no significantchange from prior exam(s). BREAST DENSITY: B - There are scattered areas of fibroglandular density. IMPRESSION: Benign. BI-RADS CATEGORY: 1 - NEGATIVE RECOMMENDATION: Screening bilateral mammogram is recommended in 1 year. Mammo Location: [facility], [address] [place] [address], [id number], . -------- FINAL REPORT -------- Dictated By: Suma Lund Dictated Date: 04/13/2024 07:49 ET Assigned Physician: Suma Lund Reviewed and Electronically Signed By: Suma Lund Signed Date: 04/13/2024 07:54 ET Workstation ID: [id number] Transcribed By: Self Edit Transcribed Date: 04/13/2024 07:49 ET Sylvia Monroy MD IMG BI PROCEDURES Final Result * Depression Screening (12/08/2023) Depression Screening abstracted Historical Provider HEALTH MAINTENANCE Final Result * Diabetes Eye Exam (07/20/2023) Diabetes: Annual Retina Eye Exam abstracted Historical Provider HEALTH MAINTENANCE Final Result * Diabetes Foot Exam (03/31/2023) Diabetes: Annual Foot Exam abstracted Historical Provider HEALTH MAINTENANCE Final Result * Hepatitis C Screening (06/15/2019) Hepatitis C Screening abstracted us Historical Provider HEALTH MAINTENANCE Final Result from Last 3 Months or Most Recently Relevant to Health Maintenance Insurance MEDICAID - [place] A[employer] MEDICARE ADVANTAGE Care Teams Court Supervisor Relationship Specialty Start Date End Date Sylvia Monroy MD [address] [place] [phone] PCP - General Internal Medicine 11/10/21
== END 2024-12-14 19:58 | disposition left against medical advice (07) ==
PROVIDERS: Emergency Provider Emergency Medicine; PCP Internal Medicine
DX: M54.50 Low back pain, unspecified (principal); Z53.21 Procedure and treatment not carried out due to patient leaving prior to being seen by health care provider

== ENCOUNTER 2024-12-15 09:26 | Emergency (ER) | payer OTHER, SELFPAY ==
--- NOTE | ~2024-12-15 | XR_ITS ---
EXAMINATION: XR LUMBOSACRAL SPINE CLINICAL INFORMATION: midline lumbar back pain after work inj COMPARISON: November 21, 2023 TECHNIQUE: Three views of the lumbosacral spine. FINDINGS: There are 5 nonrib-bearing lumbar segments. There is mild to moderate vascular calcifications in the abdominal aorta. T11-12 demonstrates mild disc space narrowing with anterior osteophytes similar prior. L3-4 demonstrates subtle disc space narrowing similar to the prior. L4-5 demonstrates mild disc space narrowing similar to the prior. L5-S1 demonstrates facet sclerosis and osteophytes similar to the prior. XR/XR lumbar spine 2-3V IMPRESSION: Mild degenerative changes, similar to the prior. Electronically signed by: Macho Stuart MD 12/15/2024 11:28 AM EDT
[2024-12-15 09:37] VITALS: BP 164/70; PULSE 74; RESP 18; TEMP 36.6; O2SAT 95; BMI 44.5
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
--- OUTSIDE RECORDS SUMMARY | 2024-12-15 10:36 | XMS_ITS | Clinical Summary ---
Author Organization [facility] Address [address] [place] [address] Care Team Providers Care Compositor Apprentice Name Role Phone Unavailable Primary Care Provider Unavailabl e Source Comments PLEASE NOTE, if this patient is a minor, it may be UNLAWFUL to discuss sensitive information that is contained in these records (such as FAMILY PLANNING, MENTAL HEALTH or SUBSTANCE ABUSE) with the minor patient's parent or other person without the patient's specific authorization.[facility] Allergies Active Allergy Reactions Criticality Noted Date Comments Dogcegjzki-Gqqkturspocoi-Mh ff Rash Medium 02/16/2013 Lisinopril Swelling High 06/12/[address] [facility] 05/03/18 c/o lip swelling. Dx: angioedema. Medications blood pressure monitorIndications :HTN (hypertension) Dx: HTN, Obesity, Hypothyroidism 1 Kit 0 07/08/19 14 Active caneIndications:LB P (low back pain) Dx: morbid Obesity, LBP with radiculopathy 1 Device 0 03/01/20 14 Active Miscellaneous Medical Supply miscIndications:OS A (obstructive sleep apnea) by miscellaneous route every evening. CPAP Supplies - Mask, Tubing, Filters, Head Gear and Water Chamber. Refills x 12. Dx: KTALIN. 1 Each 0 09/28/19 15 Active atorvastatin (LIPITOR) 40 mg tabletIndications: Hyperlipidemia LDL goal <100 Take 1 Tab by mouth every evening. Stop atorvastatin 20 mg 90 Tab 1 11/20/19 16 Active arm brace (NEOPRENE WRIST SPLINT SUPPORT)Indication s:Carpal tunnel syndrome of right wrist Right wrist splint Dx: G56.01 To wear every night 1 Each 05/21/19 18 Active latanoprost (XALATAN) 0.005 % ophthalmic solution PONGA KINZA GOTA EN LOS DOS OJOS AL ACOSTARSE 5 10/30/19 18 Active cholecalciferol, vitamin D3, 1,000 unit capsuleIndications :Vitamin D insufficiency Take 1 Cap by mouth once daily 90 Cap 3 06/07/19 19 Active melatonin 10 mg capIndications:Ins omnia due to anxiety and fear Take 10 mg by mouth nightly at bedtime 90 Cap 3 06/07/19 19 Active blood-glucose meter (FREESTYLE LITE METER) monitoring kitIndications:Unc ontrolled diabetes mellitus type 2 without complications Test blood sugars TID w/meals and for symptoms of hypoglycemia 1 Each 07/02/19 19 Active blood sugar diagnostic (FREESTYLE LITE STRIPS) stripsIndications: Uncontrolled diabetes mellitus type 2 without complications Test blood sugars TID w/meals and for symptoms of hypoglycemia Dx: Z79.4 FREESTYLE LITE TEST STRIPS 100 Each 11 07/02/19 19 Active pen needle, diabetic 32 gauge x 08/25 ndle Use 1 needle for each injection QID 200 Each 08/25/19 19 Active insulin aspart U-100 (NOVOLOG FLEXPEN, U-100,) 100 unit/mL (3 mL) injectionIndicatio ns:Uncontrolled type 2 diabetes mellitus without complication, without long-term current use of insulin Inject SQ w/ Meals TID 2-14 units using sliding scale up to 42 units daily 12 mL 3 08/26/19 19 Active acetaminophen (TYLENOL 8 HOUR) 650 mg CR tabletIndications: Acute left-sided low back pain with bilateral sciatica Take 1 Tab by mouth every 8 (eight) hours as needed for pain 60 Tab 1 09/21/19 19 Active insulin glargine (LANTUS SOLOSTAR, U-100,/BASAGLAR KWIKPEN, U-100,) 100 unit/mL (3 mL) injection penIndications:Unc ontrolled diabetes mellitus type 2 without complications Inject subcutaneously 45 units am and 50 units hs 45 mL 4 09/27/19 19 Active amLODIPine (NORVASC) 5 mg tabletIndications: Essential hypertension TOME KINZA TABLETA TODOS LOS SANCHEZ 90 Tab 05/30/19 20 Active hydroCHLOROthiazid e (HYDRODIURIL) 25 mg tabletIndications: Essential hypertension TOME KINZA TABLETA TODOS LOS SANCHEZ 90 Tab 05/30/19 20 Active FREESTYLE LANCETS 28 gauge TEST BLOOD SUGARS 3 TIMES A DAY W/MEALS DX: Z79.4 FREESTYLE LANCETS(TOO SOON 09/02) 100 Each 11 08/14/19 20 Active levothyroxine 112 mcg tabletIndications: Other specified hypothyroidism Take 1 Tab by mouth once daily Needs an appt with a new PCP 90 Tab 02/06/20 20 Active Active Problems Problem Noted Date Diagnosed Date Carpal tunnel syndrome of right wrist 05/21/2017 Right elbow pain 05/08/17 xray neg 05/16/2017 Overview (05/16/2017): 05/08/17 R elbow xray: no osseous abnormality identified, possible small joint effusion. Plantar fasciitis, left 11/20/2015 Overview (11/20/2015): X-ray 11/19/15 at [facility] = small inferior calcaneal osteophyte and small osteophyte arising dorsal aspect anterior portion of the talus. Vitamin D insufficiency 11/20/2015 Poor compliance with medication 05/10/2015 Anxiety and depression 11/07/2014 Insomnia due to anxiety and fear 11/07/2014 Chronic left-sided low back pain with left-sided sciatica 06/07/2013 Overview (12/08/2017): Mild L4-L5 DDD per [facility] 11/09/14. 11/15/17 - 12/05/17: [facility] PT 2x/wk x 3 wks Bilateral shoulder pain 06/07/2013 Mild Degenerative disc disease, cervical c5-6 an d C6-7 02/16/2013 KATLIN (obstructive sleep apnea) 09/14/2012 Overview (02/03/2019): MOD., REM Dom. Sleep study 08/25/12 05/31/18 - Sleep study at [facility]: SEVERE KATLIN 08/29/18 - Sleep clinic F/U. C/w CPAP 02-24. [facility] Uncontrolled diabetes mellitus type 2 without co mplications 06/10/2009 Overview (12/19/2012): Meds started 06/2009. Hypothyroidism HTN (hypertension) Morbid obesity with BMI of 40.0-44.9, adult (CMS & HHS-HCC) Hyperlipidemia LDL goal <100 Right shoulder pain Overview (12/19/2012): Injured 11/2011. S/p arthroscopy 03/[address] Penaloza in [place], [place]. Family History Medical History Relation Name Comments Diabetes Brother 1 Diabetes Brother 2 Diabetes Father Hypertension Father Cancer Maternal Aunt breast Heart Problems Maternal Grandmother [place] Diabetes Mother Hypertension Mother Relation Name Status Comments Brother 1 Brother 2 Father (Age 74) Maternal Aunt Alive Maternal Grandmother Mother Alive Social History Tobacco Use Types Packs/Day Years Used Date Smoking Tobacco: Never Smokeless Tobacco: Never Alcohol Use Standard Drinks/Week Comments No 0 (1 standard drink = 0.6 oz pur e alcohol) Social Connections Answer Date Recorded Social Connections and Isolation 0 11/29/2018 Financial Resource Strain Answer Date R ecorded Financial Resource Strain 0 2018 Stress Answer Date Recorded Stress 0 11/29/2018 Physical Activity Answer Date Recorded Physical Activity 0 11/29/2018 Food Insecurity Answer Date Recorded Food 0 11/29/2018 Transportation Needs Answer Date Record ed Transportation 0 11/29/2018 Housing Stability Answer Date Recorded Housing 0 11/29/2018 Safety and Environment Answer Date David rded Safety 0 11/29/2018 Utilities Answer Date Recorded Utilities 0 11/29/2018 Employment Answer Date Recorded Employment 0 11/29/2018 Comments No Sex and Gender Information Value Date Recorded Sex Assigned at Female 03/11/2017 6:19 AM PST Legal Sex Female 11:36 AM PDT Gender Identity Female 03/11/2017 6:19 AM PST Sexual Orientation Straight 03/11/2017 6: 19 AM PST Last Filed Vital Signs Vital Sign Reading Time Taken Comments Blood Pressure 140/70 09/20/2018 1:44 PM EDT Pulse 64 09/20/2018 1:44 PM EDT Temperature 36.7 C (98.1 F) 09/20/2018 1:44 PM EDT Respiratory Rate 18 09/20/2018 1:44 PM EDT Oxygen Saturation - - Inhaled Oxygen Concentration - - Weight 109.8 kg (242 lb) 09/20/2018 1:44 PM EDT Height 157.5 cm (5' 2.01 ) 09/20/2018 1:44 PM ED T Body Mass Index 44.25 09/20/2018 1:44 PM EDT Plan of Treatment Not on file Goals Goal Patient Goal Type Associated Problems Recent Progress Patient-Stated? Author Increase physical activity Exercise Carla Gonzalez Note: [facility] Insurance [place]
--- OUTSIDE RECORDS SUMMARY | 2024-12-15 10:36 | XMS_ITS | Clinical Summary ---
Author Organization [facility] [address] [place] [address] [place] [phone] Phone Care Team Providers Care Fuselage Framer Name Role Phone Sylvia Monroy MD Primary Care Prov ider Allergies Active Allergy Reactions Criticality Noted Date Comments Jfywwvmsfr-Jvndgygeakucf-Em ff Rash Medium 02/16/2013 Lantuss-Forte 01/15/2021 Lisinopril Swelling 10/12/2018 Other Hives 10/12/2018 Fioricet W- Codeine [Xepzyowlvw-ypvo-dmon-cod ] Medications IBUPROFEN ORAL Take 1 tablet [...] s:Type 2 diabetes mellitus with morbid obesity (CMS/[facility] V24, CMS/[facility] V28) USE TO TEST BLOOD SUGAR THREE [...] Problem Noted Date Diagnosed Date Morbid obesity ([facility] V24, [facility] V28) 2024 Diabetic retinopathy of both eyes ([facility] V24, [facility] V28) 01/28/2023 Lichen sclerosus 12/31/2021 Overview (03/03/2024): [...] Anxiety and depression 10/12/2018 Overview (03/03/2024): F/u [facility] Glaucoma 10/12/2018 Hyperlipidemia 10/12/2018 Assessment & Plan [...] 2 diabetes mellitus wit h morbid obesity ([facility] V24, [facility] V28) 10/12/2018 Overview (03/03/2024): Follows with endocrinology [...] 10:00 AM EDT Evaluation Outpatient Rehabilitation - [address] [phone] Efren Wallis, PT Strain of left knee and leg, subsequent encounter (Primary Dx); Knee strain, left, initial encounter 11/01/2024 10:15 AM EDT Office Visit Orthopedic Surgery - [address] [phone] Patrice Alfred DPM Controlled type 2 diabetes with neuropathy ([facility] V24, [facility] V28) (Primary Dx); Arthritis of both feet; Hammertoes of both feet; Ingrown right big toenail; Dermatophytosis, nail 10/19/2024 10:05 AM EDT - 10/19/2024 11:59 PM EDT Hospital Encounter XRAY - [address] [phone] Left knee pain, unspecified chronicity; Ward cyst, left Discharge Disposition: Home or Self Care 10/19/2024 10:00 AM EDT Consult Orthopedics [address] [phone] Buster Garcia PA Knee strain, left, initial encounter (Primary Dx); Synovial cyst of popliteal space (Ward), left knee; Left leg swelling; Left leg pain 10/02/2024 11:15 AM EDT Office Visit Adult Medicine [address] [phone] Sylvia Cameron MD Type 2 diabetes mellitus with morbid obesity (CMS/HCC V24, CMS/HCC V28) (Primary Dx); Primary hypertension; Mixed hyperlipidemia; Leg cramp 09/14/2024 1:09 PM EDT - 09/14/2024 11:59 PM EDT Hospital Encounter Radiology Department - [address] [phone] Left leg swelling; Left leg pain Discharge Disposition: Home or Self Care 09/14/2024 12:30 PM EDT Office Visit Adult Medicine [address] [phone] Chichi King PA Synovial cyst of popliteal [...] APPENDECTOMY PROCEDURE: HISTORICAL APPENDECTOMY PARTIAL HYSTERECTOMY PROCEDURE: IA SUPRACERVICAL ABDL HYSTER W/WO RMVL TUBE OVARY SHOULDER SURGERY Right PROCEDURE: HISTORICAL SHOULDER SURGERY; COMMENT: rotator cuff SHOULDER SURGERY 07/02/2023 Right PROCEDURE: HISTORICAL SHOULDER SURGERY; COMMENT: right shoulder arthroscopy Medical History Medical History Date Comments Anxiety and depression 10/12/2018 DX:Anxiet y and depression; COMMENT: F/u [facility] counseling Uncontrolled type 2 diabetes mellitus with hyperglycemia ([facility] V24, [facility] V28) 10/12/2018 DX:Uncontrolled type 2 diabe juan mellitus with hyperglycemia ([facility]) Hypothyroidism 10/12/2018 DX:Hypothyroidis m Hypertension 10/12/2018 DX:Hypertension Hyperlipidemia 10/12/2018 DX:Hyperlipidemi a Morbid obesity ([facility] V24, [facility] V28) 10/12/2018 DX:Morbid obesity ([facility]) KATLIN on CPAP 10/12/2018 DX:KALTIN on CPAP Glaucoma 10/12/2018 DX:Glaucoma Insomnia 10/12/2018 DX:Insomnia Diabetic retinopathy of both eyes ([facility] V24, [facility] V28) 01/28/2023 DX:Diabetic retinopathy of both eyes ([facility]) Family History Medical History Relation Name Comments [...] 10:00 AM EDT Office Visit Endocrinology - [address] [phone] Denise Hernandez, REED [address] [place] [address] 12/20/2024 10:30 AM EDT Office Visit Orthopedics - [address] [phone] Buster Garcia PA [address] [place] [phone] 12/21/2024 10:00 AM EDT Treatment Outpatient Rehabilitation - [address] [phone] Efren Wallis, PT 01/03/2025 9:30 AM EDT Office Visit Adult Medicine East - [address] [phone] Sylvia Monroy MD [address] [place] [address] 01/04/2025 10:15 AM EDT Office Visit Orthopedic Surgery [facility] [address] [phone] Patrice Alfred, PETER [address] [phone] Health Maintenance Due Date Last Done Comments [...] Type 2 diabetes mellitus with morbid obesity ([facility]/HCC V24, CMS/HCC V28) LIPID PANEL WITH REFLEX [...] Laterality Modality Lower Extremities, Knee [facility] 10/19/2024 5:14 PM EDT Impressions 10/19/2024 5:15 PM EDT No acute fracture or dislocation of the left knee. -------- FINAL REPORT -------- Dictated By: Viji Soas Dictated Date: 10/19/2024 17:14 ET Assigned Physician: Viji Sosa Reviewed and Electronically Signed By: Viji Sosa Signed Date: 10/19/2024 17:15 ET Workstation ID: [id number] Transcribed By: Self Edit Transcribed Date: 10/19/2024 [...] Signed Date: 10/19/2024 17:15 ET Workstation ID: [id number] Transcribed By: Self Edit Transcribed Date: 10/19/2024 17:14 ET us Buster MCBRIDE IMG XR PROCEDURES Final Result * (ABNORMAL) Thyroid stimulating hormone with reflex to free t4 and free t3 (10/02/2024 11:59 AM EDT) TSH 0.07(L) 0.40 - 4.00 mcIU/mL LAB CHEMISTRY METHOD 10/02/2024 8:24 PM EDT [facility] Blood Venous blood specimen / Unknown Venipuncture / Unknown 10/02/2024 11:59 AM EDT 10/02/2024 11:59 AM EDT us Denise MCBRIDE LAB BLOOD ORDERABLES Final Result [facility] [address] [place] [address], [place] [phone] * Free thyroxine with reflex to free triiodothyronine (10/02/2024 11:59 AM EDT) Free T4 1.52 0.70 - 1.80 ng/dL LAB CHEMISTRY METHOD 10/02/2024 9:14 PM EDT [facility] Blood Venous blood specimen / Unknown Venipuncture / Unknown 10/02/2024 11:59 AM EDT 10/02/2024 11:59 AM EDT Denise MCBRIDE LAB BLOOD ORDERABLES Final Result [facility] [address] [place] [address], [place] [phone] * Triiodothyronine free (10/02/2024 11:59 AM EDT) T3, Free 349 230 - 420 pcg/dL LAB CHEMISTRY METHOD 10/02/2024 10:13 PM EDT [facility] Blood Venous blood specimen / Unknown Venipuncture / Unknown 10/02/2024 11:59 AM EDT 10/02/2024 11:59 AM EDT Denise MCBRIDE LAB BLOOD ORDERABLES Final Result [facility] [address] [place] [address], [place] [phone] * Magnesium (10/02/2024 11:59 AM EDT) Magnesium 2.1 1.9 - 2.6 mg/dL LAB CHEMISTRY METHOD 10/02/2024 7:45 PM EDT [facility] Blood Venous blood specimen / Unknown Venipuncture / Unknown 10/02/2024 11:59 AM EDT 10/02/2024 11:59 AM EDT us Sylvia Monroy MD LAB BLOOD ORDERABL ES Final Result [facility] [address] [place] [address], * (ABNORMAL) Basic metabolic panel (10/02/2024 11:59 AM EDT) Sodium 142 133 - 145 mmol/L LAB CHEMISTRY METHOD 10/02/2024 8:13 PM [facility] Potassium 4.7 3.5 - 5.5 mmol/L LAB CHEMISTRY METHOD 10/02/2024 8:13 PM [facility] Chloride 109 96 - 110 mmol/L LAB CHEMISTRY METHOD 10/02/2024 8:13 PM [facility] CO2 28 21 - 32 mmol/L LAB CHEMISTRY METHOD 10/02/2024 8:13 PM [facility] Anion Gap 5 3 - 11 LAB CHEMISTRY METHOD 10/02/2024 8:13 PM [facility] Glucose 126(H) 70 - 100 mg/dL LAB CHEMISTRY METHOD 10/02/2024 8:13 PM [facility] BUN 15 5 - 25 mg/dL LAB CHEMISTRY METHOD 10/02/2024 8:13 PM [facility] Creatinine 1.02 0.50 - 1.10 mg/dL LAB CHEMISTRY METHOD 10/02/2024 8:13 PM [facility] eGFR 62 >=60 mL/min/1. 73m2 LAB CHEMISTRY METHOD 10/02/2024 8:13 PM [facility] Comment:Calculation based on the Chronic Kidney Disease Epidemiology Collaboration (CKD-EPI) equation refit without adjustment for race. BUN/Creatinine Ratio 14.7 LAB CHEMISTRY METHOD 10/02/2024 8:13 PM [facility] Calcium 9.0 8.5 - 10.5 mg/dL LAB CHEMISTRY METHOD 10/02/2024 8:13 PM EDT [facility] Blood Venous blood specimen / Unknown Venipuncture / Unknown 10/02/2024 11:59 AM EDT 10/02/2024 11:59 AM EDT us Sylvia Monroy MD LAB BLOOD ORDERABL ES Final Result [facility] [address] [place] [address], [place] [phone] * Vascular US duplex lower extremity venous [...] Signed Date: 09/14/2024 15:01 ET Workstation ID: [id number] Transcribed By: Self Edit Transcribed Date: 09/14/2024 [...] Signed Date: 09/14/2024 15:01 ET Workstation ID: [id number] Transcribed By: Self Edit Transcribed Date: 09/14/2024 15:00 ET us Chichi MCBRIDE CV VASCULAR PROCEDURES Final Re sult * (ABNORMAL) Lipid panel with reflex to direct LDL (08/08/2024 9:17 AM EDT) Cholesterol 179 0 - 200 mg/dL LAB CHEMISTRY METHOD 08/08/2024 1:09 PM EDT [facility] Triglycerides 102 0 - 150 mg/dL LAB CHEMISTRY METHOD 08/08/2024 1:09 PM EDT [facility] HDL 49 >=40 mg/dL LAB CHEMISTRY METHOD 08/08/2024 1:09 PM EDT [facility] LDL Calculated 110(H) 0 - 100 mg/dL LAB CHEMISTRY METHOD 08/08/2024 1:09 PM EDT [facility] VLDL Cholesterol Fernando 20.4 mg/dL LAB CHEMISTRY METHOD 08/08/2024 1:09 PM EDT [facility] Non HDL Chol. (LDL+VLDL) 130 <145 mg/dL LAB CHEMISTRY METHOD 08/08/2024 1:09 PM EDT [facility] Chol/HDL Ratio 3.7 0.0 - 4.4 LAB CHEMISTRY METHOD 08/08/2024 1:09 PM EDT [facility] Blood Venous blood specimen / Unknown Venipuncture / Unknown 08/08/2024 9:17 AM EDT 08/08/2024 9:17 AM EDT us Sylvia Monroy MD LAB BLOOD ORDERABL ES Final Result [facility] [address] [place] [address], [place] [phone] * Microalbumin creatinine urine ratio (08/08/2024 9:17 AM EDT) Creatinine, Urine 74.0 mg/dL LAB CHEMISTRY METHOD 08/08/2024 3:54 PM EDT [facility] Microalb, Ur 5.2 0.0 - 29.0 mg/L LAB CHEMISTRY METHOD 08/08/2024 3:54 PM EDT [facility] Microalb/Creat Ratio 7 <30 mg/g creat LAB CHEMISTRY METHOD 08/08/2024 3:54 PM EDT [facility] Urine Urine specimen obtained by clean catch procedure / Unknown Non-blood Collection / Unknown 08/08/2024 9:17 AM EDT 08/08/2024 9:17 AM EDT us Chichi MCBRIDE LAB URINE ORDERABLES Final Resu lt Performing Organization Address [facility]/ZIP Co de Phone Number [facility] [address] [place] [address], [place] [phone] * (ABNORMAL) Hemoglobin A1c (08/08/2024 9:17 AM EDT) Hemoglobin A1C 7.3(H) <6.5 % LAB CHEMISTRY METHOD 08/08/2024 1:48 PM EDT [facility] Mean Bld Glu Estim. 163 mg/dL LAB CHEMISTRY METHOD 08/08/2024 1:48 PM EDT [facility] Blood Venous blood specimen / Unknown Venipuncture / Unknown 08/08/2024 9:17 AM EDT 08/08/2024 9:17 AM EDT us Denise MCBRIDE LAB BLOOD ORDERABLES Final Result [facility] [address] [place] [address], [place] [phone] * MG Mammo Digital Screening w Сергей bilat (04/11/2024 10:24 AM EST) Anatomical Region Laterality Modality Breast Bilateral Mammography 04/13/2024 7:49 AM EST Impressions 04/13/2024 7:54 AM EST Benign. BI-RADS CATEGORY: 1 - NEGATIVE RECOMMENDATION: Screening bilateral mammogram is recommended in 1 year. Mammo Location: [facility], [address] [place] [address], [id number], . -------- FINAL REPORT -------- Dictated By: Suma Lund Dictated Date: 04/13/2024 07:49 ET Assigned Physician: Suma Lund Reviewed and Electronically Signed By: Suma Lund Signed Date: 04/13/2024 07:54 ET Workstation ID: [id number] Transcribed By: Self Edit Transcribed Date: 04/13/2024 [...] is recommended in 1 year. Mammo Location: [facility], [address] [place] [address], [phone], . -------- FINAL REPORT -------- Dictated By: Suma Lund Dictated Date: 04/13/2024 07:49 ET Assigned Physician: Suma Lund Reviewed and Electronically Signed By: Suma Lund Signed Date: 04/13/2024 07:54 ET Workstation ID: [id number] Transcribed By: Self Edit Transcribed Date: 04/13/2024 [...] - [place] [employer] [employer] Care Teams Fuselage Framer Relationship Specialty Start Date End Date Sylvia Monroy MD [address] [place] [phone] PCP - General Internal Medicine 11/10/21
[2024-12-15 12:29] VITALS: BP 164/70; PULSE 74; RESP 18; TEMP 36.6; O2SAT 95
== END 2024-12-15 12:29 | disposition home or self-care (01) ==
PROVIDERS: Emergency Provider Emergency Medicine; PCP Internal Medicine
DX: S39.012A Strain of muscle, fascia and tendon of lower back, initial encounter (principal); E11.9 Type 2 diabetes mellitus without complications; X58.XXXA Exposure to other specified factors, initial encounter; Y93.9 Activity, unspecified; Y92.9 Unspecified place or not applicable; Y99.8 Other external cause status; Z79.899 Other long term (current) drug therapy; Z79.4 Long term (current) use of insulin
CPT/HCPCS: 72100; 96372; 99283; 99284; J1885

== ENCOUNTER → 2024-12-15 10:48 | Outpatient (BNV) | payer OTHER, SELFPAY | PROVIDERS: Emergency Provider Emergency Medicine; PCP Internal Medicine; Visit Provider Radiology Diagnostic Radiology | DX: M54.50 Low back pain, unspecified (principal) | CPT/HCPCS: 72100 ==